=== PATIENT | female | born 1960 | race Caucasian/White ===

== ENCOUNTER 2018-10-19 19:45 | Inpatient (IN) ==
[2018-10-19] MEDS ORDERED: TORADOL IV ONE (20:15)
[2018-10-19] MEDS ORDERED: NS 1,000 ML IV ONE ×2 (20:15→23:03)
--- NOTE | 2018-10-19 20:40 | Diag Imaging Result Doc PS360 ---
EXAM: CHEST-1 VIEW HISTORY: fever TECHNIQUE: Chest single view 10/22/2017 COMPARISON: None. FINDINGS: The lungs are well expanded. The heart is not enlarged. There is a right-sided portacatheter is similar to the prior study. The vessels are not distended. Small left pleural effusion with a tiny basilar infiltrate. IMPRESSION: Tiny left basilar infiltrate and effusion Electronically signed by Juanjo Castañeda 10/19/2018 8:37 PM
[2018-10-19 21:33] LABS: BASO# 0.04 X1000 (0.0-0.2); BASO% 0.3 % (0.0-0.8); EOS# 0.05 X1000 (0.0-0.7); EOS% 0.4 % (0.0-10.0); HEMATOCRIT 33.6 % (37.0-47.0); HEMOGLOBIN 11.3 g/dL (12.0-16.0); IMM GRAN# 0.04 X1000 (0.0-0.04); IMM GRAN% 0.3 % (0.0-0.5); LYMPH% 6.8 % (20.5-51.1); MCH 35.5 PG (27-31); MCHC 33.6 g/dL (33-37); MCV 105.7 FL (81-99); MONO# 1.53 X1000 (0.11-0.59); MONO% 11.6 % (1.7-9.3); MPV 11.2 FL (7.4-10.4); NEUT# 10.63 X1000 (1.4-6.5); NEUT% 80.6 % (42.2-75.2); PLT 99 X1000 (130-400); RBC 3.18 XMIL (4.2-5.4); RDW 17.6 % (11.5-14.5); WBC 13.19 X1000 (4.8-10.8)
[2018-10-19 21:35] LABS: INR 1.4; PROTIME 17.4 Seconds (11.0-16.0)
[2018-10-19 21:36] LABS: PTT 38.7 Seconds (22.3-41.8)
[2018-10-19 21:56] LABS: AGAP 11; ALBUMIN 2.5 g/dL (3.5-5.0); ALKALINE PHOSPHATASE 375 U/L (32-104); BUN 9 mg/dL (8-22); CALCIUM 7.2 mg/dL (8.8-10.2); CHLORIDE 99 mmol/L (98-107); CK PROFILE 42 U/L (24-173); COSMO 261; CREATININE 0.6 mg/dL (0.5-0.9); ESTIMATED GFR > 60; GLUCOSE 84 mg/dL (70-104); GOT 38 U/L (10-30); GPT 16 U/L (10-36); POTASSIUM 4.6 mmol/L (3.5-5.1); SODIUM 131 mmol/L (136-145); TCO2 21 mmol/L (25-35); TOTAL BILIRUBIN 4.38 mg/dL (0.20-1.00); TOTAL PROTEIN 4.9 g/dL (6.3-8.3)
[2018-10-19 22:22] LABS: URINE SOURCE CLEAN CATCH
[2018-10-19 22:42] LABS: BILIRUBIN URINE SMALL (NEGATIVE); BLOOD URINE TRACE (NEGATIVE); COLOR YELLOW; GLUCOSE URINE NEGATIVE (NEGATIVE); KETONE URINE 10 mg/dL (NEGATIVE); LEUKOCYTES URINE NEGATIVE (NEGATIVE); NITRITE URINE NEGATIVE (NEGATIVE); PROTEIN URINE TRACE mg/dL (NEGATIVE); TURBIDITY URINE CLEAR (CLEAR); UROBILINOGEN URINE 2 mg/dL (NORMAL)
[2018-10-19 22:43] LABS: UR EPITHELIAL CELLS <10 /HPF (<10); URINE BACTERIA NEGATIVE /HPF; URINE RBC <10 /HPF (<10); URINE WBC <10 /HPF (<10)
[2018-10-19] MEDS ORDERED: VANCOMYCIN 1 GM/NS 1 GM/250 ML IVPB IV ONE (23:03)
[2018-10-19] MEDS ORDERED: ZOSYN 3.375 GM in NS 50 ML IV ONE (23:03)
--- NOTE | 2018-10-19 23:07 | PROVIDER DOCUMENTATION ---
This chart was entered by Brook Holm Scribe, acting as scribe for Chris Jean-Baptiste MD. HPI-Fever - General Chief Complaint: SEPSIS ALERT - D Stated Complaint: FEVER/SWELLING/ Time Seen by Provider: 10/19/18 20:00 Source: patient Allergies/Adverse Reactions: Patient Allergies Allergy/AdvReac Type Severity Reaction Status Date / Time No Known Allergies Allergy Verified 12/11/17 15:06 Home Medications: Home Medication List Medication Instructions Recorded Confirmed Last Taken Type Levothyroxine [Synthroid] 50 microgm PO DAILY 09/01/17 10/16/18 10/15/18 21:00 History Ranitidine [Zantac] 150 mg PO HS 09/01/17 10/16/18 10/15/18 21:00 History Dronabinol [Marinol] 2.5 mg PO BID 10/22/17 10/16/18 10/15/18 21:00 History Ondansetron HCl 4 mg PO TID 10/22/17 10/16/18 10/15/18 21:00 History Promethazine [Phenergan] 12.5 mg PO Q6H PRN PRN 10/22/17 10/16/18 10/15/18 21:00 History - History of Present Illness-Fever Nature of Presenting Problem: pt is a 58 yr old female presenting with complaint of fever and chills x 1 day, pt referred to ER by oncologist. pt reports she has colon cancer with liver mets, pt has radioactive beads implanted in liver. pt reports paracentesis performed 4 days ago with 3L pulled off. pt denies any other complaints, no shortness of breath, no pain. Fever Severity/Quality: reports: greater than 102 F Onset/Duration: reports: this afternoon Timing: reports: still present Severity: reports: moderate Context: reports: cancer-chemotherapy Recent Illness?: reports: none Fever Therapy OCCUPATIONAL THERAPIST'S ASSISTANT: Initiated none Cognitive Baseline: alert, oriented x3 Modifying Factors: improves with: nothing Associated Symptoms: reports: fever/chills. denies: back/neck pain, chest pain, EENT symptoms, genitourinary problems, sinus congestion/drainage, shortness of breath Similar Symptoms Previously?: No Recently seen or treated by another doctor?: Yes - Glascow Coma Score Best Eye Response ([place]): (4) open spontaneously Best Verbal Response ([place]): (5) oriented Best Motor Response ([place]): (6) obeys commands [place] Total: 15 Review of Systems - Adult - REVIEW OF SYSTEMS - ADULT Constitutional: reports: chills, fever Eyes: reports: no symptoms reported Ears, Nose, Mouth & Throat: denies: ear pain, sinus problem, throat pain Cardiovascular: denies: chest pain, palpitations, syncope Respiratory: denies: cough, shortness of breath Gastrointestinal: denies: abdominal pain, diarrhea, nausea, vomiting Genitourinary: denies: dysuria, frequency, flank pain Musculoskeletal: reports: no symptoms reported Integumentary: reports: no symptoms reported Neurological: denies: dizziness/vertigo, headache/migraines Psychiatric: reports: no symptoms reported Endocrine: reports: no symptoms reported Hematologic/Lymphatic: reports: no symptoms reported Allergic/Immunologic: reports: no symptoms reported All Other Systems: Reviewed and Negative Past History - Adult - PAST MEDICAL HISTORY-ADULT Review of Records: reports: Old Records Reviewed, Nursing Assessment Review, Medications Reviewed, Social history reviewed & non-contributory. Major Childhood Illnesses: reports: denies history Cardiovascular: reports: denies history Respiratory: reports: denies history Gastrointestinal: reports: denies history Obstetrical/Gynecological: reports: denies history Genitourinary: reports: denies history Musculoskeletal: reports: denies history Neurological: reports: denies history Endocrine/Immune: reports: denies history Other Conditions: reports: denies history - IMMUNIZATION STATUS Childhood Immunizations: See Nurse Assessment Flu Vaccine: See Nurse Assessment - FAMILY HISTORY Family History: reviewed, not pertinent - SOCIAL HISTORY Smoking: non-smoker Substance Use: denies Living Situation: family Physical Exam-General - PHYSICAL EXAM-ADULT Initial Vital Signs Reviewed: Yes - CONSTITUTIONAL General Appearance: alert, no apparent distress - EYES Eyes: PERRL/EOMI - HEAD, EARS, NOSE, MOUTH & THROAT HENMT: normocephalic/atraumatic, moist mucous membranes - NECK Neck: non-tender, full range of motion, supple, normal inspection - RESPIRATORY Respiratory: chest non-tender, lungs clear, normal breath sounds - CARDIOVASCULAR Cardiovascular: normal peripheral pulses, regular rate, rhythm, no edema - GASTROINTESTINAL (ABDOMEN) Abdominal Exam: normal bowel sounds, non tender, soft - LYMPHATIC Lymphatic: no adenopathy - MUSCULOSKELETAL Back Exam: normal inspection, no CVA tenderness, no vertebral tenderness Extremity: normal range of motion, non-tender, normal gait, normal inspection - SKIN Integumentary: normal color, normal turgor, warm/dry - NEUROLOGIC Neurologic: grossly normal - PSYCHIATRIC Psych/Mental Status: normal mood/affect Progress - PLAN OF CARE/RESULTS Progress/Plan/Lab Results: Vital Signs - 8 hr 10/19/18 19:53 10/19/18 20:11 10/19/18 20:20 Temperature 102.7 F H Pulse Rate 123 H 116 H 114 H Respiratory Rate 18 18 20 Blood Pressure 98/60 104/76 O2 Sat by Pulse Oximetry 95 96 96 10/19/18 20:30 10/19/18 20:31 10/19/18 20:40 Temperature Pulse Rate 115 H 114 H 115 H Respiratory Rate 23 25 H 25 H Blood Pressure 99/70 O2 Sat by Pulse Oximetry 95 95 95 10/19/18 20:50 10/19/18 21:00 10/19/18 21:01 Temperature Pulse Rate 116 H 115 H 116 H Respiratory Rate 24 17 22 Blood Pressure 97/68 O2 Sat by Pulse Oximetry 96 97 95 10/19/18 21:10 10/19/18 21:20 10/19/18 21:30 Temperature Pulse Rate 115 H 115 H 110 H Respiratory Rate 24 24 23 Blood Pressure O2 Sat by Pulse Oximetry 95 95 96 10/19/18 21:32 10/19/18 21:40 10/19/18 21:50 Temperature Pulse Rate 111 H 114 H 110 H Respiratory Rate 21 26 H 28 H Blood Pressure 99/73 O2 Sat by Pulse Oximetry 96 95 96 10/19/18 21:54 10/19/18 22:00 10/19/18 22:01 Temperature Pulse Rate 109 H 107 H 106 H Respiratory Rate 25 H 23 17 Blood Pressure 99/73 89/51 O2 Sat by Pulse Oximetry 96 96 96 10/19/18 22:10 10/19/18 22:20 Temperature Pulse Rate 105 H 102 H Respiratory Rate 17 21 Blood Pressure O2 Sat by Pulse Oximetry 96 97 Laboratory Results - last 24 hr 10/19/18 10/19/18 10/19/18 21:02 21:02 21:02 WBC 13.19 H RBC 3.18 L Hgb 11.3 L Hct 33.6 L MCV 105.7 H MCH 35.5 H MCHC 33.6 RDW Std Deviation 17.6 H Plt Count 99 L MPV 11.2 H Immature Gran % (Auto) 0.3 Neut % (Auto) 80.6 H Lymph % (Auto) 6.8 L [place] % (Auto) 11.6 H Eos % (Auto) 0.4 Baso % (Auto) 0.3 Immature Gran # (Auto) 0.04 Neut # (Auto) 10.63 H Lymph # (Auto) 0.90 L [place] # (Auto) 1.53 H Eos # (Auto) 0.05 Baso # (Auto) 0.04 PT 17.4 H INR 1.40 PTT (Actin FS) 38.7 Sodium 131 L Potassium 4.6 Chloride 99 Carbon Dioxide 21 L Anion Gap 11 BUN 9 Creatinine 0.6 Estimated GFR/1.73 m2 > 60 BUN/Creatinine Ratio 15 Glucose 84 Calculated Osmolality 261 Calcium 7.2 L Total Bilirubin 4.38 H AST 38 H ALT 16 Alkaline Phosphatase 375 H Creatine Kinase 42 Troponin T Total Protein 4.9 L Albumin 2.5 L Globulin 2.4 Albumin/Globulin Ratio 1.0 Plasma Lactate Urine Source Urine Color Urine Turbidity Urine pH Ur Specific [place] Urine Protein Ur Glucose (Stick) Ur Ketones (Stick) Urine Blood Urine Nitrite Urine Bilirubin Urobilinogen Dipstick Urine Leukocytes Urine WBC (Auto) Urine RBC (Auto) U Epithel Cells (Auto) Urine Bacteria (Auto) 10/19/18 10/19/18 10/19/18 21:02 21:02 21:52 WBC RBC Hgb Hct MCV MCH MCHC RDW Std Deviation Plt Count MPV Immature Gran % (Auto) Neut % (Auto) Lymph % (Auto) [place] % (Auto) Eos % (Auto) Baso % (Auto) Immature Gran # (Auto) Neut # (Auto) Lymph # (Auto) [place] # (Auto) Eos # (Auto) Baso # (Auto) PT INR PTT (Actin FS) Sodium Potassium Chloride Carbon Dioxide Anion Gap BUN Creatinine Estimated GFR/1.73 m2 BUN/Creatinine Ratio Glucose Calculated Osmolality Calcium Total Bilirubin AST ALT Alkaline Phosphatase Creatine Kinase Troponin T < 0.010 Total Protein Albumin Globulin Albumin/Globulin Ratio Plasma Lactate 1.1 Urine Source CLEAN CATCH Urine Color YELLOW Urine Turbidity CLEAR Urine pH 6.0 Ur Specific [place] 1.020 Urine Protein TRACE A Ur Glucose (Stick) NEGATIVE Ur Ketones (Stick) 10 A Urine Blood TRACE A Urine Nitrite NEGATIVE Urine Bilirubin SMALL A Urobilinogen Dipstick 2 A Urine Leukocytes NEGATIVE Urine WBC (Auto) <10 Urine RBC (Auto) <10 U Epithel Cells (Auto) <10 Urine Bacteria (Auto) NEGATIVE Orders Category Date Time Status Cardiac Monitoring DIRECTED Care 10/19/18 20:14 Active IV Insertion ORDERED Care 10/19/18 20:14 Completed Notify MD of + Sepsis Screen NOW Care 10/19/18 20:14 Active Notify Physician As Ordered Care 10/19/18 20:14 Active CHEST-1 VIEW [RAD] Stat Exams 10/19/18 20:14 Completed BLOOD CULTURE [BLDCUL] Stat Lab 10/19/18 21:02 Results CBC WITH DIFF [HEME] Stat Lab 10/19/18 21:02 Completed CK PROFILE [SP CHEM] Stat Lab 10/19/18 21:02 Completed COMPREHENSIVE METABOLIC PANEL [CHEM] Stat Lab 10/19/18 21:02 Completed LACTATE, PLASMA [CHEM] Lab 10/19/18 21:02 Completed LACTATE, PLASMA [CHEM] Lab 10/19/18 23:15 Uncollected LACTATE, PLASMA [CHEM] Lab 10/20/18 02:15 Uncollected PROTIME WITH INR [COAG] Stat Lab 10/19/18 21:02 Completed PTT [COAG] Stat Lab 10/19/18 21:02 Completed TROPONIN T Stat Lab 10/19/18 21:02 Completed URINALYSIS W/POSS RFLX CULT [URINALYSIS] Stat Lab 10/19/18 21:52 Completed 0.9% Sodium Chloride Inj [Ns] 1,000 ml Med 10/19/18 20:15 Discontinued IV 999 mls/hr 0.9% Sodium Chloride Inj [Ns] 1,000 ml Med 10/19/18 23:03 Active IV 999 mls/hr Ketorolac [Toradol] Med 10/19/18 20:15 Discontinued 30 mg IV NOW ONE Piperacillin/Tazobactam [Zosyn] 3.375 gm Med 10/19/18 23:03 Active 0.9% Sodium Chloride Inj [Ns] 50 ml IV NOW Vancomycin 1 gm/Ns Med 10/19/18 23:03 Active 1 gm in 250 ml IV NOW Oxygen Device Stat Oth 10/19/18 20:14 Active Result Diagrams: 10/19/18 21:02 10/19/18 21:02 - XRAY 1 XRAY Study: Chest Impression: Abnormal ( Signed EXAM: CHEST-1 VIEW HISTORY: fever TECHNIQUE: Chest single view 10/22/2017 COMPARISON: None. FINDINGS: The lungs are well expanded. The heart is not enlarged. There is a right-sided portacatheter is similar to the prior study. The vessels are not distended. Small left pleural effusion with a tiny basilar infiltrate. IMPRESSION: Tiny left basilar infiltrate and effusion Electronically signed by Juanjo Castañeda 10/19/2018 8:37 PM 10/19/182036 Interpreting Physician: Juanjo Castañeda MD Dictated Date/Time: 10/19/182035 cc: Chris Jean-Baptiste MD; Trinh Thomas NP) Departure - Departure Date of Disposition Decision: 10/19/18 Time of Disposition Decision: 23:07 DIAGNOSIS: Pneumonia Qualifiers: Pneumonia type: due to unspecified organism Laterality: left Lung location: lower lobe of lung Qualified Code(s): J18.1 - Lobar pneumonia, unspecified organism Disposition: ADMITTED INPATIENT 09 Certified Medical Emergency: Emergent Condition: Stable Referrals and Follow-Ups: Trinh Thomas NP [Primary Care Provider] - - Critical Care Note This patient required my direct & personal management of CC.: No Attestation - Physician/ YOSELIN Attestation Patient care was provided by Advanced Practice Provider:: No The physician spent face to face time with patient:: Yes Advanced Practice Provider documentation review:: Supervising physician onsite and consulted in the evaluation and care of this patient. The physician did have a face to face encounter with the patient. This chart was documented by the indicated scribe, (Brook Holm Scribe) and accurately reflects the services I performed and decisions made by me, Chris Jean-Baptiste MD, as attested by the provider's signature.
[2018-10-19] MEDS ORDERED: TYLENOL PO PRN (23:41)
[2018-10-19] MEDS ORDERED: DUONEB (A & A) INH PRN (23:41)
[2018-10-19] MEDS ORDERED: NS 1,000 ML IV SCH (23:45)
[2018-10-19] MEDS ORDERED: ZOFRAN IV PRN (23:48)
[2018-10-20 04:14] LABS: BASO# 0.04 X1000 (0.0-0.2); BASO% 0.4 % (0.0-0.8); EOS# 0.15 X1000 (0.0-0.7); EOS% 1.6 % (0.0-10.0); HEMATOCRIT 28.5 % (37.0-47.0); HEMOGLOBIN 9.3 g/dL (12.0-16.0); IMM GRAN# 0.03 X1000 (0.0-0.04); IMM GRAN% 0.3 % (0.0-0.5); LYMPH# 0.88 X1000 (1.2-3.4); LYMPH% 9.2 % (20.5-51.1); MCH 35.6 PG (27-31); MCHC 32.6 g/dL (33-37); MCV 109.2 FL (81-99); MONO# 1.37 X1000 (0.11-0.59); MONO% 14.3 % (1.7-9.3); MPV 11.1 FL (7.4-10.4); NEUT# 7.14 X1000 (1.4-6.5); NEUT% 74.2 % (42.2-75.2); PLT 77 X1000 (130-400); RBC 2.61 XMIL (4.2-5.4); RDW 17.6 % (11.5-14.5); WBC 9.61 X1000 (4.8-10.8)
[2018-10-20 05:35] LABS: AGAP 11; ALB/GLOB RATIO 1.3; ALBUMIN 2.2 g/dL (3.5-5.0); ALKALINE PHOSPHATASE 293 U/L (32-104); BUN 10 mg/dL (8-22); CALCIUM 6.7 mg/dL (8.8-10.2); CHLORIDE 104 mmol/L (98-107); COSMO 268; CREATININE 0.6 mg/dL (0.5-0.9); ESTIMATED GFR > 60; GLUCOSE 115 mg/dL (70-104); GOT 32 U/L (10-30); GPT 13 U/L (10-36); POTASSIUM 4.1 mmol/L (3.5-5.1); SODIUM 134 mmol/L (136-145); TCO2 19 mmol/L (25-35); TOTAL BILIRUBIN 3.79 mg/dL (0.20-1.00); TOTAL PROTEIN 3.9 g/dL (6.3-8.3)
[2018-10-20] MEDS: ZOSYN 2.25 GM in NS 50 ML IV SCH ×4 (05:48→22:02)
[2018-10-20] MEDS ORDERED: CALCIUM GLUCONATE 1 GM in NS 50 ML IV ONE (05:48)
[2018-10-20] MEDS: SYNTHROID PO SCH ×2 (05:48→06:31)
[2018-10-20] MEDS: PRILOSEC PO SCH ×2 (05:49→06:31)
--- NOTE | 2018-10-20 06:41 | HISTORY AND PHYSICAL ---
PRIMARY CARE PHYSICIAN: Hao Mercedes MD CHIEF COMPLAINT: Weakness. HISTORY OF PRESENT ILLNESS: Ms. Cornelius is a 58-year-old female. 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 The patient states she has been very tired and weak, and had some abdominal pain. The patient states she had a paracentesis on Friday where they removed greater than 3 L. She has since had abdominal pain. She says she has just been feeling more tired and weak. She did have a CT scan today done by [facility]. This was of the pelvis and abdomen. The patient denies any cough or congestion. She states she has not been short of breath. She denies any pain besides to the abdominal area. The patient denies any dysuria. She states that she does have blood noted in her stools, but she has had that since she has been diagnosed with cancer. The patient states that she just recently 2 weeks ago had microbead's placed to the left side of her liver, and this was done by Dr. Lopez in [place]. She was on Levaquin after they did this 750 mg daily. She completed that dose of Levaquin this past Friday. Laboratory findings in the ER show white blood cell count 13.19. Plasma lactate is negative at 1.1. Her bilirubin is 4.38. Chest x-ray was done and showed tiny left basilar infiltrate and effusion. PAST MEDICAL HISTORY: Sigmoid colon cancer with metastasis to the liver. Hypothyroidism. PAST SURGICAL HISTORY: Hysterectomy. Paracentesis this past Friday with greater than 3 L removed. Microbead's placed to the right side of the liver in May [address] Jaquez in [place]. Micro beads placed to the left side of the liver by Dr. Lopez in [place] 2 weeks ago. FAMILY HISTORY: Father from cirrhosis of the liver due to medications. Mother is still living. She has lymphoma. She has a sister that has diabetes, hypertension, and heart disease. SOCIAL HISTORY: The patient lives with her in [place]. She is disabled. She denies any alcohol, smoking, or illicit drug abuse. ALLERGIES: No known drug allergies. MEDICATIONS: 1. Synthroid 50 mg once daily. 2. Potassium 20 mEq daily. 3. Zantac 1 tablet daily. 4. Zyrtec 10 mg daily. LABS AND DIAGNOSTICS: White blood cell count 13.19, red blood cell count 3.18, hemoglobin 11.3, hematocrit 33.3, and platelet count 99,000. PT is 17.4, INR is 1.4, PTT is 38.7. Sodium is 131, potassium is 4.6, chloride is 99, carbon dioxide is 21, BUN is 9, and creatinine is 0.6. Estimated GFR is greater than 60. Glucose is 84, calcium is 7.2, bilirubin is 4.38, AST is 38, ALT is 16, alkaline phosphatase is 375. Creatine kinase is 42. Troponin is less than 0.01. Albumin is 2.5. Urinalysis is negative except for a small amount of bilirubin and trace blood and trace protein. Chest x-ray shows a small left pleural effusion with a tiny basilar infiltrate. REVIEW OF SYSTEMS: A 12 point review of system has been obtained. All are negative except for what is stated above in HPI. PHYSICAL EXAMINATION: VITAL SIGNS: Temperature is 102.7 degrees, pulse rate 115, respiratory rate 22, blood pressure is 97/68, and O2 saturation is 95% on room air. Weight is 125 pounds. Height is 5 feet 4 inches. GENERAL: This is a 58-year-old female. She is lying in the ER stretcher. She is in no acute distress. She has somewhat of a thin appearance. HEENT: Atraumatic, normocephalic. Pupils equal, round, and reactive to light. Extraocular movements intact. Sclerae is anicteric. Mucous membranes are dry. NECK: Supple. No lymphadenopathy. Trachea is midline. No JVD. CV: Regular rate and rhythm. No murmurs, gallops, or rubs appreciated. RESPIRATORY: Lung sounds are clear with equal chest excursion. Respirations are nonlabored with no accessory muscle usage. ABDOMEN: Soft. It is mildly distended and is tender to the right side of the mid abdomen. Bowel sounds are present x4. NEUROLOGIC: Cranial nerves 2-12 intact. The patient is awake, alert, and oriented. She is able to follow all commands. MUSCULOSKELETAL: Full distal strength noted. No abnormalities and states no deformity. EXTREMITIES: No clubbing or cyanosis. There is mild edema noted to the ankle region +1. DP and PT pulses are present and palpable. SKIN: Warm, dry, and intact with no rashes, bruises or diaphoresis noted. ASSESSMENT AND PLAN: 1. Pneumonia. We will admit this patient to the medical floor. We are going to place her on IV antibiotics of Zosyn. We are going to place her on monitor car operator. Repeat labs and chest x-ray in the morning. I have reordered all her home medications. She received a bolus of fluid in the ER. 2. Pleural effusion. This was noted to be a small left pleural effusion. 3. Fever. The patient is noted to have pneumonia. We have started her on IV antibiotics. We will also give Tylenol as needed for fever. 4. Hypothyroidism. We have restarted her home thyroid medication. 5. 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 I have consulted Dr. Rousseau to see her inpatient. The patient recently had a CT scan done at [facility]. 6. Anemia. Hemoglobin and hematocrit are 11.3 and 33.3. The patient does have sigmoid colon cancer with metastasis to the liver. I suspect this is anemia of chronic disease, but we have consulted Dr. Rousseau. However, patient does state that she has blood in her stools. We will follow this. 7. Hyperbilirubinemia. I suspect this is from her cancer to her liver. We will follow up with repeat labs in the morning. 8. Deep venous thrombosis prophylaxis. I have placed this patient in AMINA hose. 9. Gastrointestinal prophylaxis. I will put this patient on Prilosec daily. We are going to admit this patient to the medical floor. Start IV antibiotics for her pneumonia, and give her Tylenol as needed for fever. I have started her on a regular diet. We are going to repeat labs and chest x-ray in the morning. I have consulted Dr. Rousseau. All other further recommendations and treatment pending hospital course. Dictated by DANAE Jefferson for Denis Maria MD I have performed a face to face diagnostic evaluation. Labs/ xray- reviewed. Exam- chest -rhonchi, CV-regular A/P- Pneumonia- Admit, check blood cultures, IV ABX. Dr. Maria cc: MD Foreign Harley MD Jeremy Stidham [facility]
[2018-10-20] MEDS: NS 1,000 ML IV SCH ×2 (07:32→20:58)
--- NOTE | 2018-10-20 07:33 | Diag Imaging Result Doc PS360 ---
EXAM: CHEST-PORTABLE INDICATION: Pneumonia TECHNIQUE: One view COMPARISON: 10/19/2018 FINDINGS: The right chest port is in stable position. Inspiration is suboptimal. The trace left pleural effusion is stable and there has been development of a trace right effusion as well. No new consolidation is identified, otherwise. Cardiac silhouette is stable. IMPRESSION: Development of a trace right effusion. Stable chest, otherwise. Electronically signed by Miller Hinson 10/20/2018 7:31 AM
[2018-10-20] MEDS: MYLICON PO SCH ×2 (08:54→20:58)
[2018-10-20] MEDS: ZYRTEC PO SCH (08:55)
[2018-10-20] MEDS ORDERED: KLOR-CON PO SCH (09:00)
--- NOTE | 2018-10-20 13:43 | PROGRESS NOTE ---
DATE: 10/20/2018 Patient admitted this morning. A patient of Dr. Hao Mercedes. This is a 58-year-old who presented with weakness, presented to the emergency room. Past medical history of hypothyroidism, sigmoid colon cancer, metastasis to the liver. The patient states she has been very tired and weak, had some abdominal pain. Patient states that had a paracentesis Friday, removed greater than 3 L, and since then, has had some abdominal pain, feeling more tired and weak. Had a CT scan done by [facility] of the pelvis and abdomen. States she has not been short of breath. Denies any cough. She did note a little bit of blood in her stools but she has had that since she was diagnosed with cancer. The patient states that 2 weeks ago, micro beads were placed in the left side of her liver. This was done by Dr. Lopez in [facility]. She is on Levaquin 750 mg a day. Today, she says she feels good. I do not think she has had any fever in the last 24 hours. PHYSICAL EXAMINATION: Temperature 98.0 degrees, pulse 80, respirations 18, blood pressure 93/52. Pupils are equal and round. Lungs are clear in all lung hooper. Cardiovascular Examination: Regular rhythm and rate without murmur or S3. ASSESSMENT AND PLAN: 1. Pneumonia. Still on intravenous Zosyn. Continue to follow x-rays and clinically. Her blood cultures were negative from yesterday. 2. Small left pleural effusion. 3. Fever, consistent with pneumonia. 4. Hypothyroidism. She is on her thyroid medications. 5. Sigmoid colon cancer with metastatic cancer to the liver. Recently had some beads placed and followed by Dr. Rousseau. Recently had a CT scan done by [facility]. 6. Anemia. Follow hemoglobin and hematocrit. She has reported having some bleeding for some time from the rectum. 7. Hyperbilirubinemia secondary to the cancer in the liver. 8. Continue deep venous thrombosis prophylaxis with AMINA hoses and gastrointestinal prophylaxis. REVIEW OF HER ORDERS: I do not see any change. Discuss when to go home. cc: Stew Sofia MD
[2018-10-21] MEDS: ZOSYN 2.25 GM in NS 50 ML IV SCH ×2 (05:24→11:08)
[2018-10-21] MEDS: SYNTHROID PO SCH (06:23)
[2018-10-21] MEDS: PRILOSEC PO SCH (06:23)
[2018-10-21] MEDS: NS 1,000 ML IV SCH (08:40)
[2018-10-21] MEDS: ZYRTEC PO SCH (08:40)
[2018-10-21] MEDS: MYLICON PO SCH (08:40)
--- NOTE | 2018-10-21 09:10 | HEMO/ONC CONSULTATION ---
DATE: 10/20/2018 ADMITTING/REQUESTING PHYSICIAN: Dr. Denis Maria. We appreciate this consult. CHIEF COMPLAINT: Metastatic colorectal cancer. HISTORY OF PRESENT ILLNESS: Ms. Thi Cornelius is a 58-year-old, female well known to Dr. Rousseau with a history of metastatic colorectal adenocarcinoma. The patient has had recent increasing CEA levels, however CT scan in August did show stable disease. She is status post cycle 25 of FOLFIRI and Avastin on 09/30/2018; the patient's next dose was due 10/21/2018. The patient presented to [facility] Emergency Department stating that she has been very tired and weak with some abdominal pain. She underwent paracentesis a couple days prior where 3 L of ascitic fluid was removed. The patient reports that she had been experiencing abdominal pain since that time. Additionally, she reported cough and congestion, but denied shortness of breath. Two weeks ago the patient underwent microsphere therapy by Dr. Lopez at [facility], and was placed on Levaquin 750 mg daily. The patient reports that she finished the antibiotic approximately 6 days ago. In the emergency department, white blood cell count was found to be 13,190. Plasma lactate was negative at 1.1. Bilirubin was elevated to 4.38 secondary to liver metastasis. Chest x-ray was obtained which revealed a tiny left basilar infiltrate and effusion. The patient was admitted for pneumonia. We are consulted as she is well known to us with a history of metastatic colorectal cancer. PAST MEDICAL HISTORY: 1. 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 2. Hypothyroidism. PAST SURGICAL HISTORY: 1. Hysterectomy. 2. Microsphere placement by Dr. Lopez. 3. Paracentesis. FAMILY HISTORY: Significant for lymphoma in the patient's mother. SOCIAL HISTORY: The patient does not use alcohol, illicit drugs or tobacco. MEDICATIONS ON ADMISSION: 1. Synthroid. 2. Potassium. 3. Zantac. 4. Zyrtec. 5. Aldactone. 6. Calcium and vitamin D 3. 7. Cyclobenzaprine. 8. Decadron. 9. Levaquin. 10. EMLA cream. 11. Lomotil. 12. Magic Mouthwash. 13. Marinol. 14. Omeprazole. 15. Potassium chloride ER. 16. Promethazine. 17. Ranitidine. 18. Restoril. 19. Zofran. ALLERGIES: The patient has no known drug allergies. REVIEW OF SYSTEMS: A 14 point review of systems was obtained and is negative, except for mentioned in HPI. PHYSICAL EXAM: General: Ms. Thi Cornelius is a 58-year-old, female, lying supine in bed in no immediate distress. Vital Signs: Temperature 98.1, blood pressure 87/51, heart rate 81, respirations 18, O2 saturation is 99% on room air. HEENT: Normocephalic, atraumatic. Mucous membranes are slightly pale and moist. Sclerae is icteric. Extraocular movements intact. Neck: Supple. Lungs: Clear to auscultation bilaterally with decreased breath sounds in the left lower lobe. CV: S1, S2 is heard without murmur, rub or gallop. Abdomen: Nontender, nondistended. Bowel sounds positive all quadrants. No rebound or guarding noted. Extremities: Without clubbing, cyanosis, or edema. Dermatologic: No rashes, bruises or lesions. Neurologic: The patient is awake, alert and oriented x3. She has no focal deficit. LABORATORY DATA: Hemoglobin 9.3, hematocrit 28.5, white blood cell count is 9.61, platelets 77,000. Sodium 134, potassium 4.1, chloride 104, CO2 is 19. BUN 10, creatinine 0.6, and glucose is 115. Calcium is 6.7, bilirubin is 3.79, alkaline phosphatase 293, AST 32, ALT 13. Urinalysis is negative for UTI. IMAGING STUDIES: Chest x-ray reveals a trace right pleural effusion. ASSESSMENT AND PLAN: 1. Metastatic colorectal adenocarcinoma to the liver with increasing CEA. CT of the abdomen and pelvis in August revealed stable disease. She is status post cycle 25 of FOLFIRI and Avastin on 09/30/2018. Patient's next dose is due 10/21/2018. Additionally the patient recently underwent microsphere therapy by Dr. Lopez of [facility]. 2. Pneumonia with left pleural effusion, currently on vancomycin and Zosyn. 3. Fever on antibiotics and Tylenol. 4. Anemia with monitored complete blood count and transfused packed red blood cells if hemoglobin drops below 8.0. 5. Hyperbilirubinemia in patient with a history of liver metastasis. We will follow along with you and make further recommendations pending outcomes. The above reflects the history, exam, assessment and plan of Dr. Rousseau. Dictated by DANAE Magallanes for Foreign Rousseau MD cc: DANAE Magallanes MD [facility]
--- NOTE | 2018-10-21 11:10 | PROGRESS NOTE ---
DATE: 10/21/2018 SUBJECTIVE: Ms. Cornelius would like to go home today. She was hoping to go home today. She says she feels good. OBJECTIVE: She remains afebrile with temperature 97.7 degrees, pulse 80, respirations 16, blood pressure 98/54. Pupils are equal and round. Lungs are clear in all lung hooper. Cardiovascular: Regular rhythm and rate without murmur or S3. Abdomen is soft. Skin is warm and dry. URINE OUTPUT: 3500 mL. ASSESSMENT AND PLAN: 1. Metastatic colorectal adenocarcinoma of the liver with increasing CEA. CT of the abdomen and pelvis in August revealed stable disease. She is status post cycle 25 of FOLFIRI and Avastin on 09/30/2018. Next dose is supposed to be today. The patient recently underwent microsphere therapy per Dr. Lopez at [facility] so I want to see what Dr. Rousseau wants to do. She is due for therapy today, and of course, she wants to go home. 2. Pneumonia, left pleural effusion. On vancomycin and Zosyn. 3. Fever with antibiotics and Tylenol. 4. Anemia. Complete blood count and transfuse packed red blood cells if hemoglobin drops below 8. We will monitor the white blood cell count. 5. Hyperbilirubinemia from liver metastases. Right now, reviewing, orders we got Zosyn 2.25 g IV q.6 h., Synthroid 50 mcg daily, and normal saline at 75 mL an hour. I do not see any change. DIAGNOSTIC STUDIES: Hematocrit 20, hemoglobin 9. Electrolytes unremarkable. Calcium was 6.7 with an albumin of 2.2. cc: Stew Sofia MD
[2018-10-21 11:27] VITALS: BP 96/57
--- NOTE | 2018-10-21 15:37 | DISCHARGE SUMMARY ---
ADMISSION DATE: 10/20/2018 DISCHARGE DATE: 10/21/2018 PRIMARY CARE PHYSICIAN: Dr. Hao Mercedes. HISTORY AND HOSPITAL COURSE: This is a 58-year-old female who presented to the emergency room. She has a history of hypothyroidism, sigmoid colon cancer with metastasis to the liver. Patient says she has been tired and weak and had some abdominal pain. States she had paracentesis on Friday, removed greater than 3 L. She has since then had some abdominal discomfort and pain. States she was feeling more tired and weak. She did have a CT scan done by [facility]; it was of the pelvis and abdomen. Patient denies any cough or congestion. States she has not been short of breath. Denied any pain besides the abdominal discomfort. Denied any dysuria. States she does have a little bit of blood in her stools but that is nothing new. States that recently 2 weeks ago had micro beads placed in the left side of her liver. This was done by Dr. Lpoez in [place]. She is on Levaquin after they did this. She has been on Levaquin 750 mg a day. She completed Levaquin this last Friday. Laboratory findings in the ER showed white blood cell count 13,190. Plasma lactate was 1.1. Bilirubin was 4.38. Chest x-ray was done and showed a tiny bit of left basilar atelectasis versus infiltrate, so admission diagnosis questionable pneumonia. They put her on some Zosyn. Her blood cultures were negative. She just finished a course of Levaquin. She remained afebrile. She was feeling much better and wanted to go home on 10/21/2018. She has a little bit of pleural effusion on the left. She had some subjective fever. Her thyroid appeared euthyroid. Continue thyroid supplement. Understanding she has underlying sigmoid colon cancer with metastasis to the liver, recent micro beats put in the liver. So, she wanted to go home. We will discharge her home. DISCHARGE MEDICATIONS: She is on Synthroid 50 mcg daily, Prilosec 20 mg a day. She takes Zyrtec 10 mg a day, Prolia 60 mg as ordered, Marinol 2.5 mg b.i.d., Synthroid 50 mcg a day, Zantac 75 mg daily. Takes Gas-X as needed. I think I will probably give her some Augmentin, just have her take 875 mg p.o. twice a day for 5 days, and let her go home. ALLERGIES: She has no known drug allergies. cc: Stew Sofia MD
== END 2018-10-21 16:05 | disposition home or self-care (01) | DRG 194 ==
LOC: ED 19:45 → 3N 10-20 00:48 → SUATTDRO 10-20 00:48
PROVIDERS: ATTEND Emergency Medicine
CPT/HCPCS: 71010; 71045; 80053; 81001; 82550; 83605; 83880; 84484; 85025; 85610; 85730; 87040; 94640; 94761; 94799; 96361; 96365; 96375; 99285; A9270; J0610; J1885; J2543; J3370; J7030

== ENCOUNTER 2018-12-18 13:25 | Inpatient (IN) ==
[2018-12-18] MEDS ORDERED: ZOFRAN IV ONE (14:49)
[2018-12-18] MEDS ORDERED: MORPHINE IV ONE (14:49)
--- NOTE | 2018-12-18 14:53 | PROVIDER DOCUMENTATION ---
HPI-Female /OB/Breast - General Chief Complaint: Flank Pain Stated Complaint: RT FLANK PAIN Time Seen by Provider: 12/18/18 14:04 Source: reports: patient Allergies/Adverse Reactions: Patient Allergies Allergy/AdvReac Type Severity Reaction Status Date / Time No Known Allergies Allergy Verified 12/18/18 16:08 Home Medications: Home Medication List Medication Instructions Recorded Confirmed Last Taken Type Levothyroxine [Synthroid] 50 microgm PO DAILY 09/01/17 12/18/18 12/17/18 History Ranitidine [Zantac] 75 mg PO DAILY 09/01/17 12/18/18 12/17/18 History Ondansetron HCl 4 mg PO TID 10/22/17 12/18/18 12/17/18 History Promethazine [Phenergan] 12.5 mg PO Q6H PRN PRN 10/22/17 12/18/18 12/17/18 History Cetirizine HCl [Zyrtec] 10 mg PO DAILY 10/20/18 12/18/18 12/17/18 History Denosumab [Prolia] 60 mg SQ ORDERED 10/20/18 12/18/18 12/17/18 History Potassium Chloride E.r. [Klor-Con] 20 meq PO DAILY 10/20/18 12/18/18 12/17/18 History Simethicone [Gas-X] 125 mg PO BID 10/20/18 12/18/18 12/17/18 History Acetaminophen [Tylenol] 650 mg PO Q4H PRN PRN tab 10/21/18 12/18/18 12/17/18 Rx Cetuximab [Erbitux] 200 mg IV ORDERED 11/06/18 12/18/18 12/17/18 History Oxaliplatin [Eloxatin] 50 mg IV ORDERED 11/06/18 12/18/18 12/17/18 History - History of Present Illness-Female /OB Nature of Presenting Problem: Patient is a 58 yowf who complains of right flank pain associated with nausea and dysuria x 3 hours. Denies fever or any other complaints. Hx of colon cancer with metastasis to liver, on chemotherapy. Review of Systems - Adult - REVIEW OF SYSTEMS - ADULT Constitutional: reports: no symptoms reported Eyes: reports: no symptoms reported Ears, Nose, Mouth & Throat: reports: no symptoms reported Cardiovascular: reports: no symptoms reported Respiratory: reports: no symptoms reported Gastrointestinal: reports: see HPI, nausea Genitourinary: reports: see HPI Musculoskeletal: reports: no symptoms reported Integumentary: reports: no symptoms reported Neurological: reports: no symptoms reported Psychiatric: reports: no symptoms reported Endocrine: reports: no symptoms reported Hematologic/Lymphatic: reports: no symptoms reported Allergic/Immunologic: reports: no symptoms reported All Other Systems: Reviewed and Negative Past History - Adult - PAST MEDICAL HISTORY-ADULT Review of Records: reports: Nursing Assessment Review, Medications Reviewed, Social history reviewed & non-contributory. Major Childhood Illnesses: reports: denies history Cardiovascular: reports: denies history Respiratory: reports: denies history Gastrointestinal: reports: cancer, GERD Genitourinary: reports: denies history Musculoskeletal: reports: denies history Neurological: reports: denies history Endocrine/Immune: reports: immunosuppression, thyroid disorder Other Conditions: reports: denies history - PRIOR SURGERIES/PROCEDURES Surgical/Procedure History: reports: reviewed, not pertinent, cholecystectomy, hysterectomy - FAMILY HISTORY Family History: reviewed, not pertinent - SOCIAL HISTORY Smoking: non-smoker Physical Exam-General - PHYSICAL EXAM-ADULT Initial Vital Signs Reviewed: Yes - CONSTITUTIONAL General Appearance: alert, moderate distress. negative: lethargic, slow to respond - EYES Eyes: PERRL/EOMI, pink conjunctivae - HEAD, EARS, NOSE, MOUTH & THROAT HENMT: normocephalic/atraumatic, moist mucous membranes - NECK Neck: full range of motion, supple, normal inspection - RESPIRATORY Respiratory: chest non-tender, lungs clear, normal breath sounds, no pleuratic chest pain, no respiratory distress, no accessory muscle use - CARDIOVASCULAR Cardiovascular: regular rate, rhythm, no gallop, no murmur - GASTROINTESTINAL (ABDOMEN) Abdominal Exam: normal bowel sounds, distended, tenderness (RLQ). negative: guarding, rigid, rebound, hernia, mass - MUSCULOSKELETAL Back Exam: normal inspection, CVA tenderness (right) Extremity: normal range of motion, non-tender, normal inspection - SKIN Integumentary: normal color, warm/dry. negative: cyanosis, diaphoresis, jaundice, mottled, pallor - NEUROLOGIC Neurologic: grossly normal, no motor/sensory deficits - PSYCHIATRIC Psych/Mental Status: normal mood/affect, normal thought content, normal thought process, oriented x 3 Progress - PLAN OF CARE/RESULTS Progress/Plan/Lab Results: Vital Signs - 8 hr 12/18/18 13:47 12/18/18 16:28 12/18/18 16:32 Temperature 97.3 F L Pulse Rate 84 81 Respiratory Rate 20 17 Blood Pressure 98/68 93/71 108/67 O2 Sat by Pulse Oximetry 98 97 98 Laboratory Results - last 24 hr 12/18/18 12/18/18 12/18/18 15:11 15:11 15:11 WBC 36.23 H RBC 3.38 L Hgb 12.7 Hct 35.7 L MCV 105.6 H MCH 37.6 H MCHC 35.6 RDW Std Deviation 20.4 H Plt Count 94 L MPV 11.4 H Immature Gran % (Auto) 0.5 Neut % (Auto) 95.2 H Lymph % (Auto) 3.5 L [place] % (Auto) 0.6 L Eos % (Auto) 0.1 Baso % (Auto) 0.1 Immature Gran # (Auto) 0.18 H Neut # (Auto) 34.49 H Lymph # (Auto) 1.28 [place] # (Auto) 0.22 Eos # (Auto) 0.02 Baso # (Auto) 0.04 Segmented Neutrophils 95 H Lymphocytes 4 L Monocytes 1 Pathologist Review Macrocytosis 1+ PT INR PTT (Actin FS) Sodium 134 L Potassium 5.4 H Chloride 104 Carbon Dioxide 15 L Anion Gap 15 BUN 23 H Creatinine 0.6 Estimated GFR/1.73 m2 > 60 BUN/Creatinine Ratio 38 Glucose 100 Calculated Osmolality 272 Calcium 8.5 L Magnesium 1.8 Total Bilirubin 4.18 H AST 104 H ALT 71 H Alkaline Phosphatase 410 H Creatine Kinase 98 Troponin T Total Protein 5.3 L Albumin 3.1 L Globulin 2.2 Albumin/Globulin Ratio 1.4 Amylase 66 Lipase 36 Urine Source Urine Color Urine Turbidity Urine pH Ur Specific [employer] Urine Protein Ur Glucose (Stick) Ur Ketones (Stick) Urine Blood Urine Nitrite Urine Bilirubin Urobilinogen Dipstick Urine Leukocytes Urine WBC (Auto) Urine RBC (Auto) U Epithel Cells (Auto) Urine Bacteria (Auto) Urine Crystals Small Round Cells Urine Casts Urine Yeast-like Cells 12/18/18 12/18/18 12/18/18 15:11 15:11 17:03 WBC RBC Hgb Hct MCV MCH MCHC RDW Std Deviation Plt Count MPV Immature Gran % (Auto) Neut % (Auto) Lymph % (Auto) [place] % (Auto) Eos % (Auto) Baso % (Auto) Immature Gran # (Auto) Neut # (Auto) Lymph # (Auto) [place] # (Auto) Eos # (Auto) Baso # (Auto) Segmented Neutrophils Lymphocytes Monocytes Pathologist Review Macrocytosis PT 18.9 H INR 1.55 PTT (Actin FS) 26.4 Sodium Potassium Chloride Carbon Dioxide Anion Gap BUN Creatinine Estimated GFR/1.73 m2 BUN/Creatinine Ratio Glucose Calculated Osmolality Calcium Magnesium Total Bilirubin AST ALT Alkaline Phosphatase Creatine Kinase Troponin T < 0.010 Total Protein Albumin Globulin Albumin/Globulin Ratio Amylase Lipase Urine Source CLEAN CATCH Urine Color STRAW Urine Turbidity TURBID Urine pH 6.0 Ur Specific [employer] 1.030 Urine Protein 30 A Ur Glucose (Stick) NEGATIVE Ur Ketones (Stick) TRACE A Urine Blood LARGE A Urine Nitrite POSITIVE A Urine Bilirubin SMALL A Urobilinogen Dipstick NORMAL Urine Leukocytes NEGATIVE Urine WBC (Auto) TNTC A Urine RBC (Auto) TNTC A U Epithel Cells (Auto) <10 Urine Bacteria (Auto) NEGATIVE Urine Crystals CA OXALATE PRESENT Small Round Cells Not Reportable Urine Casts NONE SEEN Urine Yeast-like Cells NONE SEEN Orders Category Date Time Status Cardiac Monitoring DIRECTED Care 12/18/18 16:17 Active IV Insertion ORDERED Care 12/18/18 16:17 Active Notify MD of + Sepsis Screen NOW Care 12/18/18 16:17 Active Notify Physician As Ordered Care 12/18/18 16:17 Active Nursing- MD Consult Request ROUTINE Care 12/18/18 16:21 Active Saline Loc NOW Care 12/18/18 14:49 Active Vital Signs Order Q30M Care 12/18/18 16:30 Active Physician/Provider Consults Routine Cons 12/18/18 16:19 Ordered CHEST-1 VIEW [RAD] Stat Exams 12/18/18 16:[address] RENAL STONE SEARCH [CT] Stat Exams 12/18/18 14:49 Completed AMYLASE [CHEM] Stat Lab 12/18/18 15:11 Completed BLOOD CULTURE [BLDCUL] Stat Lab 12/18/18 16:17 Uncollected CBC WITH DIFF [HEME] Stat Lab 12/18/18 15:11 Completed CK PROFILE [SP CHEM] Stat Lab 12/18/18 15:11 Completed COMPREHENSIVE METABOLIC PANEL [CHEM] Stat Lab 12/18/18 15:11 Completed LACTATE, PLASMA [CHEM] Lab 12/18/18 16:30 Uncollected LACTATE, PLASMA [CHEM] Lab 12/18/18 19:30 Uncollected LACTATE, PLASMA [CHEM] Lab 12/18/18 22:30 Uncollected LIPASE [CHEM] Stat Lab 12/18/18 15:11 Completed MAGNESIUM [CHEM] Stat Lab 12/18/18 15:11 Completed PROTIME WITH INR [COAG] Stat Lab 12/18/18 15:11 Completed PTT [COAG] Stat Lab 12/18/18 15:11 Completed TROPONIN T Stat Lab 12/18/18 15:11 Completed UA NIMS W/REFLEX CULT [URINALYSIS] Stat Lab 12/18/18 17:03 Completed URINE CULTURE [RM] Routine Lab 12/18/18 17:36 Received URINE MANUAL MICROSCOPIC [URINALYSIS] Stat Lab 12/18/18 17:03 Completed Levofloxacin 750 mg/D5w [Levaquin 750 mg/D5w] Med 12/18/18 16:58 Active 750 mg in 150 ml IV NOW Morphine Med 12/18/18 14:49 Discontinued 2 mg IV NOW ONE Ondansetron [Zofran] Med 12/18/18 14:49 Discontinued 4 mg IV NOW ONE Piperacillin/Tazobactam [Zosyn] 3.375 gm Med 12/18/18 16:18 Discontinued 0.9% Sodium Chloride Inj [Ns] 50 ml IV NOW Oxygen Device Stat Oth 12/18/18 16:17 Active EKG [EKG] Stat Ther 12/18/18 16:30 Ordered Transfer/Admit Order [TRANSFER] Routine Transfer 12/18/18 17:26 Ordered Result Diagrams: 12/18/18 15:11 12/18/18 15:11 - REASSESSMENT Reassessment #1 Time Reassessed: 16:10 Status: other (Spoke with office who will send Dr. Colmenares a message and have him call me back.) Reassessment #2 Time Reassessed: 16:58 Status: other (Admitting [facility] paged.) - CT/MRI 1 CT Study: Renal Stone ([facility] - [address], [address], [place] [address] [facility] - [address] [place] [address] Department of Imaging Patient: CHAD CORNELIUS Date: 12/18/18#: [id number] : 1960DM [facility] [id number] Age/Sex: 58/FRoom/Bed: Loc: ED Ordering Physician: Shani Villegas Family Physician: Hao Mercedes MD Reason for Procedure: right flank pain ___ Signed EXAM: CT RENAL STONE SEARCH INDICATION: right flank pain TECHNIQUE: This exam was performed using automated exposure control, adjustment of mA or kV according to patient size, and/or use of iterative reconstruction technique. COMPARISON: None. FINDINGS: There are several subcentimeter lung nodules at both the left and right lower lung zones that measure between 6 mm and 7 mm. They are suspicious for metastatic foci given the history of metastatic colon carcinoma. There is large volume ascites throughout the abdomen and pelvis. There has been a prior cholecystectomy. There are innumerable metastatic lesions seen throughout the liver, most of which exhibit irregular calcification. The spleen, pancreas, and adrenal glands are essentially unremarkable. There are a couple of nonobstructing intrarenal stones on the left. There is moderate right hydroureteronephrosis on the right. However, no obstructing stones are appreciated. This could be due to a recently passed stone or an occult obstructing lesion involving the distal ureter that is not seen on this unenhanced study. The urinary bladder is completely nondistended. The colonic wall appears mildly thickened, especially the ascending colon and part of the transverse colon. It is nonspecific and could simply be related to the surrounding ascites. Colitis cannot be excluded, however. There is no evidence of bowel obstruction. The remainder of the GI tract is grossly unremarkable as imaged with unenhanced CT. There is diffuse mesenteric edema. There is nothing to suggest bony metastatic disease to the abdomen or pelvis. There is body wall anasarca. IMPRESSION: 1.Large volume ascites. 2.Diffuse metastatic disease seen throughout the liver parenchyma. 3.Moderate right hydroureteronephrosis but no obstructing ureteral stone is identified. This could be due to a recently passed stone or another occult obstructing lesion. 4.Several subcentimeter lung nodules that are suspicious for metastatic foci. 5.Mild colonic wall thickening that is often simply due to ascites. However, colitis is possible in the right clinical scenario. Electronically signed by Miller Hinson 12/18/2018 3:51 PM 12/18/18 1551 Inte rpreting Physician: Miller Hinson MD Dictated Date/Time: 12/18/18 1540 cc: Shani Villegas; Hao Mercedes MD) - CONSULTS/PCP/HOSPITALIST Notification #1 *Consult/PCP/Hospitalist*: Dr. Rousseau Time Discussed: 16:19 Reason/Comments: leukocytosis, colitis, hydronephrosis, ascites, pt known to him Consult Disposition: Admit (States to admit to [facility] and consult him.) #2 Consult: Elana, [facility] LYFT DRIVER Time Discussed: 17:04 Reason/Comments: right hydronephrosis Consult Disposition: Admit (to Dr. Cornelius. Urology also paged at this time for consult per request of Elana.) #3 Consult: Dr. Nichols- urology Time Discussed: 17:09 Reason/Comments: hydronephrosis, flank pain Consult Disposition: other (Discussed CT report with knowledge management consultant. states he does not need to be consulted while pt is in the hospital since there is no obstructing stone.) Departure - Departure Date of Disposition Decision: 12/18/18 Time of Disposition Decision: 16:10 DIAGNOSIS: Flank pain, Colitis, Colonic mass, Lung nodule Leukocytosis Qualifiers: Leukocytosis type: unspecified Qualified Code(s): D72.829 - Elevated white blood cell count, unspecified UTI (urinary tract infection) Qualifiers: Urinary tract infection type: site unspecified Hematuria presence: with he maturia Qualified Code(s): N39.0 - Urinary tract infection, site not specified; R31.9 - Hematuria, unspecified Liver malignancy Qualifiers: Liver malignancy type: unspecified liver malignancy Qualified Code(s): C22.9 - Malignant neoplasm of liver, not specified as primary or secondary Disposition: ADMITTED INPATIENT 09 Certified Medical Emergency: Emergent Condition: Fair Referrals and Follow-Ups: Hao Mercedes MD [Primary Care Provider] - - Critical Care Note This patient required my direct & personal management of CC.: No Attestation - Physician/ YOSELIN Attestation Patient care was provided by Advanced Practice Provider:: Yes Advanced Practice Provider:: Shani Villegas Advanced Practice Provider documentation review:: The Mid-level provider documentation, treatment plan and medical decision making was reviewed by the physician who agrees with all treatment and medical decision making by the MLP. The physician spent face to face time with patient:: No Advanced Practice Provider documentation review:: Supervising physician onsite and consulted in the evaluation and care of this patient. The physician did not have a face to face encounter with the patient.
[2018-12-18 15:29] LABS: BASO# 0.04 X1000 (0.0-0.2); BASO% 0.1 % (0.0-0.8); EOS# 0.02 X1000 (0.0-0.7); EOS% 0.1 % (0.0-10.0); HEMATOCRIT 35.7 % (37.0-47.0); HEMOGLOBIN 12.7 g/dL (12.0-16.0); IMM GRAN# 0.18 X1000 (0.0-0.04); IMM GRAN% 0.5 % (0.0-0.5); LYMPH# 1.28 X1000 (1.2-3.4); LYMPH% 3.5 % (20.5-51.1); MCH 37.6 PG (27-31); MCHC 35.6 g/dL (33-37); MCV 105.6 FL (81-99); MONO# 0.22 X1000 (0.11-0.59); MONO% 0.6 % (1.7-9.3); MPV 11.4 FL (7.4-10.4); NEUT# 34.49 X1000 (1.4-6.5); NEUT% 95.2 % (42.2-75.2); PLT 94 X1000 (130-400); RBC 3.38 XMIL (4.2-5.4); RDW 20.4 % (11.5-14.5); WBC 36.23 X1000 (4.8-10.8)
[2018-12-18 15:41] LABS: LYMPHS 4 % (21-51); MONO 1 % (1-9); SEGS 95 % (42-75)
--- NOTE | 2018-12-18 15:54 | Diag Imaging Result Doc PS360 ---
EXAM: CT RENAL STONE SEARCH INDICATION: right flank pain TECHNIQUE: This exam was performed using automated exposure control, adjustment of mA or kV according to patient size, and/or use of iterative reconstruction technique. COMPARISON: None. FINDINGS: There are several subcentimeter lung nodules at both the left and right lower lung zones that measure between 6 mm and 7 mm. They are suspicious for metastatic foci given the history of metastatic colon carcinoma. There is large volume ascites throughout the abdomen and pelvis. There has been a prior cholecystectomy. There are innumerable metastatic lesions seen throughout the liver, most of which exhibit irregular calcification. The spleen, pancreas, and adrenal glands are essentially unremarkable. There are a couple of nonobstructing intrarenal stones on the left. There is moderate right hydroureteronephrosis on the right. However, no obstructing stones are appreciated. This could be due to a recently passed stone or an occult obstructing lesion involving the distal ureter that is not seen on this unenhanced study. The urinary bladder is completely nondistended. The colonic wall appears mildly thickened, especially the ascending colon and part of the transverse colon. It is nonspecific and could simply be related to the surrounding ascites. Colitis cannot be excluded, however. There is no evidence of bowel obstruction. The remainder of the GI tract is grossly unremarkable as imaged with unenhanced CT. There is diffuse mesenteric edema. There is nothing to suggest bony metastatic disease to the abdomen or pelvis. There is body wall anasarca. IMPRESSION: 1.Large volume ascites. 2.Diffuse metastatic disease seen throughout the liver parenchyma. 3.Moderate right hydroureteronephrosis but no obstructing ureteral stone is identified. This could be due to a recently passed stone or another occult obstructing lesion. 4.Several subcentimeter lung nodules that are suspicious for metastatic foci. 5.Mild colonic wall thickening that is often simply due to ascites. However, colitis is possible in the right clinical scenario. Electronically signed by Miller Hinosn 12/18/2018 3:51 PM
[2018-12-18] MEDS ORDERED: ZOSYN 3.375 GM in NS 50 ML IV ONE (16:18)
[2018-12-18 16:38] LABS: INR 1.55; PROTIME 18.9 Seconds (11.0-16.0)
[2018-12-18 16:39] LABS: PTT 26.4 Seconds (22.3-41.8)
[2018-12-18 16:41] LABS: ESTIMATED GFR > 60
[2018-12-18 16:50] LABS: AGAP 15; ALB/GLOB RATIO 1.4; ALBUMIN 3.1 g/dL (3.5-5.0); ALKALINE PHOSPHATASE 410 U/L (32-104); AMYLASE 66 U/L (20-200); BUN 23 mg/dL (8-22); CALCIUM 8.5 mg/dL (8.8-10.2); CHLORIDE 104 mmol/L (98-107); COSMO 272; CREATININE 0.6 mg/dL (0.5-0.9); GLUCOSE 100 mg/dL (70-104); GOT 104 U/L (10-30); GPT 71 U/L (10-36); LIPASE 36 U/L (13-60); POTASSIUM 5.4 mmol/L (3.5-5.1); SODIUM 134 mmol/L (136-145); TCO2 15 mmol/L (25-35); TOTAL BILIRUBIN 4.18 mg/dL (0.20-1.00); TOTAL PROTEIN 5.3 g/dL (6.3-8.3)
[2018-12-18 16:54] LABS: MAGNESIUM 1.8 mg/dL (1.5-2.7)
[2018-12-18] MEDS ORDERED: LEVAQUIN 750 MG/D5W 750 MG/150 ML IVPB IV ONE (16:58)
[2018-12-18 17:21] LABS: URINE SOURCE CLEAN CATCH
[2018-12-18 17:30] LABS: UR EPITHELIAL CELLS <10 /HPF (<10); URINE BACTERIA NEGATIVE /HPF; URINE RBC TNTC /HPF (<10); URINE WBC TNTC /HPF (<10)
[2018-12-18 17:33] LABS: BILIRUBIN URINE SMALL (NEGATIVE); BLOOD URINE LARGE (NEGATIVE); COLOR STRAW; GLUCOSE URINE NEGATIVE (NEGATIVE); KETONE URINE TRACE mg/dL (NEGATIVE); TURBIDITY URINE TURBID (CLEAR)
[2018-12-18 17:34] LABS: LEUKOCYTES URINE NEGATIVE (NEGATIVE); NITRITE URINE POSITIVE (NEGATIVE); PROTEIN URINE 30 mg/dL (NEGATIVE); UROBILINOGEN URINE NORMAL (NORMAL)
[2018-12-18 17:39] LABS: URINE YEAST NONE SEEN
[2018-12-18 17:40] LABS: URINE CASTS NONE SEEN; URINE CRYSTALS CA OXALATE PRESENT
--- NOTE | 2018-12-18 17:58 | Diag Imaging Result Doc PS360 ---
EXAM: CHEST-1 VIEW INDICATION: ca pt, possible sepsis TECHNIQUE: One view COMPARISON: 10/20/2018 FINDINGS: Right chest port is stable. Inspiration is suboptimal. The lungs are grossly clear. There is no discrete pleural fluid collection or pneumothorax. The cardiomediastinal silhouette and central vasculature are grossly unremarkable. IMPRESSION: No evidence of acute pathology by plain radiograph. Electronically signed by Miller Hinson 12/18/2018 5:56 PM
--- NOTE | 2018-12-18 18:19 | EKG Report ---
Test Performed on : 12/18/2018 6:12:20 PM Test Reason : flank pain Blood Pressure : / mmHG Vent. Rate : 084 BPM Atrial Rate : 084 BPM P-R Int : 128 ms QRS Dur : 074 ms QT Int : 392 ms P-R-T Axes : 004 009 022 degrees QTc Int : 463 ms Normal sinus rhythm. Cannot rule out Anterior infarct , age undetermined Abnormal ECG No previous ECGs available Confirmed by Carla OCHOA, Adis Stern ([id number]) on 12/22/2018 1:03:02 PM
--- NOTE | 2018-12-18 18:33 | HISTORY AND PHYSICAL ---
PRIMARY CARE PHYSICIAN: Dr. Hao Mercedes. ONCOLOGIST: Dr. Rousseau. CHIEF COMPLAINT: Right flank pain with some mild nausea for the past 3 hours that has progressively worsened. HISTORY OF PRESENTING ILLNESS: This is a 58-year-old female who presents to [facility], with complaints of right flank pain with some associated nausea and some mild dysuria that began approximately 3 hours prior to arriving. She is noted to have a history of colon cancer with metastases to the liver and had a paracentesis approximately 2 weeks ago where they drained 5 L. She continues on chemotherapy. Received her Neulasta injection today. Her workup showed a white blood cell count of 36.23. Her AST is 104, ALT 71, total bilirubin of 4.18. Amylase and lipase are normal. We did a renal CT that showed a large-volume ascites, diffuse metastatic disease seen throughout the liver parenchyma, moderate right hydroureteronephrosis, but no obstructing ureteral stone identified. Could be due to a recently passed stone or other occult obstructing lesion. There is a mild colonic wall thickening that is often simply due to the ascites; however, colitis is possible in the right clinical scenario, but the patient clinically does not present with any type of abdominal pain at this time, so she will be admitted for further evaluation and treatment. PAST MEDICAL HISTORY: Colon cancer with metastases to the liver, GERD and hypothyroidism. PAST SURGICAL HISTORY: Cholecystectomy, hysterectomy, appendectomy, eye surgery and a tonsillectomy. FAMILY HISTORY: Her dad had cirrhosis of the liver. Her mom has lymphoma, heart disease and hypertension. SOCIAL HISTORY: She currently lives with family. Denies any tobacco, alcohol or illicit drug use. ALLERGIES: She has no known drug allergies. HOME MEDICATIONS: Will obtain a current list, reconcile and review home medications, and restart as appropriate. LABORATORY DATA: Showed a white blood cell count of 36.23, hemoglobin 12.7, hematocrit 35.7, platelets 94, PT and INR of 18.9 and 1.55. Sodium 134, potassium 5.4, chloride 104, CO2 of 15, BUN of 23, creatinine 0.6, glucose 100, magnesium of 1.8. Total bilirubin of 4.18, AST of 104, ALT 71, alkaline phosphatase 410. Cardiac enzyme was negative. Amylase and lipase were normal. Renal CT showed an impression of large-volume ascites, diffuse metastatic disease seen throughout the liver parenchyma, moderate right hydroureteronephrosis but no obstructing ureteral stone identified (and this could be due to a recently passed stone or another occult obstructing lesion), several subcentimeter lung nodules that are suspicious for metastatic foci, and mild colonic wall thickening that is often simply due to ascites; however, colitis is possible in the right clinical scenario. REVIEW OF SYSTEMS: She denied any fever, chills, blurred vision, dizziness, chest pain, coughing, shortness of breath. She denied any abdominal pain. She did have right flank pain, some nausea and dysuria. No constipation or diarrhea. PHYSICAL EXAMINATION: On arrival she had a temperature of 97.3, pulse 84, respirations 20. Blood pressure was 98/68, saturating 98% on room air. Currently, blood pressure is up to 108/67. GENERAL: This is a 58-year-old female who is lying in the bed. Answers questions appropriately. HEENT: Normocephalic, atraumatic. Normal ENT inspection. Oropharynx and nares are clear. EYES: Pupils are equal, round, and reactive to light and accommodation. Extraocular movements are intact. NECK: Normal inspection, normal range of motion. LUNGS: Clear to auscultation bilaterally with equal lung expansion and chest wall movement. HEART: With regular rate and rhythm. No murmurs, rubs, or gallops. ABDOMEN: Soft. Distention was noted to palpation. Bowel sounds were present x4 quadrants. MUSCULOSKELETAL: She had 5/5 strength x4 extremities. SKIN: Was noted to be flaky and dry, with dry oropharynx noted as well. Mucous membranes were dry. NEUROLOGICAL: Cranial nerves 2-12 are grossly intact. ASSESSMENT: 1. Likely pyelonephritis with a possible spontaneous bacterial peritonitis. 2. Ascites. 3. Leukocytosis. 4. A right moderate hydroureteronephrosis. 5. Colon cancer with liver metastases. PLAN: She will be admitted to the medical unit, placed on telemetry, regular diet., We will consult Oncology. We will do an ultrasound-guided abdominal paracentesis in the a.m. ultrasound of her renal in the a.m., place on cefepime 2 grams IV every 12 hours. We will start that in the morning because she received a dose of Zosyn and Levaquin in the ER to cover for today. Normal saline at 75 mL/hour. Continue home medications as previously noted. Morphine 4 mg IV every 3 hours p.r.n. If her symptoms do not improve with the antibiotics over the next 1-2 days, we will consult Urology at that time for further intervention. Further orders after seen by attending and by php consultant. Dictated by DANAE Baca for Ronald Cornelius MD cc: DANAE Baca Hao Rosasdham Patient admitted with R abdominal/flank pain of sudden onset. no aggravating or alleviating features but does have R CVA tenderness on exam with benign abdomen. some mild nausea but no vomiting or diarrhea. suspect pyelonephritis and some concern on CT for ureteral obstruction. urology contacted by the ED and recommended conservative therapy for now. placed on cefepime for likely pyelo, and less likely SBP. will reassess ureter with US in the morning and get paracentesis for cell count to eval for potential SBP. leukocytosis may be infection related or due to GCSF that she got this morning post-chemo. MTDD
[2018-12-18] MEDS ORDERED: PHENERGAN PO PRN (19:34)
[2018-12-18] MEDS ORDERED: TYLENOL PO PRN ×2 (19:34)
[2018-12-18] MEDS ORDERED: MORPHINE IV PRN (19:34)
[2018-12-18] MEDS ORDERED: ZOFRAN IV PRN (19:34)
[2018-12-18] MEDS ORDERED: MAXIPIME 2 GM in NS 100 ML IV SCH (20:00)
[2018-12-18] MEDS: MYLICON PO SCH (22:18)
[2018-12-18] MEDS: NS 1,000 ML IV SCH (22:55)
[2018-12-18] MEDS: MAXIPIME 2 GM in NS 100 ML IV SCH (22:56)
[2018-12-19 06:46] LABS: BASO# 0.02 X1000 (0.0-0.2); EOS# 0.08 X1000 (0.0-0.7); EOS% 0.2 % (0.0-10.0); HEMATOCRIT 29.2 % (37.0-47.0); HEMOGLOBIN 9.8 g/dL (12.0-16.0); IMM GRAN% 7.1 % (0.0-0.5); LYMPH# 1.18 X1000 (1.2-3.4); LYMPH% 2.9 % (20.5-51.1); MCH 36.4 PG (27-31); MCHC 33.6 g/dL (33-37); MCV 108.6 FL (81-99); MONO# 0.15 X1000 (0.11-0.59); MONO% 0.4 % (1.7-9.3); MPV 11.7 FL (7.4-10.4); NEUT# 36.68 X1000 (1.4-6.5); NEUT% 89.4 % (42.2-75.2); PLT 51 X1000 (130-400); RBC 2.69 XMIL (4.2-5.4); WBC 41.01 X1000 (4.8-10.8)
[2018-12-19 07:08] LABS: AGAP 9; BUN 25 mg/dL (8-22); CALCIUM 7.3 mg/dL (8.8-10.2); CHLORIDE 107 mmol/L (98-107); COSMO 272; CREATININE 0.6 mg/dL (0.5-0.9); ESTIMATED GFR > 60; GLUCOSE 92 mg/dL (70-104); POTASSIUM 5.6 mmol/L (3.5-5.1); SODIUM 134 mmol/L (136-145); TCO2 18 mmol/L (25-35)
[2018-12-19 07:27] LABS: BANDS 2 % (0-1); LYMPHS 4 % (21-51); MONO 2 % (1-9); SEGS 92 % (42-75)
[2018-12-19] MEDS ORDERED: MAXIPIME 2 GM in NS 100 ML IV SCH (09:00)
[2018-12-19] MEDS ORDERED: KLOR-CON PO SCH (09:00)
--- NOTE | 2018-12-19 09:30 | Diag Imaging Result Doc PS360 ---
EXAM: US RENAL 2 (RETROPER) COMPLETE 12/19/2018 HISTORY: Pyelonephritis TECHNIQUE: Renal ultrasound COMMENT: There is marked ascites. The kidneys are hyperechoic in appearance. There is no evidence of hydronephrosis or mass. The right kidney is 10.3 x 4.4 x 4.3 cm the left is 10.2 x 4.2 x 4.1 cm. There is a 7 mm cyst in the anterior right kidney. IMPRESSION: No evidence of obstructive uropathy. Hyperechoic kidneys consistent with medical renal disease. Electronically signed by Jacob Day 12/19/2018 9:28 AM
--- NOTE | 2018-12-19 09:55 | Diag Imaging Result Doc PS360 ---
EXAM: US ABD PARACENTESIS W S/I 12/19/2018 HISTORY: Ascites,Colon Ca w/ascites TECHNIQUE: Ultrasound-guided paracentesis COMMENT: The risks and benefits of the procedure including the possibility of bleeding, infection, or reaction to lidocaine were discussed with the patient and she agreed to the procedure. Following sterile preparation the skin laterally in the upper right abdomen and administration 1% lidocaine to the skin and deeper soft tissues, the paracentesis catheter was placed and subsequently 1 L of straw-colored fluid was drained. There is no apparent immediate complication. The fluid was sent in its entirety to the laboratory. IMPRESSION: Successful ultrasound-guided paracentesis. Electronically signed by Jacob Day 12/19/2018 9:52 AM
[2018-12-19] MEDS: MAXIPIME 2 GM in NS 100 ML IV SCH ×2 (10:14→20:35)
[2018-12-19] MEDS: MYLICON PO SCH ×2 (10:19→20:35)
[2018-12-19] MEDS: ZYRTEC PO SCH (10:19)
[2018-12-19] MEDS: SYNTHROID PO SCH (10:20)
[2018-12-19] MEDS: ZANTAC PO SCH (10:20)
[2018-12-19 13:22] LABS: TOTAL PROT BODY FLUID 0.8 g/dL
[2018-12-19 13:29] LABS: ALBUMIN BODY FLUID 0.4 g/dL
[2018-12-19 13:54] LABS: BODY FLUID SOURCE PERITONEAL FLUID; MONOS 48 %; POLYS 52 %; WBC BF 37 /cumm
--- NOTE | 2018-12-19 13:54 | PROGRESS NOTE ---
DATE: 12/19/2018 INTERVAL HISTORY: The patient reports a marked improvement in her symptoms. Right flank pain essentially resolved entirely. Afebrile. Fatigue and malaise also much improved. Dysuria, essentially resolved. No new complaints. No acute events overnight. Patient status post paracentesis this morning with IR with 1 L removed. REVIEW OF SYSTEMS: Twelve point review of systems negative except as per interval history. LABS: WBC 41, hemoglobin 9.8, hematocrit 29.2, platelets 51,000. Sodium 134, potassium 5.6, bicarb 18, BUN 25, creatinine 0.6, lactate 1.1. Pleural fluid labs pending. IMAGING: Ultrasound guided paracentesis successful with 1 L removed. Renal ultrasound with no further evidence of obstruction. VITALS: T-max 98.4 degrees, pulse 80, respirations 16, blood pressure 91/53, O2 saturation 98% on room air. PHYSICAL EXAMINATION: General: No acute distress. Chronically ill appearing. Vitals: As above. HEENT: Normocephalic, atraumatic. Still slightly dry mucous membranes. No cervical adenopathy. Cardiovascular: Regular rate and rhythm. No murmurs noted. Pulmonary: Clear to auscultation bilaterally. Abdomen: Soft, nontender, nondistended. Bowel sounds positive. No further CVA tenderness. Extremities: Peripheral pulses intact. No clubbing, cyanosis. Neurologic: Cranial nerves grossly intact. No focal deficits. Psychiatric: Normal mood and affect. Awake, alert, oriented x3. Skin: No new rashes or lesions identified. Some dry skin as noted above. ASSESSMENT AND PLAN: 1. Likely pyelonephritis. Patient admitted with right flank pain, leukocytosis, dysuria. Urinalysis consistent with infection. She was placed on empiric antibiotics with cefepime and has had marked improvement overnight. Urine culture still pending. Initial blood cultures no growth so far. Patient with known malignant ascites, so SBP was considered less likely but a possibility. Status post paracentesis this morning. Awaiting cell count and diff there to hopefully rule out SBP as a contributing factor. Continue empiric antibiotics and fluids for now but if blood cultures remain negative and no further issues develop then may be able to discharge home on oral antibiotics tomorrow. There is also concern for possible obstruction on initial CT, but repeat imaging with ultrasound today does not show any obstruction. May have been a stone that she has passed versus incidental finding which has resolved itself. 2. Leukocytosis. The patient with colon cancer on chemotherapy and received GCSF just prior to admission, which is the likely cause. We will monitor. 3. Thrombocytopenia likely chemo related. She just had chemo 2 to 3 days prior to admission. No signs or symptoms of active bleeding but will monitor. 4. Colon cancer with metastases to liver and lung,, known issue. Patient following with Dr. Rousseau on chemotherapy. 5. Hypothyroidism. Continue home Synthroid. 6. Seasonal allergies. Continue home Zyrtec. 7. hyperkalemia: mild, will hold home potassium pills and monitor. [facility]
[2018-12-19] MEDS: NS 1,000 ML IV SCH (14:26)
[2018-12-19] MEDS: IMODIUM PO PRN (17:33)
[2018-12-20] MEDS: IMODIUM PO PRN (01:54)
[2018-12-20 07:58] VITALS: BP 94/54
[2018-12-20] MEDS: MAXIPIME 2 GM in NS 100 ML IV SCH (09:30)
[2018-12-20] MEDS: MYLICON PO SCH (09:30)
[2018-12-20] MEDS: ZANTAC PO SCH (09:32)
[2018-12-20] MEDS: ZYRTEC PO SCH (09:32)
[2018-12-20] MEDS: SYNTHROID PO SCH (09:33)
[2018-12-20 10:09] LABS: AGAP 8; BUN 23 mg/dL (8-22); CALCIUM 7.5 mg/dL (8.8-10.2); CHLORIDE 111 mmol/L (98-107); COSMO 273; CREATININE 0.5 mg/dL (0.5-0.9); ESTIMATED GFR > 60; GLUCOSE 116 mg/dL (70-104); POTASSIUM 4.3 mmol/L (3.5-5.1); SODIUM 134 mmol/L (136-145); TCO2 15 mmol/L (25-35)
[2018-12-20 10:12] LABS: BASO# 0.06 X1000 (0.0-0.2); BASO% 0.2 % (0.0-0.8); EOS# 0.05 X1000 (0.0-0.7); EOS% 0.2 % (0.0-10.0); HEMATOCRIT 30.6 % (37.0-47.0); HEMOGLOBIN 10.2 g/dL (12.0-16.0); IMM GRAN# 1.24 X1000 (0.0-0.04); IMM GRAN% 4.1 % (0.0-0.5); LYMPH% 3.3 % (20.5-51.1); MCH 36.4 PG (27-31); MCHC 33.3 g/dL (33-37); MCV 109.3 FL (81-99); MONO# 0.22 X1000 (0.11-0.59); MONO% 0.7 % (1.7-9.3); MPV 12.1 FL (7.4-10.4); NEUT# 27.94 X1000 (1.4-6.5); NEUT% 91.5 % (42.2-75.2); PLT 46 X1000 (130-400); RDW 20.1 % (11.5-14.5); WBC 30.51 X1000 (4.8-10.8)
[2018-12-20 10:40] LABS: BANDS 4 % (0-1); LYMPHS 4 % (21-51); MONO 2 % (1-9); SEGS 90 % (42-75)
--- NOTE | 2018-12-20 15:57 | DISCHARGE SUMMARY ---
ADMISSION DATE: 12/18/2018 DISCHARGE DATE: 12/20/2018 PRIMARY CARE PHYSICIAN: Dr. Hao Mercedes. ONCOLOGIST: Dr. Rousseau. ADMISSION DIAGNOSES: 1. Likely pyelonephritis with a possible spontaneous bacterial peritonitis. 2. Ascites. 3. Leukocytosis. 4. Right moderate hydroureteronephrosis. 5. Colon cancer with liver metastases. DISCHARGE DIAGNOSES: 1. Likely pyelonephritis with urine culture showing mixed navneet. 2. Leukocytosis. 3. Colon cancer with metastasis to liver and lung. 4. Hypothyroidism. 5. Seasonal allergies. SUMMARY OF FINDINGS: This is a 58-year-old female who presented to the emergency room with complaints of right flank pain with some associated nausea and mild dysuria that began approximately 3 hours prior to arriving. She has a history of colon cancer with metastasis to the liver and had a paracentesis approximately 2 weeks ago where they drained 5 L. She continues chemotherapy. She received her Neulasta injection on the day of admission at home. Her white blood cell count was 36.23. Her amylase and lipase were normal. We did a renal CT that showed a large volume ascites. Diffuse metastatic disease seen throughout the liver parenchyma and moderate right hydroureteronephrosis but no obstructing ureteral stone identified. We placed her on IV antibiotics, IV fluids for hydration. We did an ultrasound-guided paracentesis where she had about 1 L of straw-colored fluid drained with no complications and was a successful ultrasound- guided paracentesis. We did a renal ultrasound on 12/19/2018 that showed no evidence of obstructive uropathy, hyperechoic kidneys consistent with medical renal disease. She is sitting up today. States she is feeling much better, and it is now felt that she can safely be discharged home today. DISCHARGE MEDICATIONS: Will include: 1. Zyrtec 10 mg p.o. daily. 2. Synthroid 50 mcg p.o. daily. 3. Promethazine 12.5 mg p.o. q.6 hours p.r.n. 4. Zantac 75 mg p.o. daily. 5. Gas-X 125 mg p.o. b.i.d. 6. Tylenol 650 mg p.o. q.4 hours p.r.n. 7. Erbitux 200 mg IV as ordered. 8. Prolia 60 mg subcutaneous as directed. 9. Levaquin 750 mg p.o. daily #6 with no refills. 10. Ondansetron 4 mg p.o. t.i.d. 11. Aloxatin 50 mg IV as directed. FOLLOW-UP: She will need to follow up with her oncologist as scheduled and with her primary care physician in the next 1 to 2 weeks. All discharge instructions have been reviewed with the patient, and she verbalized understanding. TIME SPENT: 35 minutes. Dictated by DANAE Baca for Ronald Cornelius MD cc: DANAE Baca MD
== END 2018-12-20 11:48 | disposition home or self-care (01) | DRG 690 ==
LOC: ED 13:25 → 4N 17:58
PROVIDERS: ATTEND Internal Medicine

== ENCOUNTER 2019-01-04 10:03 | Inpatient (IN) ==
--- NOTE | 2019-01-04 10:10 | PROVIDER DOCUMENTATION ---
HPI-General Adult - General Chief Complaint: Weakness Stated Complaint: Hypotension, ascites Time Seen by Provider: 01/04/19 10:43 Source: patient, family Allergies/Adverse Reactions: Patient Allergies Allergy/AdvReac Type Severity Reaction Status Date / Time No Known Allergies Allergy Verified 12/18/18 16:08 Home Medications: Home Medication List Medication Instructions Recorded Confirmed Last Taken Type Levothyroxine [Synthroid] 50 microgm PO DAILY 09/01/17 01/04/19 12/17/18 History Ranitidine [Zantac] 150 mg PO DAILY 09/01/17 01/04/19 12/17/18 History Ondansetron HCl 4 mg PO TID 10/22/17 01/04/19 12/17/18 History Promethazine [Phenergan] 12.5 mg PO Q6H PRN PRN 10/22/17 12/18/18 12/17/18 History Cetirizine HCl [Zyrtec] 10 mg PO DAILY 10/20/18 01/04/19 12/17/18 History Denosumab [Prolia] 60 mg SQ ORDERED 10/20/18 12/18/18 12/17/18 History Simethicone [Gas-X] 125 mg PO BID 10/20/18 12/18/18 12/17/18 History Acetaminophen [Tylenol] 650 mg PO Q4H PRN PRN tab 10/21/18 12/18/18 12/17/18 Rx Cetuximab [Erbitux] 200 mg IV ORDERED 11/06/18 12/18/18 12/17/18 History Oxaliplatin [Eloxatin] 50 mg IV ORDERED 11/06/18 12/18/18 12/17/18 History Levofloxacin [Levaquin] 750 mg PO DAILY #6 tab 12/20/18 Unknown Rx Omeprazole [Prilosec] 20 mg PO DAILY 01/04/19 01/04/19 Unknown History - History of Present Illness -Gen Adult Nature of Presenting Problems: This is a 58yo female with PMH of metastatic colon cancer who presents with CC of low blood pressure and weakness for 1 week duration. She denies fevers. She does reports currently being on chemo therapy. Location of Pain/Injury: reports: none, other (weakness) Pain Radiation: reports: no radiation Quality of Pain: reports: none Onset/Duration: reports: 1 week ago Timing: reports: still present Context/Activities at Onset: reports: light activity Associated Symptoms: reports: cough, shortness of breath (with light activity), weakness, other (dysuria and hematuria) Review of Systems - Adult - REVIEW OF SYSTEMS - ADULT Constitutional: reports: other (decreased appetite). denies: fever Eyes: reports: discharge Ears, Nose, Mouth & Throat: reports: no symptoms reported Cardiovascular: reports: no symptoms reported. denies: chest pain Respiratory: reports: cough, shortness of breath Gastrointestinal: reports: no symptoms reported. denies: abdominal pain Genitourinary: reports: hematuria Musculoskeletal: reports: no symptoms reported Integumentary: reports: no symptoms reported Neurological: reports: other (weakness) Psychiatric: reports: no symptoms reported Endocrine: reports: no symptoms reported Hematologic/Lymphatic: reports: no symptoms reported Allergic/Immunologic: reports: no symptoms reported Past History - Adult - PAST MEDICAL HISTORY-ADULT Review of Records: reports: Old Records Reviewed Major Childhood Illnesses: reports: denies history Cardiovascular: reports: denies history Respiratory: reports: denies history Gastrointestinal: reports: cancer, GERD Genitourinary: reports: denies history Musculoskeletal: reports: denies history Neurological: reports: denies history Endocrine/Immune: reports: immunosuppression, thyroid disorder Other Conditions: reports: denies history - PRIOR SURGERIES/PROCEDURES Surgical/Procedure History: reports: reviewed, not pertinent, cholecystectomy, hysterectomy - FAMILY HISTORY Family History: reviewed, not pertinent Physical Exam-General - PHYSICAL EXAM-ADULT Initial Vital Signs Reviewed: Yes - CONSTITUTIONAL General Appearance: alert, cachetic, lethargic - EYES Eyes: conjuctival exudate, scleral icterus - HEAD, EARS, NOSE, MOUTH & THROAT HENMT: normocephalic/atraumatic. negative: moist mucous membranes (dry) - RESPIRATORY Respiratory: no respiratory distress, decreased breath sounds (R>L) - CARDIOVASCULAR Cardiovascular: regular rate, rhythm, other (2+ bilateral LE edema pitting) - GASTROINTESTINAL (ABDOMEN) Abdominal Exam: soft, distended, tenderness (mild in the RLQ). negative: guarding, rebound - SKIN Integumentary: normal color, warm/dry - NEUROLOGIC Neurologic: grossly normal - PSYCHIATRIC Psych/Mental Status: normal mood/affect, normal thought content, normal thought process Progress - PLAN OF CARE/RESULTS Progress/Plan/Lab Results: Orders Category Date Time Status CHEST-2 VIEWS [RAD] Stat Exams 01/04/19 10:07 Ordered CBC WITH DIFF [HEME] Stat Lab 01/04/19 10:07 Uncollected COMPREHENSIVE METABOLIC PANEL [CHEM] Stat Lab 01/04/19 10:07 Uncollected TROPONIN T Stat Lab 01/04/19 10:07 Uncollected URINALYSIS W/POSS RFLX CULT [URINALYSIS] Stat Lab 01/04/19 10:07 Uncollected Result Diagrams: 01/04/19 10:58 01/04/19 10:58 - REASSESSMENT Reassessment #1 Status: other (Discussed case with Dr. Chadwick of Heme/Onc covering for Dr. Wood. They will see the patient inpatient and review her case. They would like her admited to the hospitalist team.) Reassessment #2 Status: other (Discussed case with hospitalist team who have accepted the patient.) - XRAY 1 XRAY Study: Chest ( Signed EXAM: CHEST-1 VIEW HISTORY: Hypotension and weakness TECHNIQUE: Single view COMPARISON: 12/18/2018 FINDINGS: Poor inspiratory effort. The heart is not enlarged. The vessels are not distended. There are no infiltrates. No effusion identified. No change in the right sided portacatheter. No pneumothorax. IMPRESSION: Stable exam. Electronically signed by Juanjo Castañeda 01/04/2019 11:27 AM 01/04/191126 Interpreting Physician: Juanjo Castañeda MD Dictated Date/Time: 01/04/19 1127 cc: Wei Wren MD; Hao Mercedes MD) Departure - Departure Date of Disposition Decision: 01/04/19 Time of Disposition Decision: 13:31 DIAGNOSIS: Weakness, Metastatic colon cancer in female Hypothyroid Qualifiers: Hypothyroidism type: unspecified Qualified Code(s): E03.9 - Hypothyroidism, unspecified Hypotension Qualifiers: Hypotension type: other hypotension type Qualified Code(s): I95.89 - Other hypotension Disposition: ADMITTED INPATIENT 09 Certified Medical Emergency: Emergent Condition: Serious Referrals and Follow-Ups: Hao Mercedes MD [Primary Care Provider] - - Critical Care Note This patient required my direct & personal management of CC.: No Attestation - Physician/ YOSELIN Attestation Patient care was provided by Advanced Practice Provider:: No The physician spent face to face time with patient:: Yes Advanced Practice Provider documentation review:: Supervising physician onsite and consulted in the evaluation and care of this patient. The physician did have a face to face encounter with the patient.
[2019-01-04] MEDS ORDERED: NS 500 ML IV ONE (10:40)
[2019-01-04 11:13] LABS: BASO# 0.07 X1000 (0.0-0.2); BASO% 0.5 % (0.0-0.8); EOS# 0.12 X1000 (0.0-0.7); EOS% 0.9 % (0.0-10.0); HEMATOCRIT 30.8 % (37.0-47.0); HEMOGLOBIN 10.8 g/dL (12.0-16.0); IMM GRAN# 0.11 X1000 (0.0-0.04); IMM GRAN% 0.8 % (0.0-0.5); LYMPH# 1.02 X1000 (1.2-3.4); LYMPH% 7.7 % (20.5-51.1); MCH 37.6 PG (27-31); MCHC 35.1 g/dL (33-37); MCV 107.3 FL (81-99); MONO# 0.93 X1000 (0.11-0.59); MONO% 7.1 % (1.7-9.3); MPV 12.4 FL (7.4-10.4); NEUT# 10.94 X1000 (1.4-6.5); PLT 47 X1000 (130-400); RBC 2.87 XMIL (4.2-5.4); WBC 13.19 X1000 (4.8-10.8)
[2019-01-04 11:29] LABS: ALB/GLOB RATIO 0.9; ALBUMIN 2.2 g/dL (3.5-5.0); CREATININE 1.2 mg/dL (0.5-0.9); TOTAL BILIRUBIN 4.33 mg/dL (0.20-1.00); TOTAL PROTEIN 4.6 g/dL (6.3-8.3)
--- NOTE | 2019-01-04 11:30 | Diag Imaging Result Doc PS360 ---
EXAM: CHEST-1 VIEW HISTORY: Hypotension and weakness TECHNIQUE: Single view COMPARISON: 12/18/2018 FINDINGS: Poor inspiratory effort. The heart is not enlarged. The vessels are not distended. There are no infiltrates. No effusion identified. No change in the right sided portacatheter. No pneumothorax. IMPRESSION: Stable exam. Electronically signed by Juanjo Castañeda 01/04/2019 11:27 AM
[2019-01-04 11:38] LABS: INR 1.66
[2019-01-04 11:39] LABS: PTT 43.1 Seconds (22.3-41.8)
[2019-01-04 11:46] LABS: BANDS 8 % (0-1); LYMPHS 14 % (21-51); MONO 2 % (1-9); SEGS 76 % (42-75)
[2019-01-04 11:47] LABS: ANISOCYTOSIS 1+
[2019-01-04 12:05] LABS: BILIRUBIN URINE NEGATIVE (NEGATIVE); BLOOD URINE TRACE (NEGATIVE); COLOR YELLOW; GLUCOSE URINE NEGATIVE (NEGATIVE); KETONE URINE NEGATIVE (NEGATIVE); LEUKOCYTES URINE NEGATIVE (NEGATIVE); NITRITE URINE NEGATIVE (NEGATIVE); PROTEIN URINE TRACE mg/dL (NEGATIVE); SP GRAVITY URINE 1.015; TURBIDITY URINE CLEAR (CLEAR); URINE SOURCE CLEAN CATCH; UROBILINOGEN URINE NORMAL (NORMAL)
[2019-01-04 12:07] LABS: UR EPITHELIAL CELLS <10 /HPF (<10); URINE BACTERIA NEGATIVE /HPF; URINE WBC <10 /HPF (<10)
[2019-01-04] MEDS ORDERED: BLISTEX MEDICATED BERRY LIP BALM TOP ONE (12:47)
--- NOTE | 2019-01-04 13:42 | EKG Report ---
Test Performed on : 01/04/2019 10:21:07 AM Test Reason : HYPOTENSION Blood Pressure : / mmHG Vent. Rate : 080 BPM Atrial Rate : 080 BPM P-R Int : 150 ms QRS Dur : 084 ms QT Int : 420 ms P-R-T Axes : 071 024 -16 degrees QTc Int : 484 ms Normal sinus rhythm. ST & T wave abnormality, consider anterolateral ischemia Abnormal ECG When compared with ECG of 18-DEC-2018 18:12, ST now depressed in Anterior leads Nonspecific T wave abnormality, worse in Inferior leads T wave inversion now evident in Anterior leads Unconfirmed Result
[2019-01-04] MEDS ORDERED: NS 1,000 ML IV ONE ×2 (14:06→15:41)
[2019-01-04] MEDS: POTASSIUM CHLORIDE 20 MEQ/SWI 20 MEQ/100 ML IVPB IV SCH ×2 (14:20→16:56)
[2019-01-04 14:47] LABS: URINE SOURCE CLEAN CATCH
[2019-01-04 14:52] LABS: BILIRUBIN URINE NEGATIVE (NEGATIVE); BLOOD URINE SMALL (NEGATIVE); COLOR YELLOW; GLUCOSE URINE NEGATIVE (NEGATIVE); KETONE URINE NEGATIVE (NEGATIVE); LEUKOCYTES URINE NEGATIVE (NEGATIVE); NITRITE URINE NEGATIVE (NEGATIVE); PROTEIN URINE 30 mg/dL (NEGATIVE); SP GRAVITY URINE 1.016; TURBIDITY URINE CLEAR (CLEAR); UROBILINOGEN URINE NORMAL (NORMAL)
[2019-01-04 15:06] LABS: UR EPITHELIAL CELLS <10 /HPF (<10); URINE BACTERIA NEGATIVE /HPF; URINE WBC <10 /HPF (<10)
[2019-01-04 15:08] LABS: URINE CASTS NONE SEEN; URINE CRYSTALS NONE SEEN; URINE SMALL ROUND CELLS NONE SEEN; URINE YEAST NONE SEEN
[2019-01-04] MEDS: ZOSYN 3.375 GM in NS 50 ML IV SCH ×2 (15:45→21:24)
[2019-01-04] MEDS: LEVOPHED 8 MG in D5 1/2 NS 250 ML IV SCH (16:50)
[2019-01-04] MEDS: SYNTHROID PO SCH ×2 (16:56→17:00)
[2019-01-04] MEDS: NS 1,000 ML IV SCH ×2 (16:56→23:59)
--- NOTE | 2019-01-04 16:57 | HISTORY AND PHYSICAL ---
ADDENDUM REPORT Addendum to history and physical dictated by nurse practitioner and I agree with most of the history, physical, assessment, and plan. 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 Her last chemotherapy was likely 1 week ago. She went to see Dr. Rousseau in his office and was found to be extremely hypotensive so was sent to over to the emergency room. In the emergency room on arrival, her blood pressure was 70/40. She was started resuscitation with intravenous fluids and hospitalist team was consulted for further management. At the time of my evaluation, multiple family members are present and they report that she has not been able to eat almost anything by mouth since last couple of weeks. She has had occasional intermittent diarrhea with watery stools. She is denying any fever, chills, nausea, or vomiting. She denying any cough. She denies any abdominal cramps. VITAL SIGNS: Temperature 97.5 degrees, pulse 73, respiratory 22, currently blood pressure 70/40. She is saturating 98% on room air. PHYSICAL EXAMINATION: GENERAL: Not in any acute distress. Oral cavity is moist. LUNGS: Air entry bilaterally equal. No wheeze, rhonchi, crackles. CARDIOVASCULAR: S1, S2 normal. No murmur, rub, or gallop. ABDOMEN: Distended, soft, nontender, except occasional right upper quadrant tenderness with dullness to percussion bilateral flanks. The tenderness was not consistent. She has hyperactive bowel sounds. She has bilateral lower extremity edema. LABORATORY DATA: Suggestive of mild leukocytosis, anemia, thrombocytopenia, hyponatremia, hypokalemia, low carbon dioxide, acute kidney injury. Chronically elevated liver function tests. Negative troponins. Hypoalbuminemia. ASSESSMENT AND PLAN: 1. Shock, most likely hypovolemic. Other differential includes septic. She does have diarrhea and on chest x-ray she does have a dilated loop of bowel in right upper quadrant, though her lactate is normal. The chances of toxic megacolon or severe gastroenteritis is low considering no leucocytosis, no fever and lack of significant abdominal tenderness. I will start her on intravenous Zosyn. Follow up with blood culture, aggressively resuscitate her with at least 3 L of intravenous fluids boluses and start her on continuous IV fluids and norepinephrine. I will also get echocardiogram. Her cortisol level was normal. 2. Hyponatremia, hypokalemia, acute kidney injury due to profound volume depletion, currently repleted. I will follow up with daily BMP. 3. Hypothyroidism with elevated TSH. I will start her on higher dose of levothyroxine and follow up with TSH a few days later to make sure it is improving. Her compliance with Synthroid is currently questionable. 4. History of metastatic colon adenocarcinoma with lung and liver metastases. The palliative care team would be consulted. She does have chronically elevated transaminitis because of that. Oncology would also be consulted. She does have thrombocytopenia. She has been on oxaliplatin and cetuximab treatment. 5. Disposition: The patient's condition is critical. Plan of care discussed with the patient and multiple family members including . Her current code status is full. She states that if need arises to give her chest compression and intubation, it is okay to do that as long as there is a possibility she could survive through that episode. I will have continued goals of care discussion. More than 30 minutes of critical care time was spent taking care of this patient. cc: Flash Roy MD [facility]
--- NOTE | 2019-01-04 18:08 | Diag Imaging Result Doc PS360 ---
CT ABDOMEN/PELVIS W/O CONTRAST - 01/04/2019 INDICATION: Evaluate for Colitis. COMPARISON: 12/25/2018 FINDINGS: There is a large amount of ascites. The liver is extremely atrophic. There are multiple calcified liver masses. No bowel obstruction or inflammation. There is rather severe constipation. Lester catheter in the urinary bladder. Rectum is normal. There is severe body wall edema. IMPRESSION: Severe constipation. Ascites. Body wall edema. Advanced hepatic atrophy. This exam was performed using automated exposure control, adjustment of mA or kV according to patient size, and/or use of iterative reconstruction technique Electronically signed by Rupert Barron 01/04/2019 6:05 PM
--- NOTE | 2019-01-04 18:41 | HISTORY AND PHYSICAL ---
PRIMARY CARE PHYSICIAN: Dr. Foreign Rousseau CHIEF COMPLAINT: Weakness and hypotension. HISTORY OF PRESENT ILLNESS: Ms. Cornelius is a 58-year-old female who presents to the hospital today with complaints of weakness and hypotension. Ms. Cornelius us a very unfortunate female with past medical history of metastatic colon cancer with metastasis to the lung and liver. She has been receiving chemotherapy treatments by Dr. Rousseau. She was recently in the hospital in November where she was believed to have pyelonephritis at that time. She also had some ascites. She did have a paracentesis at that time or sometime prior to that. Since then patient has been very weak. She has been not eating and not drinking. is at bedside. He states that he can barely get her to eat or drink anything. The patient's blood pressure on the monitor is in 60s and 70s systolic. The patient is able to open her eyes and answer all my questions appropriately. She is oriented x4. She is able to follow all commands and move all extremities. However, she is severely weak. She does have 3+ pitting edema noted to the bilateral lower extremities. She is noted to have dry skin all over her face and her body. I even noticed some flaking layers of skin all over her face. Abdomen is mildly swollen and ascitic. The patient is not complaining of any pain at this time. She is not in any distress at this time. She was given a L of bolus in the ER and this did not seem to help her blood pressure. Spouse states that her blood pressure usually does run low at home and sometimes it even runs into the 50s and cystic 60 systolic at home. Spouse states that she has been receiving a new chemotherapy treatment by Dr. Rousseau and she has had 4 treatments of that treatment. He does not know the name of that treatment. The patient does have chronic diarrhea. She is not complaining of any pain when she urinates. PAST MEDICAL HISTORY: Colon cancer, metastasis to the liver and lung, GERD, hypothyroidism. PAST SURGICAL HISTORY: Cholecystectomy, hysterectomy, appendectomy, eye surgery and tonsillectomy. FAMILY HISTORY: Showed a father that had cirrhosis of the liver. Her mom has lymphoma, heart disease and hypertension. SOCIAL HISTORY: She currently lives with family. Denies any tobacco, alcohol, or illicit drug abuse. ALLERGIES: No known drug allergies. HOME MEDICATIONS: 1. Zantac 150 mg p.o. daily. 2. Synthroid 50 mcg p.o. daily. 3. Prilosec 20 mg p.o. daily. 4. Zyrtec 10 mg p.o. daily. 5. Florinef 2.1 mg 2 tablets p.o. b.i.d. 6. Fludrocortisone acetate 0.1 mg 1 tablet p.o. daily. 7. Zofran 4 mg p.o. q.6 hours p.r.n. 8. Spironolactone 25 mg p.o. daily. 9. Dronabinol 5 mg p.o. b.i.d. 10. Diphenoxylate-atropine 1 p.o. t.i.d. p.r.n. LABS AND DIAGNOSTICS: White blood cell count 13.9, red blood cell count 2.87, hemoglobin 10.8, hematocrit 30.8, MCV 107, MCH 37.6, MCHC 35.1, RDW 23.0, platelet count 47,000. PT 20, INR 1.6, PTT 43.1. Sodium 134, potassium 3.0, chloride 105, carbon dioxide 16, anion gap 13, BUN 28, creatinine 1.2, estimated GFR is 46, glucose 104, calcium 8, magnesium 1.8. Total bilirubin is 4.33, AST is 94, ALT is 48, alkaline phosphatase is 511, creatine kinase is 38. Troponin is less than 0.01. ProBNP is 256. Albumin 2.2. Plasma lactate 0.9. TSH is 34.71, cortisols 14.1. Urinalysis pH 6.0, urine specific gravity is 1.016, protein is 30, small amount of blood, white blood cell count is less than 10, red blood cell count is 10 to 20, negative for bacteria, leukocytes and nitrites. Chest x-ray is negative. REVIEW OF SYSTEMS: A 12 point review of systems has been obtained and all are negative except what is stated above in the HPI. The patient does have a small wound noted to her coccyx area. It is a small crack. Patient does complain of a little pain noted to the coccyx area. This is the only pertinent thing to her review of systems and what is stated above. PHYSICAL EXAMINATION: VITAL SIGNS: Temperature 97.6 degrees, pulse rate 70, respiratory rate 13, blood pressure 77/47, O2 saturation 99% on room air. Weight 128 pounds, height 5 feet 4 inches. GENERAL: This is a 58-year-old female. She is in no acute distress at the present time. She is a very frail, malnourished female. HEENT: Atraumatic, normocephalic. Pupils are equal, round, reactive to light. Mucous membranes are dry. NECK: Supple. No lymphadenopathy. Trachea is midline. No JVD. No thyromegaly. No bruits. CARDIOVASCULAR: Regular rate and rhythm. No murmurs, gallops, or rubs appreciated. RESPIRATORY: Lung sounds are clear with equal chest excursion. There is no accessory muscle usage. GASTROINTESTINAL: Abdomen is distended, it is firm and tender. Active to palpation. There is ascites noted. Bowel sounds are hypoactive due to the ascites. NEUROLOGIC: Cranial nerves 2-12 are intact. The patient is awake, alert, and oriented. She is able to answer all my questions appropriately and she is able to follow all my commands. She is able to move all extremities well. MUSCULOSKELETAL: Full distal strength noted. There are no abnormalities. There are no deformities. EXTREMITIES: There is no cyanosis, no clubbing. There is dependent edema noted. It is 3+ pitting to bilateral lower extremities. DP and PT pulses are present and palpable. SKIN: Warm and dry. There is a very small pressure wound noted to the coccyx. It is a stage II. It does not appear to be infected and is not draining anything. There are no other wounds noted. The patient is not diaphoretic. There are no bruises. The patient has poor turgor. ASSESSMENT AND PLAN: 1. Dehydration. We have admitted this patient to the ICU unit. She was given a 500 mL bolus of IV fluid in the ER. I have followed the up with 2 more L boluses of normal saline. She is going to get normal saline 150 mL an hour. We have ordered a Levophed drip for her. We are going to try to get her systolic pressure greater than 90. The patient is not tolerating p.o. She states that she just does not feel like eating. She is very malnourished. She does have stage IV colon cancer with metastasis to the lung and the liver. She has been seen by Dr. Rousseau. She is receiving chemotherapy. I have ordered her some Magic Mouthwash to see if this will help her keep some p.o. fluids down. If she is able to tolerate that, then we will order her more food. I have ordered her clear liquids. I have consulted Dr. Rousseau. I have also consulted Palliative Care to see if they can assist us with keeping her comfortable while she is in the hospital and help us with goals of care. 2. Acute kidney injury. The patient has a creatinine of 1.2. Last time she was in the hospital it was 0.5. Suspect this is from her dehydration. We are going to rehydrate her with IV fluids and see if we can correct this. 3. Hypokalemia. Her potassium level is 3.0. She was given some potassium in the ER. We are going to recheck this in the morning. 4. Leukocytosis. The patient does have elevated white blood cell count of 13. Her lactates are normal. She does not have any obvious source of infection at this time. We are going to go ahead and start her on some Zosyn to cover her for her elevated white blood cell count. We are going to get some stool cultures and a stool for Clostridium difficile because she has had some diarrhea at home. We are also going to get a CT of the abdomen and pelvis to rule out anything obvious with her abdomen. 5. Hypothyroidism. The patient had elevated TSH level. We are going to start her back on her Synthroid. 6. Colon cancer with metastasis to the liver and possible lung. We are seeing some elevations in the liver enzymes when I look back at the prior numbers from the past admissions. There is not much elevation since past admission. Actually some of the numbers actually look a little bit better so we will just keep a close eye on these numbers and will also do daily chest x- rays and daily labs and we have also consulted Dr. Rousseau to keep an eye on this patient. 7. Gastrointestinal prophylaxis. Start this patient on Prilosec daily. 8. Deep venous thrombosis prophylaxis. I placed sequential compression devices on this patient. PLAN: Our plan is we have admitted this patient to the ICU unit. We are giving her IV fluid boluses. We are also going to give her IV fluids at 150 mL an hour. We will start her on a Levophed drip if her blood pressure does not stabilize with IV fluid hydration. We have consulted Dr. Rousseau for her cancer. We are going to repeat labs in the morning. Chest x-ray and we are going to restart some of her home medications. We are going to start her on a clear liquid diet until she is able to tolerate more p.o. We will consult Palliative Care to help with goals of care and keep her comfortable while she is in the hospital. We are going to start her on some antibiotics while she is in the hospital. Get a CT scan of the abdomen, check a stool for Clostridium and stool culture. All other further treatment pending hospital course and lab data. Dictated by DANAE Jefferson for Flash Roy MD cc: MD Foreign Ratliff MD Jeremy Stidham I agree with most components of history, physical, assessment and plan. A separate addendum has been dictated. JANNETTED
--- NOTE | 2019-01-04 19:35 | ECHO REPORT ---
ORDER DATE: 01/04/2019 INTERPRETING PHYSICIAN: Dr. Mark Fischer. REQUESTING PHYSICIAN: Flash Roy MD. CLINICAL INDICATIONS: A 58-year-old female with hypotension. M-MODE MEASUREMENTS: Left ventricle end diastole: 4.3 cm. Left ventricle end systole: 2.7 cm. Posterior wall: 0.7 cm. Interventricular septum: 0.6 cm. Left atrium: 3.3 cm. Aortic root: 2.6 cm. SUMMARY OF 2-DIMENSIONAL IMAGIN. The left ventricular function is normal. Ejection fraction visually estimated at 55%-60%. No definite wall motion abnormality is noted. This study was very difficult. 2. Right-sided chambers appear to be normal. 3. The left atrium is grossly normal. 4. There is no pericardial effusion. 5. Aortic valve appears to be grossly normal. Color flow mapping unremarkable. 6. The pulmonary valve looks grossly normal. Color flow mapping unremarkable. 7. The tricuspid valve is grossly unremarkable. Pulmonary pressure is estimated at 27-32 mmHg. 8. The mitral valve looks grossly normal. Color flow mapping unremarkable. 9. Pulse wave Doppler of mitral inflow shows reversal of E/A ratio. 10.Tissue Doppler of septal and lateral mitral annulus averages 7 cm per second. 11.There is no evidence of left ventricular diastolic dysfunction. 12.There is no evidence of masses or thrombus. Clinical correlation is recommended. cc: MD Flash Zendejas MD
[2019-01-05] MEDS: NS 1,000 ML IV SCH ×3 (01:58→07:55)
[2019-01-05] MEDS: ZOSYN 3.375 GM in NS 50 ML IV SCH ×3 (04:19→13:59)
[2019-01-05] MEDS: LEVOPHED 8 MG in D5 1/2 NS 250 ML IV SCH ×2 (05:55→21:42)
[2019-01-05 06:33] LABS: BASO# 0.08 X1000 (0.0-0.2); BASO% 0.4 % (0.0-0.8); EOS# 0.24 X1000 (0.0-0.7); EOS% 1.3 % (0.0-10.0); HEMATOCRIT 30.4 % (37.0-47.0); HEMOGLOBIN 10.5 g/dL (12.0-16.0); IMM GRAN# 0.13 X1000 (0.0-0.04); IMM GRAN% 0.7 % (0.0-0.5); LYMPH# 1.87 X1000 (1.2-3.4); LYMPH% 10.2 % (20.5-51.1); MCH 37.1 PG (27-31); MCHC 34.5 g/dL (33-37); MCV 107.4 FL (81-99); MONO% 9.8 % (1.7-9.3); MPV 11.6 FL (7.4-10.4); NEUT# 14.25 X1000 (1.4-6.5); NEUT% 77.6 % (42.2-75.2); PLT 86 X1000 (130-400); RBC 2.83 XMIL (4.2-5.4); RDW 22.8 % (11.5-14.5); WBC 18.37 X1000 (4.8-10.8)
[2019-01-05 06:43] LABS: ESTIMATED GFR > 60
[2019-01-05 06:46] LABS: AGAP 13; BUN 25 mg/dL (8-22); CALCIUM 7.1 mg/dL (8.8-10.2); CHLORIDE 110 mmol/L (98-107); COSMO 279; CREATININE 0.9 mg/dL (0.5-0.9); GLUCOSE 138 mg/dL (70-104); MAGNESIUM 1.6 mg/dL (1.5-2.7); PHOSPHORUS 2.9 mg/dL (2.7-4.5); POTASSIUM 2.8 mmol/L (3.5-5.1); SODIUM 136 mmol/L (136-145); TCO2 13 mmol/L (25-35)
--- NOTE | 2019-01-05 07:10 | Diag Imaging Result Doc PS360 ---
EXAM: CHEST-PORTABLE 01/05/2019 HISTORY: dyspnea TECHNIQUE: AP portable at 0526 COMMENT: The inspiration is suboptimal. Compared to the previous study of 01/04/2019 there has been no appreciable change. There is still some minimal platelike atelectasis at the left base. IMPRESSION: Poor inspiration. Electronically signed by Jacob Day 01/05/2019 7:08 AM
[2019-01-05] MEDS ORDERED: MAGNESIUM SULFATE 2 GM/S.W.I. 2 GM/50 ML IVPB IV ONE (07:45)
[2019-01-05] MEDS: SENOKOT PO SCH ×2 (08:26→20:09)
[2019-01-05] MEDS: PRILOSEC PO SCH (08:26)
[2019-01-05] MEDS: SYNTHROID PO SCH (08:26)
[2019-01-05] MEDS ORDERED: POTASSIUM CHLORIDE 60 MEQ in NS 500 ML IV ONE (08:30)
[2019-01-05] MEDS ORDERED: MIRALAX PO SCH (09:00)
[2019-01-05] MEDS ORDERED: SYNTHROID PO SCH (09:00)
[2019-01-05] MEDS ORDERED: LASIX IV ONE (13:35)
[2019-01-05] MEDS: ZYVOX 600 MG/D5W 600 MG/300 ML IVPB IV SCH (18:41)
[2019-01-05] MEDS: MAXIPIME 1 GM in NS 50 ML IV SCH (20:08)
[2019-01-05] MEDS: DULCOLAX PR SCH (20:09)
[2019-01-05] MEDS: MIRALAX PO SCH (20:09)
[2019-01-05] MEDS: ALBUMIN 25% IV SCH (20:10)
[2019-01-05] MEDS ORDERED: FLORINEF PO SCH (21:00)
--- NOTE | 2019-01-06 04:01 | PROGRESS NOTE ---
DATE: 01/05/2019 SUBJECTIVE: The patient is sitting up in bed. She complains of sores in her mouth from her recent chemotherapy. She also complains of swelling in her legs. OBJECTIVE: Vital Signs: Temperature 97 degrees, blood pressure 97/55, heart rate 102, respirations 17, O2 saturations 100% on room air, intake 4.2 L, output 445. General: This is a chronically ill-appearing, elderly female lying in bed in no acute distress. Heart: S1, S2. Normal. Tachycardic. Lungs: Equal air entry bilaterally. No wheezing. No rales. No rhonchi. Abdomen: Positive bowel sounds. Soft, nontender, nondistended. Extremities: 3+ edema bilaterally. Neurologic: The patient is alert and oriented x4. LABS: White blood cell count 18, hemoglobin 10, hematocrit 30, platelets 86,000. Sodium 136, potassium 2.8, chloride 110, CO2 13, BUN 25, creatinine 0.9, glucose 138, calcium 7.1, magnesium 1.6, phosphorus 2.9. Cortisol level 12. Chest x-ray shows poor inspiration. ASSESSMENT AND PLAN: 1. Septic shock. The source of the patient's possible infection was unknown at this time. Will await the results of the blood cultures. Will try to wean the patient off the Levophed drip. Continue with broad-spectrum antibiotic therapy. 2. Metastatic colon cancer. Aware. 3. Hypokalemia. Will replace the patient's potassium. 4. Hypomagnesemia. We will replace the patient's magnesium. 5. Severe constipation. We will start the patient on laxative therapy. 6. Thrombocytopenia. Improved. 7. Leukocytosis. Will adjust the patient's antibiotic regimen. 8. Metabolic acidosis. Will continue to monitor closely for improvement. 9. Gastrointestinal prophylaxis. Continue on omeprazole. cc: Gisel Bolaños MD
[2019-01-06 04:17] LABS: ALLEN TEST YES; BE -10.6 mmoll (-3.0-3.0); BLOOD TYPE ARTERIAL; HCO3-(ACT) 16.7 mmoll (20.0-26.0); METHB 0.7 % (0.0-1.5); O2(CT) 12.4 mL/dL (15.0-23.0); O2HB 97.8 % (95.0-99.0); PO2(98.6) 193 mmHg (60-100); SAMPLE BLOOD; SAO2 100.1 % (95.0-100.0); THB 8.7 g/dL (11.5-17.4); pH(98.6) 7.42 (7.35-7.45)
[2019-01-06 04:20] LABS: MODALITY ROOM AIR; PCO2(98.6) 19 mmHg (35-45)
[2019-01-06 04:34] LABS: HEMATOCRIT 23.2 % (37.0-47.0); HEMOGLOBIN 8.3 g/dL (12.0-16.0); MCH 39.2 PG (27-31); MCHC 35.8 g/dL (33-37); MCV 109.4 FL (81-99); MPV 10.5 FL (7.4-10.4); RBC 2.12 XMIL (4.2-5.4); RDW 22.9 % (11.5-14.5); WBC 10.29 X1000 (4.8-10.8)
[2019-01-06] MEDS: MAXIPIME 1 GM in NS 50 ML IV SCH ×2 (04:56→16:08)
[2019-01-06 05:00] LABS: ALBUMIN 3.1 g/dL (3.5-5.0); CALCIUM 7.8 mg/dL (8.8-10.2); CREATININE 1.2 mg/dL (0.5-0.9); PHOSPHORUS 2.9 mg/dL (2.7-4.5)
[2019-01-06 05:27] LABS: ALB/GLOB RATIO 1.5; DIRECT BILIRUBIN 2.1 mg/dL (0.00-0.20); TOTAL BILIRUBIN 5.02 mg/dL (0.20-1.00)
[2019-01-06] MEDS: ZYVOX 600 MG/D5W 600 MG/300 ML IVPB IV SCH ×2 (05:32→17:30)
[2019-01-06] MEDS ORDERED: POTASSIUM CHLORIDE 60 MEQ in NS 500 ML IV ONE (05:56)
[2019-01-06] MEDS: MIRALAX PO SCH ×2 (08:07→19:59)
[2019-01-06] MEDS: SODIUM BICARBONATE PO SCH ×2 (08:09→19:59)
[2019-01-06] MEDS: SENOKOT PO SCH ×2 (08:09→19:59)
[2019-01-06] MEDS: PRILOSEC PO SCH (08:09)
[2019-01-06] MEDS: SYNTHROID PO SCH (08:09)
[2019-01-06] MEDS: FLORINEF PO SCH (08:09)
[2019-01-06 08:11] LABS: INR 2.18; PROTIME 24.8 Seconds (11.0-16.0)
[2019-01-06] MEDS: ALBUMIN 25% IV SCH (08:12)
[2019-01-06] MEDS ORDERED: VITAMIN K 10 MG in NS 50 ML IV ONE (08:19)
[2019-01-06] MEDS: NORCO-5 PO PRN ×2 (08:30→12:01)
[2019-01-06] MEDS ORDERED: LASIX IV ONE (09:32)
[2019-01-06] MEDS: MBX SOLUTION MT PRN (10:57)
[2019-01-06] MEDS: ZOFRAN IV PRN (10:59)
[2019-01-06] MEDS: LEVOPHED 8 MG in D5 1/2 NS 250 ML IV SCH (10:59)
--- NOTE | 2019-01-06 14:35 | HEMO/ONC CONSULTATION ---
DATE: 01/05/2019 ADMITTING PHYSICIAN: Dr. Roy. REQUESTING PHYSICIAN: Dr. Roy. We appreciate this consult. CHIEF COMPLAINT: Metastatic colon adenocarcinoma. HISTORY OF PRESENT ILLNESS: Ms. Thi Cornelius is a pleasant, 58-year-old, female, well known to Dr. Rousseau with a history of stage IV metastatic colorectal adenocarcinoma involving the liver and lungs. The patient presented to [facility] secondary to profound weakness and an inability to keep anything down by mouth for several days. Upon examination, the patient was found to be profoundly lethargic and dehydrated. Hemoglobin was 10.7, white blood cell count 13,000, platelet count 46,000. Creatinine was 1.0, sodium 131, and potassium 2.6. Bilirubin had increased to 4.2, with an alkaline phosphatase of 433. Additionally, the patient was extremely hypotensive with a systolic blood pressure 67. 911 was called, and the patient was sent to [facility] Emergency Department for evaluation and admission. Upon evaluation in the emergency department, she was found to be in shock, questionably hypovolemic versus septic. Chest x-ray revealed dilated loop of bowel in the right upper quadrant. The patient was placed on IV Zosyn, blood cultures were obtained, and aggressive fluid resuscitation was begun. The patient was admitted to ICU for hypovolemic shock, questionably with sepsis. PAST MEDICAL HISTORY: 1. Colon cancer with metastasis to the liver and lung. 2. Gastroesophageal reflux disease. 3. Hypothyroidism. PAST SURGICAL HISTORY: 1. Cholecystectomy. 2. Hysterectomy. 3. Appendectomy. 4. Eye surgery. 5. Tonsillectomy. FAMILY HISTORY: Significant for lymphoma in the patient's mother. SOCIAL HISTORY: The patient does not use tobacco, alcohol, or illicit drugs at this time. MEDICATIONS ON ADMISSION: 1. Zantac. 2. Synthroid. 3. Prilosec. 4. Zyrtec. 5. Florinef. 6. Fludrocortisone. 7. Zofran. 8. Spironolactone. 9. Dronabinol. 10. Diphenoxylate atropine. ALLERGIES: The patient has no known drug allergies. REVIEW OF SYSTEMS: A 14-point review of systems was obtained and is negative, except for as mentioned in the HPI. PHYSICAL EXAMINATION: General: Ms. Cornelius is a 58-year-old female who appears volume contracted and is lying supine in bed, lethargic, and minimally responsive at this time. Vital Signs: Temperature 98.1, blood pressure 112/59, heart rate 90, respirations 14, O2 saturation 100% on room air. HEENT: Normocephalic, atraumatic. Mucous membranes are pale and dry. Sclerae is icteric. Extraocular movements intact. Neck: Supple. Lungs: Clear to auscultation bilaterally. Chest expansion equal bilaterally. CV: S1, S2 is heard without murmur, rub, or gallop. Abdomen: Soft with no rebound or guarding noted. Extremities: Without clubbing or cyanosis. The patient does have 1+ bilateral lower extremity edema. Dermatologic: No rashes, bruises, or lesions. The patient is jaundiced. Neurologic: The patient is somnolent. She is oriented x3, and has no overt focal deficits. LABORATORY DATA: Hemoglobin is 10.5, hematocrit 30.4, white blood cell count 18.37, platelets are 86,000. Sodium 136, potassium 2.8, chloride 110, CO2 is 13, BUN 25, creatinine 0.9, glucose 138, calcium 7.1. Phosphorus 2.9, magnesium 1.6. Cortisol 12.6. Bilirubin 4.33, AST 94, ALT 48, alkaline phosphatase is 511. ASSESSMENT AND PLAN: 1. Metastatic colorectal adenocarcinoma. The patient is currently on FOLFOX and Erbitux, which is being held secondary to mucositis and thrombocytopenia. Next treatment will include a dose reduction. Recent CT scan showed stable to improved disease, except for persistent ascites. CEA has continued to decline with treatment. 2. Dehydration. The patient has been unable to take in anything by mouth for the last several days. She is quite malnourished at this time. Volume resuscitation has begun with normal saline. 3. Hypotension secondary to #1 versus sepsis. The patient is currently on Levophed. Volume is being replaced with normal saline intravenously. Additionally, the patient is on antibiotics at this time. Blood cultures are pending. 4. Acute kidney injury, likely secondary to #1. Will continue to monitor. Again, the patient is on intravenous normal saline. 5. Hypokalemia. The patient received potassium in the emergency department. We will continue to monitor. 6. Leukocytosis with an elevated white blood cell count of 13,000 and normal lactate. The patient is on a broad-spectrum antibiotic at this time. We will continue to monitor white blood cell count. 7. Hypothyroidism. The patient is currently on Synthroid. TSH is pending. 8. We will follow along with you and make further recommendations pending outcomes. The above reflects the history, exam, assessment, and plan of Dr. Chadwick. Dictated by DANAE Magallanes for Jena Chadwick MD cc: DANAE Magallanes MD I have seen and examined the patient and the above note reflects my H&P, assessment and plan. Jena Chadwick MD [facility]enneth
--- NOTE | 2019-01-06 17:02 | Diag Imaging Result Doc PS360 ---
EXAM: US ABDOMEN-COMPLETE 01/06/2019 HISTORY: elevated liver function TECHNIQUE: Abdominal ultrasound COMMENT: There is a large amount of ascites. The kidneys are hyperechoic. The spleen is enlarged measuring over 13.6 cm. There is no evidence of hydronephrosis. The liver is hyperechoic and somewhat shrunken in appearance. The gallbladder has apparently been previously resected. There are multiple calcified masses within the liver which were also demonstrated the time of the previous CT of 01/04/2019. The vena cava, pancreas, and aorta are not well demonstrated. IMPRESSION: Calcified masses in the liver most likely representing treated metastases. Massive ascites. The possibility of medical renal disease is suggested. Electronically signed by Jacob Day 01/06/2019 5:00 PM
[2019-01-06 19:26] LABS: INR 2.11; PROTIME 24.1 Seconds (11.0-16.0)
[2019-01-06] MEDS: DULCOLAX PR SCH (19:59)
--- NOTE | 2019-01-06 20:05 | PROGRESS NOTE ---
DATE: 01/06/2019 SUBJECTIVE: The patient is resting comfortably. She complains of sores in her mouth. Also, she states that her appetite is very poor. OBJECTIVE: Vital Signs: Temperature 98.2 degrees blood pressure 108/71, heart rate 79, respirations 12, O2 saturations 100% on room air. Intake 3.2 L, output 1.2 L. General: This is a hidqwnwmzox-vhp-dmosscufx elderly female lying in bed in no acute distress. Head: Normocephalic atraumatic. Heart: S1, S2 normal. Regular rate and rhythm. Lungs: Equal air entry bilaterally. No wheezing. No rales. Abdomen: Positive bowel sounds. Soft. Positive for ascites. Extremities: 3+ edema bilaterally. Neurologic: The patient is alert and oriented x4. LABS: White blood cell count 10, hemoglobin 8.3, hematocrit 23, platelets 37, INR 2.1. Sodium 129, potassium 3.8, chloride 106, CO2 of 13, BUN 22, creatinine 1.2, glucose 125. Total bilirubin 5, direct bilirubin 2, albumin 3.1. Abdominal ultrasound shows massive ascites with multiple calcified masses within the liver. ASSESSMENT AND PLAN: 1. Septic shock. We will continue to try and wean the patient off of the Levophed. Continue with antibiotic therapy. 2. Metastatic colon cancer. Aware. The patient is followed by Dr. Rousseau. 3. Thrombocytopenia. This appears to be worse today. We will discontinue the Zyvox since it can cause thrombocytopenia. Oncology is following. 4. Severe constipation. The patient has not responded to any of the oral laxatives or the suppository. We will order an enema. 5. Severe protein calorie malnutrition. Continue with meal supplements. The dietitian is following. 6. Metabolic acidosis. Continue on sodium bicarbonate tablets. 7. Acute kidney injury. We will monitor closely while the patient is receiving diuretic therapy. 8. Hypokalemia. We will replace the patient's potassium. 9. Coagulopathy. This is likely secondary to the liver metastasis. We will give the patient a dose of vitamin K today. 10. Transaminitis. Likely secondary to liver metastasis. Will continue to monitor closely. 11. Disposition. The patient and her family met with palliative care today. The patient is now a DNR level 2. cc: Gisel Bolaños MD [facility]
[2019-01-06] MEDS ORDERED: FLEET MINERAL OIL ENEMA PR ONE (21:00)
[2019-01-07] MEDS: NORCO-5 PO PRN ×3 (03:32→20:05)
[2019-01-07 05:47] LABS: HEMOGLOBIN 8.2 g/dL (12.0-16.0); MCH 37.3 PG (27-31); MCHC 34.2 g/dL (33-37); MCV 109.1 FL (81-99); MPV 11.4 FL (7.4-10.4); RBC 2.2 XMIL (4.2-5.4); RDW 23.4 % (11.5-14.5); WBC 14.17 X1000 (4.8-10.8)
[2019-01-07] MEDS: LEVOPHED 8 MG in D5 1/2 NS 250 ML IV SCH (05:50)
[2019-01-07 05:53] LABS: INR 1.92; PROTIME 22.4 Seconds (11.0-16.0)
[2019-01-07] MEDS: MAXIPIME 1 GM in NS 50 ML IV SCH ×2 (06:04→16:57)
[2019-01-07 06:15] LABS: ALB/GLOB RATIO 2.4; ALBUMIN 3.3 g/dL (3.5-5.0); DIRECT BILIRUBIN 2.5 mg/dL (0.00-0.20); TOTAL BILIRUBIN 6.34 mg/dL (0.20-1.00); TOTAL PROTEIN 4.7 g/dL (6.3-8.3)
[2019-01-07 06:22] LABS: ALBUMIN 3.1 g/dL (3.5-5.0); CALCIUM 7.9 mg/dL (8.8-10.2); CREATININE 1.3 mg/dL (0.5-0.9); MAGNESIUM 1.6 mg/dL (1.5-2.7); PHOSPHORUS 2.9 mg/dL (2.7-4.5); POTASSIUM 2.9 mmol/L (3.5-5.1)
[2019-01-07] MEDS: ZOFRAN IV PRN ×2 (07:40→20:06)
[2019-01-07] MEDS: MBX SOLUTION MT PRN ×2 (07:40→20:06)
[2019-01-07] MEDS: SYNTHROID PO SCH (08:03)
[2019-01-07] MEDS: PRILOSEC PO SCH (08:03)
[2019-01-07] MEDS: FLORINEF PO SCH ×2 (08:03→20:05)
[2019-01-07] MEDS: SODIUM BICARBONATE PO SCH ×2 (08:03→20:05)
[2019-01-07] MEDS: SENOKOT PO SCH ×2 (08:03→20:19)
[2019-01-07] MEDS: ALBUMIN 25% IV SCH (08:04)
[2019-01-07] MEDS: MIRALAX PO SCH ×2 (08:04→20:05)
[2019-01-07] MEDS ORDERED: VITAMIN K 10 MG in NS 50 ML IV ONE (09:00)
--- NOTE | 2019-01-07 10:41 | Diag Imaging Result Doc PS360 ---
FLAT/UPRIGHT ABD/1 VIEW CHEST - 01/07/2019 INDICATION: dyspnea/constipation TECHNIQUE: COMPARISON: 01/05/2019 FINDINGS: Stable right chest port in good position. Stable critically low lung volumes. No obvious infiltrates. There is a stable appearing gas distended bowel loop which appears to be transverse colon.This measures up to 8.4 cm. No free air. IMPRESSION: Critically low lung volumes. Nonspecific bowel gas pattern. Electronically signed by Rupert Barron 01/07/2019 10:39 AM
[2019-01-07] MEDS ORDERED: KLOR-CON PO ONE (14:23)
[2019-01-07] MEDS ORDERED: MAGNESIUM SULFATE 2 GM/S.W.I. 2 GM/50 ML IVPB IV ONE (14:24)
--- NOTE | 2019-01-07 14:30 | Extremity Venous Study ---
PROCEDURE NAME: Venous U/S Bilateral Legs - 01/06/2019 PROCEDURE PERFORMED: Bilateral lower extremity venous duplex and color flow imaging study using the conXt Vivid E9 ultrasound system with a 9 L-D transducer. REFERRING PHYSICIAN: Dr. Bolaños. A 58-year-old female. D[employer]RO[employer] TECHNICIAN: Kristin. INDICATIONS: Bilateral lower extremity pain and swelling suggestive of deep venous thrombosis. FINDINGS: The right common femoral vein and its branches, deep and superficial femoral veins were satisfactorily imaged. They had flow through them and were compressible. Right popliteal vein and the deep veins below the right knee were all compressible and had flow through them. The superficial veins the right lower extremity were compressible throughout their length. The left common femoral vein and its branches, deep and superficial femoral veins were also satisfactorily imaged. They had flow through them and were compressible. Left popliteal vein and the deep veins below the left knee were all compressible and had flow through them. The superficial veins of the left lower extremity were compressible throughout their length. INTERPRETATION: No evidence of acute deep or superficial venous thrombosis of the bilateral lower extremities. cc: MD Gisel Trinidad MD
--- NOTE | 2019-01-07 16:42 | PROGRESS NOTE ---
DATE: 01/07/2019 SUBJECTIVE: The patient is sleepy this morning. She is has a very poor appetite and has not been eating. She did have 1 liquid bowel movement. She also has a massive amount of ascites in her abdomen. OBJECTIVE: Vital Signs: Temperature 98.6 degrees blood pressure 96/59, heart rate 82, respirations 12, O2 saturations 100% on room air. Intake 2 L output 3 L. General: This is a chronically ill-appearing elderly female lying in bed in no acute distress. HEENT: Head normocephalic atraumatic. Heart: S1, S2 normal. Regular rate and rhythm. Lungs: Clear to auscultation bilaterally. Abdomen: Positive bowel sounds. Distended. Positive fluid wave. Extremities: 3+ edema bilaterally. Neurologic: The patient is lethargic but will awaken when her name is called. She is able to move all 4 extremities. LABS: White blood cell count 14, hemoglobin 8.2, hematocrit 24, platelets 42,000. INR 1.9. Sodium 133, potassium 2.9, chloride 106, CO2 of 13, BUN 19, creatinine 1.3, glucose 115, phosphorus 2.9, magnesium 1.6, total bilirubin 6, direct bilirubin 2.5, AST 45, ALT 26, alkaline phosphatase 302, albumin 3.1. ASSESSMENT AND PLAN: 1. Septic shock. No obvious source of infection was identified in the patient. She does have ascites. We will be doing a paracentesis tomorrow. We will also check the peritoneal fluid for possible source of infection. Will continue to try to wean the patient off the levophed drip. 2. Metastatic colon cancer. Aware. is following. 3. Thrombocytopenia. Slightly improved today. 4. Constipation. The patient had a bowel movement today. Continue with laxative therapy. 5. Metabolic acidosis. Will include will increase the bicarbonate tablets dosage. 6. Severe protein calorie malnutrition. The patient has no appetite in and has not been eating. We will add Megace. Will start clinimix. 7. Hypothyroidism. Continue on Synthroid. 8. Ascites. The patient is scheduled to undergo an ultrasound guided paracentesis tomorrow. 9. Coagulopathy. Continue with vitamin K. 10. Transaminitis with hyperbilirubinemia. The transaminases are decreasing but the bilirubin is increasing. 11. Hypokalemia. Will replace the patient's potassium. 12. Acute kidney injury. We will check urine studies. 13. Splenomegaly. Aware. 14. Suspected liver cirrhosis. Will consult GI. DISPOSITION: The patient remains critically ill. She is currently a DNR level 2. cc: Gisel Bolaños MD MTDD
[2019-01-07 16:48] LABS: URINE SOURCE CATH
[2019-01-07 16:56] LABS: BILIRUBIN URINE NEGATIVE (NEGATIVE); BLOOD URINE MODERATE (NEGATIVE); COLOR YELLOW; GLUCOSE URINE NEGATIVE (NEGATIVE); KETONE URINE NEGATIVE (NEGATIVE); LEUKOCYTES URINE LARGE (NEGATIVE); NITRITE URINE NEGATIVE (NEGATIVE); PROTEIN URINE 50 mg/dL (NEGATIVE); SP GRAVITY URINE 1.012; TURBIDITY URINE HAZY (CLEAR); UROBILINOGEN URINE NORMAL (NORMAL)
[2019-01-07 17:07] LABS: UR CREAT RANDOM 26.1 mg/dL (11-20); UR PROT RANDOM 31.4 mg/dL
[2019-01-07 17:26] LABS: UR EPITHELIAL CELLS <10 /HPF (<10); URINE BACTERIA NEGATIVE /HPF; URINE RBC TNTC /HPF (<10); URINE WBC TNTC /HPF (<10)
[2019-01-07 17:36] LABS: URINE CASTS NONE SEEN; URINE CRYSTALS NONE SEEN; URINE YEAST PRESENT
[2019-01-07] MEDS: CLINIMIX E 4.25%-5% SOLUTION 1,000 ML IV SCH (17:47)
[2019-01-07] MEDS: MEGACE LIQUID PO SCH (20:07)
[2019-01-07] MEDS: DULCOLAX PR SCH (20:19)
--- NOTE | 2019-01-07 20:35 | GASTROENTEROLOGY CONSULTATION ---
DATE: 01/07/2019 REASON FOR CONSULTATION: Ascites, questionable cirrhosis. HISTORY OF PRESENT ILLNESS: This is an unfortunate 58-year-old, female who was initially diagnosed with metastatic colon cancer with metastases to the lung and liver in August of 2017. She has been following with Dr. Rousseau for chemotherapy. She was recently in the hospital for pyelonephritis in November. She has had progressive ascites and has had multiple paracenteses since November, approximately every 2 weeks. Her most recent paracentesis before this admission was 12/19/18, where 1 L of fluid was removed. Prior to that, she was having paracentesis about every 2 weeks with anywhere from 4 to 6 L of fluid removed. Patient had recently followed with Dr. Rousseau. She has been unable to eat or drink much. She was losing weight. She was found to have hypotension and was sent to the hospital for admission. Patient has also been found to have constipation, and she has recently been given multiple laxatives. At the time of our evaluation, she had just had a large loose stool. Patient currently denies shortness of breath. She states the fluid accumulation is not as bad as it is some times. She usually knows when she needs a paracentesis because she will have some shortness of breath and increased abdominal swelling. She has been seen by Oncology. PAST MEDICAL HISTORY: Metastatic colon cancer with metastasis to the liver and lung, GERD, hypothyroidism. PAST SURGICAL HISTORY: Cholecystectomy, hysterectomy, appendectomy, tonsillectomy. ALLERGIES: No known drug allergies. HOME MEDICATIONS: Zyrtec 10 mg daily, Lomotil as needed, dronabinol 1 twice a day, fludrocortisone acetate 1 tablet daily, Synthroid 50 mcg daily, Prilosec 20 mg daily, Zofran 4 mg every 6 hours as needed, Zantac 150 mg daily, spironolactone 25 mg daily as needed. SOCIAL HISTORY: She lives with family. No tobacco, alcohol or drug use reported. FAMILY HISTORY: She has a family history of cirrhosis in her father. Mother had lymphoma, heart disease and hypertension. REVIEW OF SYSTEMS: Per history of present illness. PHYSICAL EXAMINATION: Vital Signs: Temperature 97.1 degrees, pulse 88, respirations 13, blood pressure 81/56. General: Patient is awake and alert in no acute distress. She does have some jaundice noted. Respiratory: Lung sounds essentially clear. Cardiovascular: Regular rate and rhythm. Abdomen: With distention and ascites noted. Otherwise, soft, positive bowel sounds. Neurological: Cranial nerves 2 through 12 intact. Patient is awake and alert at the time of our evaluation. DIAGNOSTIC RESULTS: Laboratory: Hematology: WBC 14.17, hemoglobin 8.2, hematocrit 24.0, MCV 109.1, platelets 42,000. Chemistry: Sodium 133, potassium 2.9, chloride 106, CO2 13, BUN 19, creatinine 1.3, glucose 115, total bilirubin 6.34, AST 45, ALT 26, alkaline phosphatase 302. Ammonia 18. Imaging: Abdominal x-ray on 01/07/2019 showed low lung volumes. Nonspecific bowel gas pattern. Stable appearing gas-distended bowel loop in the transverse colon. The patient has been given a laxative. ASSESSMENT AND PLAN: 1. Sepsis. There has been no specific evidence of infection. Plans for paracentesis tomorrow to rule out bacterial peritonitis. 2. Metastatic colon cancer. Patient is following with Dr. Rousseau. Continue their recommendations. 3. Constipation. Patient has had laxative management and has had a bowel movement. 4. Protein-calorie malnutrition. Continue current management. 5. Ascites. Patient has had multiple paracentesis approximately every 2 weeks since November. 6. Elevated liver function tests and bilirubin. We will continue to monitor. 7. Splenomegaly. We will continue to monitor. She has a paracentesis ordered and will get fluid analysis. Previous paracentesis cytology did not show evidence of malignancy. We will follow on her paracentesis diagnostic results, and further plans to be made as needed. The patient was also seen by Dr. Skinner. Thank you for this consultation. Dictated by DANAE Hoffmann for Westley Skinner MD cc: DANAE Colin MD [facility]
[2019-01-08] MEDS: MAXIPIME 1 GM in NS 50 ML IV SCH ×2 (04:17→17:41)
[2019-01-08] MEDS: LEVOPHED 8 MG in D5 1/2 NS 250 ML IV SCH ×2 (04:20→18:27)
[2019-01-08 04:30] LABS: ALLEN TEST YES; BE -8.2 mmoll (-3.0-3.0); BLOOD TYPE ARTERIAL; HCO3-(ACT) 18.6 mmoll (20.0-26.0); METHB 0.6 % (0.0-1.5); O2(CT) 10.7 mL/dL (15.0-23.0); O2HB 96.9 % (95.0-99.0); PCO2(98.6) 29 mmHg (35-45); PO2(98.6) 98 mmHg (60-100); SAMPLE BLOOD; SAO2 99.3 % (95.0-100.0); THB 7.7 g/dL (11.5-17.4); pH(98.6) 7.36 (7.35-7.45)
[2019-01-08 04:31] LABS: MODALITY ROOM AIR
[2019-01-08] MEDS: CLINIMIX E 4.25%-5% SOLUTION 1,000 ML IV SCH (05:34)
[2019-01-08 06:55] LABS: HEMATOCRIT 20.9 % (37.0-47.0); HEMOGLOBIN 7.2 g/dL (12.0-16.0); MCH 38.7 PG (27-31); MCHC 34.4 g/dL (33-37); MCV 112.4 FL (81-99); MPV 11.4 FL (7.4-10.4); RBC 1.86 XMIL (4.2-5.4); RDW 24.1 % (11.5-14.5); WBC 8.54 X1000 (4.8-10.8)
[2019-01-08 06:56] LABS: PLT 24 X1000 (130-400)
[2019-01-08] MEDS ORDERED: NS 500 ML IV ONE (06:57)
[2019-01-08 06:59] LABS: INR 1.79; PROTIME 21.2 Seconds (11.0-16.0)
[2019-01-08] MEDS ORDERED: VITAMIN K 10 MG in NS 50 ML IV ONE (07:01)
--- NOTE | 2019-01-08 07:06 | Diag Imaging Result Doc PS360 ---
EXAM: CHEST-PORTABLE 01/08/2019 HISTORY: dyspnea TECHNIQUE: AP portable at 0519 COMMENT: The inspiration is suboptimal. Compared to 01/07/2019 there has been no significant change in the appearance of the chest. IMPRESSION: Poor inspiration. Electronically signed by Jacob Day 01/08/2019 7:04 AM
[2019-01-08 07:12] LABS: ALB/GLOB RATIO 3.4; ALBUMIN 3.4 g/dL (3.5-5.0); DIRECT BILIRUBIN 2.1 mg/dL (0.00-0.20); TOTAL BILIRUBIN 5.38 mg/dL (0.20-1.00); TOTAL PROTEIN 4.4 g/dL (6.3-8.3)
[2019-01-08 07:15] LABS: ALBUMIN 2.9 g/dL (3.5-5.0); CALCIUM 8.1 mg/dL (8.8-10.2); CREATININE 1.1 mg/dL (0.5-0.9); PHOSPHORUS 3.4 mg/dL (2.7-4.5); POTASSIUM 3.9 mmol/L (3.5-5.1)
[2019-01-08 07:43] LABS: LYMPHS 4 % (21-51); MONO 6 % (1-9); SEGS 90 % (42-75)
[2019-01-08] MEDS: SYNTHROID PO SCH (08:27)
[2019-01-08] MEDS: SODIUM BICARBONATE PO SCH ×2 (08:27→20:08)
[2019-01-08] MEDS: MEGACE LIQUID PO SCH ×2 (08:27→20:08)
[2019-01-08] MEDS: FLORINEF PO SCH ×2 (08:27→20:08)
[2019-01-08] MEDS: PRILOSEC PO SCH (08:27)
[2019-01-08] MEDS: MIRALAX PO SCH ×2 (08:31→20:11)
[2019-01-08] MEDS: SENOKOT PO SCH ×2 (08:31→20:11)
[2019-01-08] MEDS: NORCO-5 PO PRN (12:57)
[2019-01-08 14:14] LABS: HEPATITIS PROFILE ACUTE SEE COMMENTS
--- NOTE | 2019-01-08 14:21 | GASTROENTEROLOGY PROGRESS NOTE ---
DATE: 01/08/2019 SUBJECTIVE: At the time of my evaluation, patient was being cleaned up and given a bath. Per nurse report, she has had multiple loose stools today so her laxative was held today. Patient required packed red blood cell transfusion and fresh frozen plasma transfusion so she was not able to have her paracentesis today. OBJECTIVE: Vital Signs: Temperature 99.5 degrees, pulse 93, respiration rate 18, blood pressure 111/62. LABORATORY: Hematology: WBC 8.54, hemoglobin 7.2, hematocrit 20.9. Patient has received packed red blood cells. MCV 112.4, platelets 24,000. The patient will be receiving fresh frozen plasma. Chemistry: Sodium 134, potassium 3.9, chloride 106, CO2 13, BUN 21, creatinine 1.1, glucose 130, calcium 8.1, total bilirubin 5.38, AST 32, ALT 19, alkaline phosphatase 253. ASSESSMENT AND PLAN: 1. Sepsis of questionable origin. 2. Metastatic colon cancer. Following with Dr. Rousseau. 3. Constipation. Patient has received laxative regimens and has had multiple loose stools now. 4. Ascites. Patient has had multiple paracenteses. Will plan for paracentesis with further evaluation for the possibility of cirrhosis once she is able to have that done. We will continue to follow along and further plans will be made as needed. The patient was also seen by Dr. Skinner yesterday. I have discussed this case with him today. Dictated by DANAE Hoffmann for Westley Skinner MD cc: DANAE Colin MD
--- NOTE | 2019-01-08 17:57 | PROGRESS NOTE ---
DATE: 01/08/2019 SUBJECTIVE: The patient is resting. She is currently on a Levophed drip. She has no appetite and has not been eating. OBJECTIVE: Vital Signs: Temperature 98 degrees, blood pressure 97/56, heart rate 104, respirations 20, O2 saturation 96% on room air. Intake 2.1 L, output 1.3 L. General: This is a chronically ill, emaciated female lying in bed in no acute distress. Heart: S1, S2 normal. Tachycardic. Lungs: Equal air entry bilaterally. No wheezing. No rales. No rhonchi. Abdomen: Positive bowel sounds. Soft. Distended. Extremities: 3+ edema bilaterally. Neurologic: The patient is alert and oriented x4. LABORATORY DATA: White blood cell count 8.5, hemoglobin 7.2, hematocrit 20, platelets 24,000. Sodium 134, potassium 3.9, chloride 109, CO2 13, BUN 21, creatinine 1.1, glucose 130, total bilirubin 5.3, direct bilirubin 2. IMAGING: Chest x-ray shows poor inspiration. ASSESSMENT AND PLAN: 1. Septic shock. The patient remains on a Levophed drip. The patient was scheduled to have a paracentesis done today; however, the radiologist is not available to do it at this time. This will need to be done on Friday. Continue with antibiotic therapy. We will continue to try and wean the patient off of the Levophed drip. 2. Metastatic colon cancer. Aware. The patient is followed by Dr. Rousseau as outpatient. 3. Thrombocytopenia. Worse today. The patient will receive 1 unit of platelets today. 4. Severe anemia. The patient will receive 1 unit of packed red blood cells today. 5. Metabolic acidosis. Continue on sodium bicarbonate tablets. 6. Acute kidney injury. Improved. 7. Severe protein calorie malnutrition. The patient is currently on Clinimix and Megace. 8. Hypothyroidism. Continue on Synthroid. 9. Ascites. The patient is scheduled to undergo a paracentesis on Friday. GI is following. 10. Coagulopathy. The patient will receive vitamin K today. 11. Transaminitis with hyperbilirubinemia. Slightly improved today. We will continue to monitor closely. The patient has liver metastasis. 12. Splenomegaly with liver cirrhosis. Aware. 13. Disposition. The patient is currently a DNR level 2. cc: Gisel Bolaños MD [facility]
[2019-01-08] MEDS: DULCOLAX PR SCH (20:10)
--- NOTE | 2019-01-08 22:27 | Diag Imaging Result Doc PS360 ---
EXAM: CT THORAX W/O CONTRAST HISTORY: pneumonia TECHNIQUE: CT chest without contrast COMPARISON: 12/25/2018 FINDINGS: Trace pleural fluid. No cardiomegaly. No thoracic aortic aneurysm. No enlarged mediastinal nodes. There are several tiny nodules scattered throughout the lungs. None measure over 7 mm. Atelectasis or infiltrates in the lung bases. Calcified hepatic metastases are again demonstrated with a large amount of ascites in the upper abdomen similar to multiple prior studies. IMPRESSION: No significant interval change. This exam was performed using automated exposure control, adjustment of mA or kV according to patient size, and/or use of iterative reconstruction technique. Electronically signed by Juanjo Castañeda 01/08/2019 10:24 PM
[2019-01-09] MEDS: CLINIMIX E 4.25%-5% SOLUTION 1,000 ML IV SCH ×2 (00:40→13:07)
[2019-01-09] MEDS: MAXIPIME 1 GM in NS 50 ML IV SCH ×2 (04:26→16:36)
[2019-01-09 06:10] LABS: ALB/GLOB RATIO 1.6; ALBUMIN 2.9 g/dL (3.5-5.0); CALCIUM 8.5 mg/dL (8.8-10.2); CREATININE 1.2 mg/dL (0.5-0.9); PHOSPHORUS 3.2 mg/dL (2.7-4.5); POTASSIUM 3.9 mmol/L (3.5-5.1); TOTAL BILIRUBIN 10.33 mg/dL (0.20-1.00); TOTAL PROTEIN 4.7 g/dL (6.3-8.3)
[2019-01-09] MEDS ORDERED: NS 1,000 ML IV SCH (08:00)
[2019-01-09 08:19] LABS: BASO# 0.03 X1000 (0.0-0.2); BASO% 0.3 % (0.0-0.8); EOS# 0.12 X1000 (0.0-0.7); EOS% 1.4 % (0.0-10.0); HEMATOCRIT 25.7 % (37.0-47.0); HEMOGLOBIN 8.6 g/dL (12.0-16.0); IMM GRAN# 0.07 X1000 (0.0-0.04); IMM GRAN% 0.8 % (0.0-0.5); LYMPH# 1.23 X1000 (1.2-3.4); LYMPH% 14.1 % (20.5-51.1); MCH 35.5 PG (27-31); MCHC 33.5 g/dL (33-37); MCV 106.2 FL (81-99); MONO# 1.13 X1000 (0.11-0.59); MPV 11.8 FL (7.4-10.4); NEUT# 6.13 X1000 (1.4-6.5); NEUT% 70.4 % (42.2-75.2); PLT 24 X1000 (130-400); RBC 2.42 XMIL (4.2-5.4); RDW 27.7 % (11.5-14.5); WBC 8.71 X1000 (4.8-10.8)
--- NOTE | 2019-01-09 08:32 | PROGRESS NOTE ---
DATE: 01/09/2019 INTERVAL HISTORY: She could not get her paracentesis done yesterday because of logistic issues. She received so far a unit of blood transfusion and platelets. Her repeat CBC is pending. No other acute overnight events. SUBJECTIVE: She is feeling weak. She has not been eating. She has had bowel movement. She denies any new complaints. I encouraged her to eat and drink better. I discussed with her about adjusting her medication to see if she could be taken off the pressure medication that she is getting for improving her blood pressure. VITALS: Temperature 98.2 degrees, pulse 90, respiratory 15, blood pressure 95/52, MAP more than 65 mmHg, requiring norepinephrine, saturating 100% on room air. PHYSICAL EXAMINATION: Not in any acute distress. She appears weak and tired. No pallor. No cyanosis. No clubbing. HEENT: She has marked conjunctival icterus. Oral cavity has mucositis and some mucositis and superficial oral ulcers. Lungs: Air entry bilaterally equal. No wheeze or rhonchi. Inspiratory crackles bilateral infrascapular and infra-axillary region. She has a right-sided chest port. Cardiovascular: S1, S2 normal. No murmur, rub, or gallop. Abdomen: Distended. Tympanic to percussion in the center of the abdomen and dullness on the flank. Mild tenderness generalized without any rebound or rigidity. Extremities: Bilateral lower extremity edema extending up to thigh level. She has urine catheter. She is able to raise both upper extremities above ground level as well as lower extremities above ground level. Neurologic: She is alert and oriented x3. Input and output suggests she was positive 100 mL in the last 24 hours. She has had multiple bowel movements. LABS: No CBC today. BMP suggestive of increasing BUN and creatinine, elevated total bilirubin as well as alkaline phosphatase. She also has decreasing TSH as compared to prior. No positive culture data. IMAGING: No new imaging. ASSESSMENT AND PLAN: 1. Shock likely a hypovolemic shock due to poor oral intake and intravascular volume depletion. There was also concern of septic shock on presentation with possibility of spontaneous bacterial peritonitis. However, the blood culture data is pending. Continue intravenous cefepime until patient gets paracentesis on 01/11/2019 and accordingly discontinue antibiotics. Continue norepinephrine and home Florinef with goal MAP > 65 mmHg. Give her an additional 1 L of intravenous fluids. I will get ACTH stimulation test tomorrow to rule out adrenal insufficiency. 2. Metastatic colon cancer with liver metastasis and possibly lung metastasis. The patient is following Dr. Rousseau. Her coagulopathy and thrombocytopenia is because of liver involvement. She is status post vitamin dose of vitamin K. I will continue her on megestrol for appetite stimulation. Burns as needed for pain and senna and bisacodyl for constipation which is now resolving. She is status post 1 unit of platelets and 1 unit of packed red blood cells for her anemai and thrombocytopenia related to her liver involvement. Post transfusion CBC is pending. Patient likely undergo paracentesis on 01/11 to evaluate for SBP as well as suspected cirrhosis. 3. JAMIE and Metabolic acidosis on presentation, though her pH was normal. Her bicarbonate continues to improve. My plan is to stop bicarbonate after tomorrow's BMP. 4. Hypothyroidism with extremely elevated TSH on presentation, now improving on current dose of levothyroxine, which I will continue. 5. Severe protein calorie malnutrition due to poor oral intake. She has been receiving treatment of FOLFOXand Erbitux. I will continue to encourage oral intake and intravenous Clinimix. 6. Others: She has splenomegaly with liver cirrhosis and GI on board. Her code status is DNR level 2. DISPOSITION: I will continue to monitor patient inside ICU. She has been on fludrocortisone for her rather chronic hypotension, which I will continue and I will give her an additional L of bolus to see if we can take her off of norepinephrine. Plan of care discussed with her. Her questions have been answered. Considering her coagulopathy, she is not on any DVT prophylaxis. cc: Flash Roy MD MTDD
[2019-01-09] MEDS: PRILOSEC PO SCH (08:47)
[2019-01-09] MEDS: MEGACE LIQUID PO SCH ×2 (08:47→22:24)
[2019-01-09] MEDS: FLORINEF PO SCH ×2 (08:47→22:24)
[2019-01-09] MEDS: SODIUM BICARBONATE PO SCH ×2 (08:47→22:24)
[2019-01-09] MEDS: SYNTHROID PO SCH (08:48)
[2019-01-09] MEDS: SENOKOT PO SCH ×2 (09:18→22:24)
[2019-01-09] MEDS: MIRALAX PO SCH ×2 (09:18→22:23)
--- NOTE | 2019-01-09 16:13 | GASTROENTEROLOGY PROGRESS NOTE ---
DATE: 01/09/2019 SUBJECTIVE: Ms. Cornelius was resting comfortably, somnolent. Appears to be lethargic. She was not answering questions. Most of the questions were answered by her , who was present at the bedside. According to him, she is doing better and she is waiting for her paracentesis to be done on Friday. Rest of the medical treatment is ongoing for presumed sepsis, and she is still on pressors. From GI perspective, there is not much to add for her metastatic colon cancer and possible cirrhosis of the liver. I am waiting for the paracentesis to be done, and the recommendation will be dependent on the nature of the fluids after the studies, whether her sag is elevated or not. I have discussed my findings with the patient's . He understood and all of his pertinent questions answered. cc: Westley Skinner MD
[2019-01-09] MEDS: LEVOPHED 8 MG in D5 1/2 NS 250 ML IV SCH (19:57)
[2019-01-09] MEDS: DULCOLAX PR SCH (22:23)
[2019-01-10] MEDS: CLINIMIX E 4.25%-5% SOLUTION 1,000 ML IV SCH ×2 (02:46→16:53)
[2019-01-10] MEDS: MAXIPIME 1 GM in NS 50 ML IV SCH ×2 (05:13→16:57)
[2019-01-10] MEDS: NORCO-5 PO PRN (05:21)
[2019-01-10 06:53] LABS: INR 1.44; PROTIME 17.8 Seconds (11.0-16.0)
[2019-01-10 07:08] LABS: AGAP 12; ALB/GLOB RATIO 1.3; ALBUMIN 2.5 g/dL (3.5-5.0); ALKALINE PHOSPHATASE 234 U/L (32-104); BUN 36 mg/dL (8-22); CALCIUM 8.5 mg/dL (8.8-10.2); CHLORIDE 105 mmol/L (98-107); COSMO 278; CREATININE 0.7 mg/dL (0.5-0.9); ESTIMATED GFR > 60; GLUCOSE 126 mg/dL (70-104); GOT 43 U/L (10-30); GPT 17 U/L (10-36); MAGNESIUM 1.8 mg/dL (1.5-2.7); POTASSIUM 4.1 mmol/L (3.5-5.1); SODIUM 134 mmol/L (136-145); TCO2 17 mmol/L (25-35); TOTAL BILIRUBIN 7.25 mg/dL (0.20-1.00); TOTAL PROTEIN 4.5 g/dL (6.3-8.3)
[2019-01-10] MEDS ORDERED: CORTROSYN IV ONE (08:39)
[2019-01-10] MEDS: MEGACE LIQUID PO SCH ×2 (09:05→20:26)
[2019-01-10] MEDS: SODIUM BICARBONATE PO SCH ×2 (09:05→20:26)
[2019-01-10] MEDS: SYNTHROID PO SCH (09:06)
[2019-01-10] MEDS: PRILOSEC PO SCH (09:06)
[2019-01-10] MEDS: FLORINEF PO SCH ×2 (09:06→20:27)
[2019-01-10] MEDS: MIRALAX PO SCH ×2 (09:11→20:35)
[2019-01-10] MEDS: SENOKOT PO SCH ×2 (09:11→20:35)
[2019-01-10 09:22] LABS: BASO# 0.03 X1000 (0.0-0.2); BASO% 0.4 % (0.0-0.8); EOS# 0.13 X1000 (0.0-0.7); EOS% 1.5 % (0.0-10.0); HEMATOCRIT 25.8 % (37.0-47.0); HEMOGLOBIN 8.6 g/dL (12.0-16.0); IMM GRAN# 0.02 X1000 (0.0-0.04); IMM GRAN% 0.2 % (0.0-0.5); LYMPH# 1.48 X1000 (1.2-3.4); LYMPH% 17.4 % (20.5-51.1); MCH 35.8 PG (27-31); MCHC 33.3 g/dL (33-37); MCV 107.5 FL (81-99); MONO# 1.02 X1000 (0.11-0.59); MPV 12.6 FL (7.4-10.4); NEUT# 5.83 X1000 (1.4-6.5); NEUT% 68.5 % (42.2-75.2); PLT 30 X1000 (130-400); RDW 27.6 % (11.5-14.5); WBC 8.51 X1000 (4.8-10.8)
--- NOTE | 2019-01-10 09:52 | PROGRESS NOTE ---
DATE: 01/10/2019 SUBJECTIVE: Apparently, she is a little bit more awake today. Answered questions appropriately. , who is at bedside, reports no issues, as well as nursing staff. OBJECTIVE: Vital Signs: Temperature 98.4 degrees, heart rate 92, respiratory rate 13, blood pressure 188/49, O2 saturation 99% on room air. General Examination: This is a chronically ill- appearing, 58-year-old, female lying in bed, in no acute distress. HEENT: Head is normocephalic and atraumatic. Marked conjunctival icterus. Oral cavity has some mucositis and superficial oral ulcers. Neck: No JVD noted. No carotid bruits. No lymphadenopathy. No thyromegaly. Cardiovascular Examination: S1 and S2 heard. No murmurs, gallops, or rubs. Regular rate and rhythm. Respiratory Examination: Clear bilaterally to auscultation. No work of breathing or using accessory muscles. Minimal inspiratory crackles in both bases. Abdomen: Soft. A little bit distended. Tympanic to percussion in the center of the abdomen. Abdomen has ascites noted. No signs of peritoneal irritation. Extremities: Bilateral lower extremity edema extending up to the thigh level. The patient has a Lester catheter. Neurological Examination: The patient moves 4 extremities. A little more awake today. Laboratory Data: CBC is still pending. Creatinine is completely normal, sodium 134, normal phosphorus 2.8. ASSESSMENT AND PLAN: 1. Shock, likely due to hypovolemic shock, poor oral intake, and intravascular volume depletion. Unfortunately, this patient continues to have low blood pressure and required 3 mcg of Levophed. The patient is on Clinimix at 75 mL per hour. I think we are going to continue with the same. The patient is receiving cefepime for possible spontaneous bacterial peritonitis. We are going to do paracentesis tomorrow and according to results, we will discontinue antibiotics. There has been an ACTH stimulation test today. We will see what it shows. 2. Metastatic colon cancer with liver metastasis and possible lung metastasis. The patient is being followed with Dr. Rousseau. Coagulopathy and thrombocytopenia is related to liver involvement. At this point, we will continue keeping this patient comfortable with [place] for pain and medication for constipation as well. 3. Acute kidney injury, resolved. 4. Hypothyroidism, getting better. TSH at presentation was 34. In the last few days, it was checked and it was 10. We will continue with the same management. 5. Severe protein calorie malnutrition. Patient encouraged to eat. The patient is receiving Clinimix at this point. 6. Disposition. At this point, the patient continues to be on fludrocortisone and intravenous fluids; in this case, Clinimix for blood pressure control. We will continue to monitor this patient here in the intensive care unit. cc: Severo Hanks MD MTDD
--- NOTE | 2019-01-10 14:08 | GASTROENTEROLOGY PROGRESS NOTE ---
DATE: 01/10/2019 SUBJECTIVE: Patient is awake and alert. She is sitting up in her bed, eating lunch. Her is at the bedside. OBJECTIVE: Vital Signs: Temperature 99.5 degrees, pulse 95, respirations 16, blood pressure 98/64. General: The patient is awake and alert. Abdomen: With some distention and ascites noted. Laboratory: Hematology: WBC 8.51, hemoglobin 8.6, hematocrit 25.8, MCV 107.5, platelets 30,000. Coagulation: Prothrombin time 17.8, INR 1.44. ASSESSMENT AND PLAN: 1. Sepsis. Continue current management. 2. Metastatic colon cancer with liver and lung metastases, following with Dr. Rousseau. 3. Ascites. We are planning on paracentesis for further evaluation tomorrow. 4. We will continue to follow during her hospital course. Further plans will be made according to paracentesis results. I have discussed this case with Dr. Skinner. Dictated by DANAE Hoffmann for Westley Skinner MD cc: DANAE Colin MD
[2019-01-10] MEDS: DULCOLAX PR SCH (20:35)
[2019-01-11] MEDS: MAXIPIME 1 GM in NS 50 ML IV SCH ×2 (05:13→17:16)
[2019-01-11] MEDS: CLINIMIX E 4.25%-5% SOLUTION 1,000 ML IV SCH ×3 (05:14→21:00)
[2019-01-11 06:56] LABS: AGAP 10; ALB/GLOB RATIO 1.4; ALBUMIN 2.7 g/dL (3.5-5.0); ALKALINE PHOSPHATASE 302 U/L (32-104); BUN 45 mg/dL (8-22); CALCIUM 8.2 mg/dL (8.8-10.2); CHLORIDE 102 mmol/L (98-107); COSMO 274; CREATININE 0.8 mg/dL (0.5-0.9); ESTIMATED GFR > 60; GLUCOSE 126 mg/dL (70-104); GOT 49 U/L (10-30); GPT 22 U/L (10-36); POTASSIUM 4.6 mmol/L (3.5-5.1); SODIUM 130 mmol/L (136-145); TCO2 18 mmol/L (25-35); TOTAL BILIRUBIN 6.93 mg/dL (0.20-1.00); TOTAL PROTEIN 4.7 g/dL (6.3-8.3)
[2019-01-11 07:05] LABS: BASO# 0.02 X1000 (0.0-0.2); BASO% 0.3 % (0.0-0.8); EOS# 0.05 X1000 (0.0-0.7); EOS% 0.8 % (0.0-10.0); HEMOGLOBIN 7.9 g/dL (12.0-16.0); IMM GRAN# 0.02 X1000 (0.0-0.04); IMM GRAN% 0.3 % (0.0-0.5); LYMPH# 1.06 X1000 (1.2-3.4); LYMPH% 16.4 % (20.5-51.1); MCH 35.4 PG (27-31); MCHC 32.9 g/dL (33-37); MCV 107.6 FL (81-99); MONO% 12.4 % (1.7-9.3); MPV 12.9 FL (7.4-10.4); NEUT% 69.8 % (42.2-75.2); RBC 2.23 XMIL (4.2-5.4); RDW 26.9 % (11.5-14.5); WBC 6.45 X1000 (4.8-10.8)
[2019-01-11 07:06] LABS: PLT 20 X1000 (130-400)
[2019-01-11 07:42] LABS: LYMPHS 16 % (21-51); MONO 11 % (1-9); SEGS 73 % (42-75)
[2019-01-11] MEDS ORDERED: NS 500 ML IV ONE (08:32)
[2019-01-11] MEDS: FLORINEF PO SCH ×2 (08:51→20:51)
[2019-01-11] MEDS: SENOKOT PO SCH ×2 (08:52→20:52)
[2019-01-11] MEDS: SYNTHROID PO SCH (08:52)
[2019-01-11] MEDS: PRILOSEC PO SCH (08:52)
[2019-01-11] MEDS: MIRALAX PO SCH ×2 (08:52→20:52)
[2019-01-11] MEDS: MEGACE LIQUID PO SCH ×2 (08:52→20:51)
[2019-01-11] MEDS: SODIUM BICARBONATE PO SCH ×2 (08:52→20:51)
--- NOTE | 2019-01-11 09:09 | PROGRESS NOTE ---
DATE: 01/11/2019 SUBJECTIVE: The patient, according to nursing, is a little bit more awake. Denies any fever, chills, or any kind of pain. is also at bedside. He does not report any issues overnight. OBJECTIVE: Vital Signs: Temperature 98.5, heart rate 82, respiratory rate 15, blood pressure 91/57, O2 saturation 100% on room air. General: This is a chronically ill- appearing and malnourished, 58-year-old female, lying in bed in no acute distress. HEENT: Head is normocephalic, atraumatic. Still marked conjunctival icterus. Oral cavity has some mucositis and superficial oral ulcers, unchanged from yesterday. Neck: No JVD noted. No carotid bruits. No lymphadenopathy. No thyromegaly. Cardiovascular: S1, S2 heard. No murmurs, gallops, or rubs. Regular rate and rhythm. Respiratory: Minimal crackles noted in both pulmonary bases. The patient is not using any accessory muscles or having work of breathing. Abdomen: Soft. Definitely distended, compatible with ascites. No signs of peritoneal irritation. Extremities: Bilateral lower extremity edema extending up to the thigh level. Genitourinary: The patient has a Lester catheter. Neurological: The patient is awake, answers questions appropriately, moves all 4 extremities. LABORATORY DATA: White cell count 6.45, hemoglobin 7.9, hematocrit 24.0, platelets 20. BMP shows sodium 130, with total bilirubin 6.93. AST 22, ALT 22, and alkaline phosphatase 302. ASSESSMENT AND PLAN: 1. Shock, likely due to hypovolemia, poor oral intake, and intravascular volume depletion. The patient continues to require vasopressors. Yesterday, he was requiring 3 mcg of Levophed. Today, he is only on 1, so at this point, we are going to hold that medication and see how this patient is doing. Clinimix is being given at 75 mL per hour. Will continue with the same management. For possible spontaneous bacterial peritonitis, the patient is receiving Cefepime. For possible examination of the low blood pressure, we have ordered an ACTH stimulation test today. Will check the results. 2. Metastatic colon cancer with liver metastasis and possible lung metastasis. The patient is being followed by Dr. Rousseau. Coagulopathy and thrombocytopenia are related to liver disease. Platelet count continues to be low. Gastroenterology is following this patient as well, and we need to do a paracentesis to rule out any spontaneous bacterial peritonitis. In order to do that, considering her thrombocytopenia, we are going to provide 2 units of platelets just before the procedure. 3. Acute kidney injury, resolved. 4. Hypothyroidism. The patient continues to receive levothyroxine. TSH checked a few days ago was 10, but at admission was 34. Will continue to monitor. 5. Severe protein calorie malnutrition. The patient is not eating okay. She is receiving Clinimix at this point. The patient has been encouraged to eat. Will continue with Megace. 6. Disposition. At this point, the patient continues to be on fludrocortisone and Clinimix intravenously. Will see if we are able to wean off Levophed today. Will see if we are able to do paracentesis. Following lead from Gastroenterology and Oncology. cc: Severo Hanks MD MTDD
[2019-01-11] MEDS: NORCO-5 PO PRN (13:52)
--- NOTE | 2019-01-11 14:07 | Diag Imaging Result Doc PS360 ---
EXAM: US ABD PARACENTESIS W S/I HISTORY: suspected SBP TECHNIQUE: Ultrasound-guided paracentesis COMPARISON: None. FINDINGS: Prior to the procedure I discussed the risk and benefits with the patient. Primary risks include bleeding, infection, bowel injury, and liver injury. Questions were answered. Consent was given. The permit was signed. Ultrasound was used to localize the largest fluid collection in the right abdomen. This area was cleaned and draped in the normal fashion. Lidocaine was used as a local anesthetic. Needle and catheter were advanced into the fluid collection on the first attempt without difficulty. The needle was withdrawn. The catheter was hooked to suction. Approximately 6.2 L were withdrawn without difficulty. The catheter was then withdrawn. No immediate postprocedural complications. IMPRESSION: Successful ultrasound-guided paracentesis. Electronically signed by Juanjo Castañeda 01/11/2019 2:04 PM
[2019-01-11] MEDS: LEVOPHED 8 MG in D5 1/2 NS 250 ML IV SCH (15:25)
--- NOTE | 2019-01-11 18:12 | GASTROENTEROLOGY PROGRESS NOTE ---
DATE: 01/11/2019 SUBJECTIVE: Patient was awake and alert. At the time of my visit, her is at the bedside. She is waiting on a paracentesis today. She has had to receive platelets due to her low platelet count prior to the procedure. OBJECTIVE: Vital Signs: Temperature 99.4 degrees, pulse 89, respirations 18, blood pressure 98/56. General: Patient is awake, in no acute distress. Abdomen: With some distension, otherwise soft. LABORATORY: Hematology: WBC 6.45, hemoglobin 7.9, hematocrit 24.0, MCV 107.6 platelet 20,000. Chemistry: Sodium 130, potassium 4.6, chloride 102, CO2 of 18, BUN 45, creatinine 0.8, glucose 126. ASSESSMENT AND PLAN: 1. Sepsis. Patient has received management. I believe they are her titrating her Levophed down. 2. Metastatic colon cancer with metastases to the liver and possible lung. 3. Ascites. Patient has had to receive frequent paracenteses about every 2 weeks. Planning on a paracentesis when able. She is having to receive platelets today. Gastroenterology will continue to follow along. Further plans will be made according to her progress and paracentesis results when able to be done. I have discussed this case with Dr. Skinner. Dictated by DANAE Hoffmann for Westley Skinner MD cc: DAANE Colin MD
[2019-01-11 18:51] LABS: BODY FLUID SOURCE PERITONEAL FLUID; WBC BF 28 /cumm
[2019-01-11 18:58] LABS: MONOS 76 %; POLYS 24 %
[2019-01-11 19:12] LABS: ALBUMIN BODY FLUID 0.8 g/dL; LDH BODY FLUID 59 U/L
[2019-01-11] MEDS: DULCOLAX PR SCH (20:52)
[2019-01-12] MEDS: MAXIPIME 1 GM in NS 50 ML IV SCH ×2 (04:41→16:29)
[2019-01-12 06:45] LABS: BASO# 0.02 X1000 (0.0-0.2); BASO% 0.3 % (0.0-0.8); EOS# 0.15 X1000 (0.0-0.7); EOS% 1.9 % (0.0-10.0); HEMATOCRIT 25.1 % (37.0-47.0); HEMOGLOBIN 8.5 g/dL (12.0-16.0); IMM GRAN# 0.04 X1000 (0.0-0.04); IMM GRAN% 0.5 % (0.0-0.5); LYMPH# 1.28 X1000 (1.2-3.4); LYMPH% 16.6 % (20.5-51.1); MCH 36.3 PG (27-31); MCHC 33.9 g/dL (33-37); MCV 107.3 FL (81-99); MONO# 1.48 X1000 (0.11-0.59); MONO% 19.2 % (1.7-9.3); MPV 11.3 FL (7.4-10.4); NEUT# 4.74 X1000 (1.4-6.5); NEUT% 61.5 % (42.2-75.2); RBC 2.34 XMIL (4.2-5.4); RDW 26.2 % (11.5-14.5); WBC 7.71 X1000 (4.8-10.8)
[2019-01-12 06:46] LABS: PLT 26 X1000 (130-400)
[2019-01-12] MEDS ORDERED: STERILE WATER INJ. INJ PRN (06:55)
[2019-01-12 06:57] LABS: AGAP 10; ALBUMIN 2.5 g/dL (3.5-5.0); ALKALINE PHOSPHATASE 351 U/L (32-104); BUN 42 mg/dL (8-22); CALCIUM 8.8 mg/dL (8.8-10.2); CHLORIDE 102 mmol/L (98-107); COSMO 273; CREATININE 0.6 mg/dL (0.5-0.9); ESTIMATED GFR > 60; GLUCOSE 133 mg/dL (70-104); GOT 42 U/L (10-30); GPT 21 U/L (10-36); POTASSIUM 5.1 mmol/L (3.5-5.1); SODIUM 130 mmol/L (136-145); TCO2 18 mmol/L (25-35); TOTAL BILIRUBIN 6.25 mg/dL (0.20-1.00); TOTAL PROTEIN 5.1 g/dL (6.3-8.3)
[2019-01-12] MEDS ORDERED: CALMOSEPTINE OINTMENT TOP PRN (07:10)
[2019-01-12] MEDS ORDERED: PROCTOFOAM-HC FOAM TOP PRN (07:11)
--- NOTE | 2019-01-12 08:20 | PROGRESS NOTE ---
DATE: 01/12/2019 INTERVAL HISTORY: No acute events overnight. The patient underwent a paracentesis yesterday, and 6.2 L of fluid was removed. The patient tolerated the procedure well without any complications. In the morning time, the patient denies any new complaints. Denies any chest pain or shortness of breath. Denies cough. Denies nausea, vomiting, or abdominal pain. VITAL SIGNS: Temperature of 98.8 degrees, pulse 74, respiratory rate 18, blood pressure 120/55 requiring norepinephrine of 5 on 100% saturation. PHYSICAL EXAMINATION: She has mucositis.Lungs: Air entry bilaterally equal. No wheeze or rhonchi. Inspiratory crackles bilateral inframammary region. Cardiovascular: S1, S2 normal. No murmur, rub, or gallop. Abdomen: Obese and soft. Mild generalized tenderness. Extremities: Bilateral lower extremity edema. She has icterus. She is alert and oriented x3. LABORATORY: Labs are suggestive of persistent thrombocytopenia, hyponatremia, and low bicarbonate. She does have elevated BUN with normal creatinine, persistently elevated transaminitis. Her ACTH level was undetectable. She had had appropriate response to cosyntropin stimulation test. MICROBIOLOGY: No positive data yet. ASSESSMENT AND PLAN: 1. Shock, likely hypovolemic due to poor oral intake and intravascular volume depletion. She did have less than 250 of WBCs in ascitic fluid though it was collected after several days of antibiotics. Continue norepinephrine to maintain a goal MAP of more than 65 mmHg. Day 1 of intravenous antibiotics have been 01/04/2019. I will stop the antibiotics if the ascitic fluid culture is negative. 2. Suspected adrenal insufficiency, likely secondary to pituitary insufficiency. She denies known history of Mike syndrome, brain radiation, stroke or brain surgery. Noticeably, her TSH was high. I will follow up other pituitary hormones to rule out panhypopituitarism. I will also start her on intravenous hydrocortisone for suspected secondary adrenal insufficiency. 3. Metastatic colon cancer with liver and lung metastasis with resultant coagulopathy and thrombocytopenia. She was on FOLFOX and Erbitux with stable to improved disease. Heme-Onc on board. She does not have any overt signs of bleeding related to her thrombocytopenia. Her serum albumin acidic gradient is more than 1.1 suggestive of portal hypertension. I will give her intravenous albumin. She is status post 6 L of paracentesis. 4. Others. Continue levothyroxine for hypothyroidism; intravenous Clinimix for nutrition until her oral intake improves. She does have severe protein energy malnutrition. Stop Megestrol considering the risk of DVT associated with it. I will resume her home medications. 5. Disposition. Her code status is DNR. Level 2. I will continue to monitor patient in ICU. Plan of care discussed with her. Questions were answered. cc: Flash Roy MD MTDD
[2019-01-12] MEDS: CLINIMIX E 4.25%-5% SOLUTION 1,000 ML IV SCH ×2 (08:52→20:49)
[2019-01-12] MEDS: FLORINEF PO SCH ×2 (08:52→20:48)
[2019-01-12] MEDS: SYNTHROID PO SCH (08:52)
[2019-01-12] MEDS: PRILOSEC PO SCH (08:53)
[2019-01-12] MEDS: SODIUM BICARBONATE PO SCH ×2 (08:53→20:48)
[2019-01-12] MEDS: ALBUMIN 25% IV SCH ×2 (08:56→13:28)
[2019-01-12] MEDS: MIRALAX PO SCH ×2 (09:03→22:14)
[2019-01-12] MEDS: SENOKOT PO SCH ×2 (09:04→22:14)
[2019-01-12] MEDS: MARINOL PO SCH ×2 (09:11→20:47)
[2019-01-12] MEDS: SOLU-CORTEF IV SCH ×3 (09:12→20:40)
--- NOTE | 2019-01-12 13:03 | GASTROENTEROLOGY PROGRESS NOTE ---
DATE: 01/12/2019 SUBJECTIVE: The patient is awake and alert. She is in no acute distress. She states she does feel better after having fluid removed from her abdomen. She had approximately 6.2 L of ascitic fluid removed. OBJECTIVE: Vital Signs: Temperature 97.7 degrees, pulse 75, respirations 17, blood pressure 120/61. General: The patient is awake and alert. No acute distress. She continues to have jaundice. Abdomen: Softer and less distended after recent paracentesis. Laboratory: Hematology: WBCs 7.71, hemoglobin 8.5, hematocrit 25.1, MCV 107.3, platelets 26,000. Chemistry: Sodium 130, potassium 5.1, chloride 102, CO2 of 18, BUN 42, creatinine 0.6, glucose 133. Total bilirubin 6.25, AST 42, alkaline phosphatase 351. ASSESSMENT AND PLAN: 1. Hypovolemia. The patient is on vasopressors. 2. Metastatic colon cancer with metastases to the liver and lung. Patient has had a recent paracentesis with over 6 L of fluid removed. SAAG calculation greater than 1.1, consistent with portal hypertension secondary to metastatic colon cancer. We will continue to follow recommendations with Dr. Rousseau or Dr. Jena Chadwick. Gastroenterology will continue to follow and be available as needed. I have discussed this case with Dr. Skinner. Dictated by DANAE Hoffmann for Westley Skinner MD cc: DANAE Colin MD
[2019-01-12] MEDS: LEVOPHED 8 MG in D5 1/2 NS 250 ML IV SCH (14:33)
[2019-01-12] MEDS: NORCO-5 PO PRN (20:48)
[2019-01-12] MEDS: DULCOLAX PR SCH (22:13)
[2019-01-13] MEDS: NORCO-5 PO PRN ×2 (00:57→20:14)
[2019-01-13] MEDS: SOLU-CORTEF IV SCH ×4 (02:05→20:13)
[2019-01-13] MEDS: MAXIPIME 1 GM in NS 50 ML IV SCH (04:20)
[2019-01-13 06:17] LABS: AGAP 9; ALB/GLOB RATIO 1.2; ALBUMIN 2.7 g/dL (3.5-5.0); ALKALINE PHOSPHATASE 275 U/L (32-104); BUN 41 mg/dL (8-22); CALCIUM 8.3 mg/dL (8.8-10.2); CHLORIDE 104 mmol/L (98-107); COSMO 275; CREATININE 0.6 mg/dL (0.5-0.9); ESTIMATED GFR > 60; GLUCOSE 135 mg/dL (70-104); GOT 36 U/L (10-30); GPT 19 U/L (10-36); POTASSIUM 5.6 mmol/L (3.5-5.1); SODIUM 131 mmol/L (136-145); TCO2 18 mmol/L (25-35); TOTAL BILIRUBIN 5.22 mg/dL (0.20-1.00); TOTAL PROTEIN 4.9 g/dL (6.3-8.3)
[2019-01-13 06:23] LABS: HEMATOCRIT 20.8 % (37.0-47.0); HEMOGLOBIN 6.6 g/dL (12.0-16.0); LYMPH% 13.9 % (20.5-51.1); MCH 35.1 PG (27-31); MCHC 31.7 g/dL (33-37); MCV 110.6 FL (81-99); MONO% 11.5 % (1.7-9.3); NEUT# 3.23 X1000 (1.4-6.5); NEUT% 74.6 % (42.2-75.2); RBC 1.88 XMIL (4.2-5.4); RDW 26.1 % (11.5-14.5); WBC 4.33 X1000 (4.8-10.8)
[2019-01-13 06:27] LABS: PLT 17 X1000 (130-400)
[2019-01-13] MEDS ORDERED: NS 500 ML IV ONE ×2 (06:49→18:34)
[2019-01-13] MEDS: SODIUM BICARBONATE PO SCH ×2 (07:59→20:14)
[2019-01-13] MEDS: SYNTHROID PO SCH (07:59)
[2019-01-13] MEDS: PRILOSEC PO SCH (07:59)
[2019-01-13] MEDS: MARINOL PO SCH ×2 (07:59→20:15)
[2019-01-13] MEDS: MIRALAX PO SCH ×2 (08:00→20:35)
[2019-01-13] MEDS: FLORINEF PO SCH ×2 (08:00→20:14)
[2019-01-13] MEDS: SENOKOT PO SCH ×2 (08:00→20:35)
[2019-01-13] MEDS: CLINIMIX E 4.25%-5% SOLUTION 1,000 ML IV SCH (08:04)
--- NOTE | 2019-01-13 09:38 | PROGRESS NOTE ---
DATE: 01/13/2019 INTERVAL HISTORY: No acute events overnight. She has been on 1 mcg of norepinephrine. She denies any other complaints. VITALS: Temperature of 98.8 degrees, pulse 91 respiratory rate 19, blood pressure 81/54. She is saturating 100% on room air. PHYSICAL EXAMINATION: Not in acute distress.HEENT: Oral cavity is moist. Lungs: Air entry bilaterally equal. No wheeze, rhonchi, or crackles. Cardiovascular: S1, S2 normal. No murmur, rub, or gallop. She has a right-sided chest port. Abdomen: Flat, bilateral flank tenderness, mild ascites. She has bilateral lower extremity edema. She has marked scleral icterus. She is alert oriented x3. She has urine catheter. LABS: Suggestive of low WBC, low hemoglobin and low platelet count. She also has hyperkalemia. MICROBIOLOGY: No positive data. IMAGING: No new imaging. ASSESSMENT AND PLAN: 1. Shock of unclear etiology. On presentation, she was hypovolemic due to poor oral intake and intravascular volume depletion. There was a suspicion of septic shock as well from spontaneous bacterial peritonitis. However, the blood culture was unremarkable. Ascitic fluid did not have any spontaneous bacterial peritonitis related findings, though it was done several days after IV antibiotics. There is also a concern for adrenal insufficiency, which could have contributed to her shock. I will stop antibiotics today. She received cefepime between January 04, and January 13. Ascitic fluid culture was negative. 2. Suspected hypopituitarism based on undetectable ACTH, FSH, LH. She also had extremely low level of serum cortisol ADM. Continue intravenous hydrocortisone and levothyroxine. Noticeably, her TSH was high. Growth hormone is in lab. Prolactin was also high. I will follow up MRI brain to evaluate her pituitary gland. 3. Metastatic colon cancer with lung and liver metastasis with resultant coagulopathy, thrombocytopenia and anemia due to bone marrow suppression. She is on FOLFOX and the Erbitux with stable to improve disease. I will give her 1 unit of packed red blood cells and will transfuse with a goal of keeping hemoglobin more than 7 and platelet more than 10,000 unless she bleeds. She is status post 6 L of paracentesis for her ascites. She also received intravenous albumin on January 12. 4. Others continue levothyroxine for hypothyroidism, intravenous Clinimix for nutrition until her oral intake improves for severe protein energy malnutrition, dronabinol for anorexia and follow-up aldosterone level considering her low bicarbonate. No chemical DVT prophylaxis due to thromocytopenia. DISPOSITION: I will continue to monitor patient inside the hospital. Plan of care discussed with the patient. All of her questions were answered. My goal is to wean off norepinephrine today, continue intravenous hydrocortisone. I will continue monitor in ICU. TIME SPENT: More than 30 minutes of critical care time was spent in care of this patient. ADDENDUM: MRI and CAT scan head report reviewed. I will follow up with repeat CAT scans of head to see if the subdural hematoma progresses. She doesn't have any midline shift or focal deficits. cc: Flash Roy MD MTDKenneth
--- NOTE | 2019-01-13 13:34 | Diag Imaging Result Doc PS360 ---
MRI BRAIN W/WO CONTRAST - 01/13/2019 INDICATION: Evaluate for pituitary hemorrhage/adenoma COMPARISON: None FINDINGS: There are small to moderate bilateral subdural collections. These measure about 6.6 mm on the right and 10 mm on the left. These are hyperintense on the T2 and FLAIR weighted images. These are isodense on the T1-weighted image. There is diffuse, severe, irregular nodular enhancement of the dura mater. The pituitary enhances normally. There is a small amount of blooming artifact primarily at the left dura mater. Midline structures are overall unremarkable. IMPRESSION: Bilateral complicated subdural collections left greater than right. These may represent recent subdural hemorrhages or meningitis. A head CT is recommended. Electronically signed by Rupert Barron 01/13/2019 1:31 PM
--- NOTE | 2019-01-13 15:57 | GASTROENTEROLOGY PROGRESS NOTE ---
DATE: 01/13/2019 At the time of my evaluation, patient was resting, asleep in no acute distress. Family was at the bedside. Cytology report from paracentesis showed atypical cells. OBJECTIVE: Vital Signs: Temperature 99.0 degrees, pulse 67, respirations 16, blood pressure 101/51. General: Patient is asleep in no acute distress. LABORATORY: Hematology: WBC 4.33, hemoglobin 6.6, hematocrit 20.8, MCV 110.6, platelets 17,000. Chemistry: Sodium 131, potassium 5.6, chloride 104, CO2 18. BUN 41, creatinine 0.6, glucose 135, total bilirubin 5.22, AST 36, ALT 19, alkaline phosphatase 275. Patient had an MRI of the brain to evaluate for pituitary hemorrhage/adenoma. Findings showed bilateral complicated subdural collections, left greater than right, possibly representing recent subdural hemorrhages or meningitis. ASSESSMENT AND PLAN: 1. Hypovolemic shock. The patient has received resuscitation. She is on low-dose Levophed. They are working on titrating that off if able. 2. Questionable hypopituitarism. Has had recent MRI of the brain, hospitalist following. 3. Metastatic colon cancer with metastasis to the liver and lung. Patient has had recent paracentesis with 6 L of fluid removed. Patient is receiving antibiotics. PLAN: Continue current management per medical team. Unfortunately not much GI can offer. We will continue to follow peripherally. Please re-consult as needed. I have discussed the case with Dr. Skinner. Dictated by DANAE Hoffmann for Westley Skinner MD cc: DANAE Colin MD
[2019-01-13] MEDS ORDERED: ALBUTEROL 0.5% INH CONC FOR HYPERKALEMIA INH ONE (16:20)
[2019-01-13] MEDS ORDERED: HUMULIN R IV ONE (16:21)
[2019-01-13] MEDS ORDERED: D50W SYRINGE IV ONE (16:21)
[2019-01-13] MEDS ORDERED: ALBUMIN 25% IV ONE (16:47)
--- NOTE | 2019-01-13 17:23 | Diag Imaging Result Doc PS360 ---
CT HEAD W/O CONTRAST - 01/13/2019 INDICATION: Evaluate for Subdural hematoma found on MRI brain. COMPARISON: None FINDINGS: There are bilateral hypodense subdural fluid collections. This is just slightly greater than CSF density. No other changes. The skull is intact. The sinuses are clear. IMPRESSION: Bilateral hypodense subdural fluid collections. Compatible with either chronic subdural hematomas or subdural effusions. Correlate clinically. This exam was performed using automated exposure control, adjustment of mA or kV according to patient size, and/or use of iterative reconstruction technique Electronically signed by Rupert Barron 01/13/2019 5:21 PM
[2019-01-13] MEDS: DULCOLAX PR SCH (20:34)
[2019-01-14 00:50] LABS: HEMATOCRIT 22.5 % (37.0-47.0); HEMOGLOBIN 7.3 g/dL (12.0-16.0); MCH 33.3 PG (27-31); MCHC 32.4 g/dL (33-37); MCV 102.7 FL (81-99); MPV 11.9 FL (7.4-10.4); RBC 2.19 XMIL (4.2-5.4); RDW 28.6 % (11.5-14.5); WBC 6.54 X1000 (4.8-10.8)
[2019-01-14] MEDS: SOLU-CORTEF IV SCH ×4 (01:40→20:10)
[2019-01-14 07:12] LABS: HEMOGLOBIN 7.1 g/dL (12.0-16.0); IMM GRAN# 0.04 X1000 (0.0-0.04); IMM GRAN% 0.6 % (0.0-0.5); LYMPH# 0.47 X1000 (1.2-3.4); LYMPH% 7.4 % (20.5-51.1); MCH 33.2 PG (27-31); MCHC 32.3 g/dL (33-37); MCV 102.8 FL (81-99); MONO# 0.52 X1000 (0.11-0.59); MONO% 8.2 % (1.7-9.3); MPV 12.1 FL (7.4-10.4); NEUT# 5.35 X1000 (1.4-6.5); NEUT% 83.8 % (42.2-75.2); PLT 55 X1000 (130-400); RBC 2.14 XMIL (4.2-5.4); RDW 28.7 % (11.5-14.5); WBC 6.38 X1000 (4.8-10.8)
--- NOTE | 2019-01-14 07:56 | Diag Imaging Result Doc PS360 ---
CT HEAD W/O CONTRAST - 01/14/2019 INDICATION: F/up subdural fluid collections. Stable vs worse. COMPARISON: 01/13/2019 4:57 PM FINDINGS: There is no change from prior. IMPRESSION: No change from prior. This exam was performed using automated exposure control, adjustment of mA or kV according to patient size, and/or use of iterative reconstruction technique Electronically signed by Rupert Barron 01/14/2019 7:53 AM
[2019-01-14] MEDS: MARINOL PO SCH ×2 (08:20→20:10)
[2019-01-14] MEDS: SODIUM BICARBONATE PO SCH ×2 (08:20→22:04)
[2019-01-14] MEDS: FLORINEF PO SCH ×2 (08:21→20:10)
[2019-01-14] MEDS: SYNTHROID PO SCH (08:21)
[2019-01-14] MEDS: PRILOSEC PO SCH (08:21)
[2019-01-14] MEDS: SENOKOT PO SCH ×2 (08:21→20:10)
[2019-01-14] MEDS: MIRALAX PO SCH ×2 (08:21→20:11)
[2019-01-14 09:49] LABS: AGAP 11; BUN 45 mg/dL (8-22); CALCIUM 9.6 mg/dL (8.8-10.2); CHLORIDE 103 mmol/L (98-107); COSMO 280; CREATININE 0.7 mg/dL (0.5-0.9); ESTIMATED GFR > 60; GLUCOSE 132 mg/dL (70-104); POTASSIUM 5.4 mmol/L (3.5-5.1); SODIUM 133 mmol/L (136-145); TCO2 19 mmol/L (25-35)
[2019-01-14] MEDS ORDERED: NS 1,000 ML IV SCH (10:30)
--- NOTE | 2019-01-14 10:42 | PROGRESS NOTE ---
DATE: 01/14/2019 INTERVAL HISTORY: She got MRI of brain yesterday which had essentially normal pituitary. She, however, was detected to have bilateral subdural effusion versus hematoma. She also got a CT scan of her head, which detected probably chronic subdural hematoma. SUBJECTIVE: In the morning time, she is denying any new complaints. She had a bowel movement. She states she is eating better. VITALS: She had a temperature of 99.9 degrees, pulse 95, respiratory 23, and blood pressure 102/58. She is saturating 100% on room air. PHYSICAL EXAMINATION: General: Not in any acute distress. Her mucositis is better. Lungs: Air entry bilaterally equal. No wheeze or rhonchi. She does have mild crackles at inframammary region. Cardiovascular: S1, S2 normal. No murmur or gallop. Abdomen: Soft nontender. Dullness to percussion on flanks. Active bowel sounds. Extremities: Bilateral lower extremity edema. She has urine catheter. Input and output suggests she had 1500 mL urine yesterday, and 770 so far today. LABORATORY AND DIAGNOSTIC: Suggestive of hemoglobin of 7.1 and platelet of 55,000. Her potassium improved to 5.1 overnight. Her blood sugar is 173. No microbiology or imaging. No new microbiological data. Head CT in the morning time does not have any change from prior. Yesterday, head CT had bilateral hypodense subdural fluid collection compatible with either chronic subdural hematoma or subdural effusions. Brain MRI had bilateral complicated subdural collections, left was greater than the right. There may be recent subdural hemorrhages and meningitis. ASSESSMENT AND PLAN: 1. Shock, combination of hypovolemia, suspected sepsis as well as adrenal insufficiency, status post intravascular fluid resuscitation and intravenous antibiotics. Culture data including blood, urine, and peritoneal fluid did not grow any bacteria. Continue intravenous hydrocortisone. She has been off norepinephrine since 01/13. 2. Hypopituitarism. Continue intravenous hydrocortisone. I will have a discussion with Oncology if there is a suspicion of meningeal involvement with her colorectal cancer which could explain her nodularity in dura matter and effusions and subdural. 3. Metastatic colon cancer with lung and liver metastasis with coagulopathy, thrombocytopenia, and anemia related to FOLFOX and Erbitux therapy with stable to improve disease. Continue to transfuse her as needed. 4. Bilateral subdural effusions. This could be chronic subdural hematoma. It could be related to her thrombocytopenia. However, I am concerned about dura matter involvement due to metastatic disease, especially considering her hypopituitarism which could happen if there is metastatic involvement of the pituitary. I appreciate Oncology's recommendations. 5. Others: Continue levothyroxine for hypothyroidism, oral intake, physical therapy, dronabinol for anorexia, and mechanical DVT prophylaxis due to thrombocytopenia. 6. Disposition: Her condition is critical. 7. More than 30 minutes of critical care time was spent taking care of this patient. Plan of care was discussed with her. Her questions were answered. cc: Flash Roy MD ADDENDUM: I went to the bedside. Updated patient's about her course, risks of hospital acquired infection, guarded prognosis, subdural hematoma and adrenal insufficiency and answered his questions. EVELYNE
[2019-01-14] MEDS: DULCOLAX PR SCH (20:02)
[2019-01-15] MEDS: SOLU-CORTEF IV SCH ×4 (01:46→21:11)
[2019-01-15 06:28] LABS: AGAP 10; BUN 44 mg/dL (8-22); CALCIUM 8.8 mg/dL (8.8-10.2); CHLORIDE 104 mmol/L (98-107); COSMO 283; CREATININE 0.6 mg/dL (0.5-0.9); ESTIMATED GFR > 60; GLUCOSE 128 mg/dL (70-104); POTASSIUM 5.2 mmol/L (3.5-5.1); SODIUM 135 mmol/L (136-145); TCO2 21 mmol/L (25-35)
[2019-01-15 06:38] LABS: HEMATOCRIT 22.2 % (37.0-47.0); HEMOGLOBIN 7.1 g/dL (12.0-16.0); IMM GRAN# 0.03 X1000 (0.0-0.04); IMM GRAN% 0.6 % (0.0-0.5); LYMPH% 10.7 % (20.5-51.1); MCV 103.3 FL (81-99); MONO# 0.39 X1000 (0.11-0.59); MONO% 8.4 % (1.7-9.3); NEUT# 3.75 X1000 (1.4-6.5); NEUT% 80.3 % (42.2-75.2); RBC 2.15 XMIL (4.2-5.4); RDW 28.2 % (11.5-14.5); WBC 4.67 X1000 (4.8-10.8)
[2019-01-15 06:41] LABS: PLT 24 X1000 (130-400)
[2019-01-15 07:07] LABS: LYMPHS 6 % (21-51); SEGS 86 % (42-75)
[2019-01-15] MEDS: FLORINEF PO SCH ×2 (08:31→21:12)
[2019-01-15] MEDS: PRILOSEC PO SCH (08:31)
[2019-01-15] MEDS: SYNTHROID PO SCH (08:31)
[2019-01-15] MEDS: SODIUM BICARBONATE PO SCH ×2 (08:31→21:12)
[2019-01-15] MEDS: MARINOL PO SCH ×2 (08:35→21:12)
--- NOTE | 2019-01-15 09:10 | PROGRESS NOTE ---
DATE: 01/15/2019 INTERVAL HISTORY: I had a discussion with the oncologist about the patient's prognosis and MRI finding and I was informed that metastasis to dural matter of pituitary or brain is very, very rare in colorectal cancer. In looking at her health condition, I was suggested that probably palliative care could be a better option for the patient. Yesterday, I had gone to the bedside and answered all of the patient's and her 's questions. Her platelet count is low. She is getting 1 unit of transfusion. SUBJECTIVE: She is denying any complaints. She is appearing a little confused. She still has persistently poor intake. OBJECTIVE: Vitals: Current temperature 99.6 degrees, pulse 67, respiratory 17, blood pressure 95/57. She is saturating 97% room air. General: Dry skin. Appears lethargic, easily arousable to verbal stimuli. HEENT: Oral cavity is dry and mucositis which is improving. Lungs: Air entry bilaterally equal. No wheeze, rhonchi. However, she does have mild crackles in inframammary region. Cardiovascular: S1, S2 normal. No murmur, rub, or gallop. Regular. Abdomen: Soft, nontender. Active bowel sounds. She just had a bowel movement. : She has urine catheter. Extremities: She has bilateral lower extremity edema. Neuro: She is alert. She is oriented to herself, not entirely with the situation. She has intermittent confusion now. LABS: Suggestive of macrocytic anemia, thrombocytopenia. She does have hyponatremia, hyperkalemia, elevated BUN. Microbiology with no positive data. Urine culture previously had yeast. IMAGING: No new imaging today. ASSESSMENT AND PLAN: 1. Shock, combination of hypovolemic shock, suspected septic shock as well as adrenal insufficiency, status post intravenous fluid resuscitation, intravenous antibiotics and intravenous norepinephrine. Culture data has been negative. Continue intravenous hydrocortisone and try to taper it down with eventual plan of transitioning to oral. 2. Hypopituitarism considering undetectable ACTH and extremely low FSH and LH, though her prolactin growth hormone and TSH are normal. Continue intravenous hydrocortisone. 3. Metastatic colon cancer with lung and liver metastasis on FOLFOX and Erbitux with stable to improved disease but resultant thrombocytopenia. We will transfuse her with the goal of more than 10,000 to 20,000. She does have chronic appearing bilateral subdural hemorrhage without any midline shift. I will consider head CT as needed but currently conservative management has been recommended by oncology team. Metastatic involvement in dural matter is unlikely as per Oncology. 4. Others: Continue levothyroxine for hypothyroidism, dronabinol for anorexia, mechanical DVT prophylaxis considering her thrombocytopenia. DISPOSITION: She has decreasing urine output, persistent thrombocytopenia and need for recurrent IV fluids. She has not really improved in terms of her physical condition despite almost 2 weeks of hospitalization. The palliative care team is on board and my goal is to bring up home with hospice to the patient's team and to the patient's family. Plan of care discussed with the patient. Her questions were answered. I will try and keep her informed. ADDENDUM: I updated patient's about her clinical course and poor prognosis. I explained to him that considering her progressive decline, hospice could be an option for her. He wanted more information on hospice, so I will convey this to the palliative team. cc: Flash Roy MD MTDD
[2019-01-15] MEDS: MIRALAX PO SCH ×2 (09:22→21:12)
[2019-01-15] MEDS: SENOKOT PO SCH ×2 (09:22→21:15)
[2019-01-15] MEDS: DULCOLAX PR SCH (21:11)
[2019-01-16] MEDS: SOLU-CORTEF IV SCH ×4 (03:03→21:43)
[2019-01-16 06:51] LABS: HEMATOCRIT 23.3 % (37.0-47.0); HEMOGLOBIN 7.5 g/dL (12.0-16.0); IMM GRAN# 0.02 X1000 (0.0-0.04); IMM GRAN% 0.4 % (0.0-0.5); LYMPH# 0.53 X1000 (1.2-3.4); LYMPH% 11.9 % (20.5-51.1); MCH 33.5 PG (27-31); MCHC 32.2 g/dL (33-37); MONO# 0.36 X1000 (0.11-0.59); MONO% 8.1 % (1.7-9.3); NEUT# 3.54 X1000 (1.4-6.5); NEUT% 79.6 % (42.2-75.2); PLT 49 X1000 (130-400); RBC 2.24 XMIL (4.2-5.4); RDW 28.1 % (11.5-14.5); WBC 4.45 X1000 (4.8-10.8)
[2019-01-16 06:56] LABS: AGAP 10; BUN 47 mg/dL (8-22); CALCIUM 9.2 mg/dL (8.8-10.2); CHLORIDE 105 mmol/L (98-107); COSMO 287; CREATININE 0.7 mg/dL (0.5-0.9); ESTIMATED GFR > 60; GLUCOSE 122 mg/dL (70-104); POTASSIUM 5.5 mmol/L (3.5-5.1); SODIUM 137 mmol/L (136-145); TCO2 22 mmol/L (25-35)
[2019-01-16 07:13] LABS: ALB/GLOB RATIO 1.3; ALBUMIN 2.9 g/dL (3.5-5.0); DIRECT BILIRUBIN 2.1 mg/dL (0.00-0.20); TOTAL BILIRUBIN 5.59 mg/dL (0.20-1.00); TOTAL PROTEIN 5.2 g/dL (6.3-8.3)
[2019-01-16] MEDS: SYNTHROID PO SCH (08:04)
[2019-01-16] MEDS: MARINOL PO SCH ×2 (08:04→21:45)
[2019-01-16] MEDS: SODIUM BICARBONATE PO SCH ×2 (08:04→21:45)
[2019-01-16] MEDS: FLORINEF PO SCH ×2 (08:04→21:45)
[2019-01-16] MEDS: PRILOSEC PO SCH (08:04)
[2019-01-16] MEDS: MIRALAX PO SCH ×2 (08:25→21:40)
[2019-01-16] MEDS: SENOKOT PO SCH ×2 (08:25→21:42)
--- NOTE | 2019-01-16 08:55 | PROGRESS NOTE ---
DATE: 01/16/2019 INTERVAL HISTORY: No acute events overnight. SUBJECTIVE: The patient is alert, but confused, not engaging in any current meaningful clinical encounter. She is not able to remember the hospice discussion we had with her and her yesterday. VITALS: Temperature 98 degrees, pulse 62, respiratory rate 16, blood pressure 103/47. She is saturating 97% on room air. PHYSICAL EXAMINATION: General: Not in acute distress. Oral cavity: Dry. Respiratory: Air entry bilaterally equal. No wheeze, rhonchi, or crackles. Cardiovascular: S1, S2 normal. No murmur, rub or gallop. Regular. Abdomen: Soft, now distended. Tympanic to percussion and dullness on the flanks. Extremities: She has bilateral lower extremity edema. Neurologic: She is alert, oriented to herself, not entirely with the situation. LABS: Suggestive of anemia, thrombocytopenia which improved after platelet transfusion, hyperkalemia, normal kidney function, persistent abnormality in liver function test. ASSESSMENT: 1. Hypovolemic shock. 2. Septic shock. 3. 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 4. Bilateral chronic subdural hematoma. 5. Metastatic colon cancer with lung and liver metastasis. 6. Hypothyroidism. 7. Significant anorexia and physical deconditioning. 8. Thrombocytopenia likely in the setting of chemotherapy of FOLFOX and Erbitux. PLAN: I will continue patient on current treatment of intravenous steroids and fludrocortisone for her hypotension. I will also keep her on levothyroxine. She has been requiring intermittent IV fluids to match her intake. However, she has not been able to keep up the oral intake. Hospice team and palliative team has evaluated. Plan is to discharge her to home hospice whenever arrangements are made, hopefully in the near future. I will transfer patient to medical floor. I will consult surgery team to see if ascitic fluid drain for palliative purposes could be an option for her. cc: Flash Roy MD MTDD
--- NOTE | 2019-01-16 13:46 | GENERAL SURGERY CONSULTATION ---
DATE: 01/16/2019 REASON FOR CONSULTATION: Malignant ascites. SURGEON CONSULT: Dr. Alexis Celaya. HISTORY OF PRESENT ILLNESS: This is a 58-year-old female with metastatic colon cancer who has been treated by Dr. Jena Chadwick and Dr. Skinner. She has undergone chemotherapy now for over a year. She has also had significant ascites requiring paracentesis almost every 2 weeks removing multiple liters of fluid each time. She has symptoms of abdominal fullness, pressure, nausea and decreased oral intake when she gets full. PAST MEDICAL HISTORY: Metastatic colon cancer with liver and lung metastasis, gastroesophageal reflux disease, hypothyroidism. PAST SURGICAL HISTORY: Laparoscopic cholecystectomy, appendectomy, hysterectomy, tonsillectomy. ALLERGIES: No known drug allergies. HOME MEDICATIONS: Zyrtec, Lomotil, dronabinol, fludrocortisone, Synthroid, Prilosec, Zofran, Zantac, spironolactone. SOCIAL HISTORY: No tobacco, alcohol or illicit or illicit drug use. FAMILY HISTORY: Positive for cirrhosis in her father, lymphoma in the mother, heart disease, hypertension. REVIEW OF SYSTEMS: General: She feels weak and deconditioned. GI: She has fullness, some nausea, mild pain but not severe. Respiratory: She does have some shortness of breath. Ten systems were otherwise reviewed and negative except as above. PHYSICAL EXAMINATION: Vital Signs: Temperature 98 degrees, pulse 62, respirations 16, blood pressure 103/47, O2 saturation 97%. General: Somewhat malnourished appearing, chronically ill female in no acute distress. Skin: She is jaundiced with some scleral icterus. HEENT: Normocephalic, atraumatic. Extraocular muscles intact. Pupils equal, round, reactive to light. The sclerae are icteric. Neck: Supple. No thyromegaly. CV: Regular rate and rhythm. Respiratory: Bilateral breath sounds. No work of breathing. GI: Soft, distended. Fluid wave is present. Nontender. Hypoactive bowel sounds. Extremities: No clubbing, cyanosis, or edema. Skin: Warm and dry. No rash. Musculoskeletal: Moves all extremities equally and well. LABORATORY: White blood cell count 4.4, hemoglobin 7.5, hematocrit 23, platelet count 49,000. Electrolytes reviewed and notable for potassium of 5.5, total bilirubin 5.6. ASSESSMENT AND PLAN: A 58-year-old female with metastatic colon cancer and severe recurrent ascites. I discussed with her placement of a peritoneal drain for home use to palliate her symptoms of the ascites. This may help reduce her frequent trips to the hospital for paracentesis. We went over the risks and benefits including bleeding, infection, injury to the bowel and other imponderables. She understands and is considering this. We will talk with her other physicians and we could consider doing this next week prior to discharge. cc: Alexis Celaya MD
[2019-01-16] MEDS: NORCO-5 PO PRN (18:38)
[2019-01-16] MEDS: DULCOLAX PR SCH (21:43)
[2019-01-17] MEDS: SOLU-CORTEF IV SCH ×4 (01:46→20:38)
[2019-01-17 07:13] LABS: ESTIMATED GFR > 60
[2019-01-17 07:15] LABS: AGAP 11; BUN 51 mg/dL (8-22); CALCIUM 8.5 mg/dL (8.8-10.2); CHLORIDE 101 mmol/L (98-107); COSMO 284; CREATININE 0.7 mg/dL (0.5-0.9); GLUCOSE 131 mg/dL (70-104); POTASSIUM 5.4 mmol/L (3.5-5.1); SODIUM 134 mmol/L (136-145); TCO2 22 mmol/L (25-35)
[2019-01-17 07:44] LABS: HEMATOCRIT 25.4 % (37.0-47.0); IMM GRAN# 0.03 X1000 (0.0-0.04); IMM GRAN% 0.7 % (0.0-0.5); LYMPH# 0.46 X1000 (1.2-3.4); LYMPH% 10.6 % (20.5-51.1); MCH 33.6 PG (27-31); MCHC 31.5 g/dL (33-37); MCV 106.7 FL (81-99); MONO# 0.24 X1000 (0.11-0.59); MONO% 5.5 % (1.7-9.3); MPV 12.5 FL (7.4-10.4); NEUT# 3.61 X1000 (1.4-6.5); NEUT% 83.2 % (42.2-75.2); PLT 32 X1000 (130-400); RBC 2.38 XMIL (4.2-5.4); RDW 28.9 % (11.5-14.5); WBC 4.34 X1000 (4.8-10.8)
[2019-01-17] MEDS: MARINOL PO SCH ×2 (09:25→20:38)
[2019-01-17] MEDS: SENOKOT PO SCH ×2 (09:25→20:38)
[2019-01-17] MEDS: SODIUM BICARBONATE PO SCH ×2 (09:25→20:37)
[2019-01-17] MEDS: SYNTHROID PO SCH (09:25)
[2019-01-17] MEDS: PRILOSEC PO SCH (09:25)
[2019-01-17] MEDS: FLORINEF PO SCH ×2 (09:25→20:37)
[2019-01-17] MEDS: MIRALAX PO SCH (09:32)
--- NOTE | 2019-01-17 14:49 | PROGRESS NOTE ---
DATE: 01/17/2019 INTERVAL HISTORY: I had discussion with the hospice team and patient's family had agreed to go to the hospice. I was informed that the patient's son may not have an adequate understanding about the patient's medical course. I went to the bedside. However, the son was not available. Previously, I had discussion with her about her clinical condition. Surgical team had evaluated the patient and currently ongoing discussion with oncology team about the need for intra- abdominal drain. VITALS: Temperature 98.5 degrees, pulse 58, respiratory rate 16, blood pressure 97/62. She is saturating 99% on room air. PHYSICAL EXAMINATION: She has not been able to eat well. Her skin is dry. Oral cavity has mucositis. Air entry bilaterally equal. No wheeze, rhonchi, or crackles. S1, S2 normal. No murmur, rub, or gallop. Abdomen is soft, nontender. There is dullness to percussion, bilateral flanks. She is alert and oriented to herself. She is not oriented with the situation. She has bilateral lower extremity edema. LABS: Suggestive of platelet count of 32,000, hemoglobin of 8, and WBC of 4.3. She does have acceptable range of electrolytes. ASSESSMENT: 1. Hypovolemic shock. 2. Septic shock. 3. 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 4. Bilateral chronic subdural hematoma. 5. Metastatic colon cancer with lung and liver metastases. 6. Hypothyroidism. 7. Significant anorexia and physical deconditioning. 8. Thrombocytopenia in the setting of chemotherapy of FOLFOX and Erbitux. PLAN: I will continue her on fludrocortisone and intravenous hydrocortisone while she is in the hospital and transition her to oral hydrocortisone at the time of discharge. I will continue her on dronabinol for appetite stimulation. Hospice team has evaluated the patient. Plan is for her to go to home on home hospice. However, currently, she could not be discharged as ascitic fluid drain placement is pending. I will await further surgery recommendations. cc: Flash Roy MD
--- NOTE | 2019-01-17 18:09 | PROGRESS NOTE ---
DATE: 01/17/2019 I went to the bedside to update the family. However, patient's son and are not there. Some of the other family members are present. I updated them that I wanted to have a discussion with son and about possible sciatic fluid drain tube placement. I got her 's number and I called her son, however, no one picked up and have left a voice message. cc: Flash Roy MD
--- NOTE | 2019-01-17 18:33 | GENERAL SURGERY PROGRESS NOTE ---
DATE: 01/17/2019 SUBJECTIVE: The patient has had no new events overnight. Her abdomen is not bothering her at this time. OBJECTIVE: Vitals: She is afebrile. Vital signs are stable. General: She is chronically ill- appearing female in no distress. Gastrointestinal: Soft, nondistended, nontender. LABORATORY: Platelet counts are noted at 32,000. White blood cell count 4.3. ASSESSMENT/PLAN: 58-year-old female with metastatic colon cancer and recurrent ascites. We are consider placement of a peritoneal drain for palliation. She is not ready to commit at this time and wants me to discuss with Dr. Rousseau which we will do tomorrow. cc: Alexis Celaya MD
[2019-01-18] MEDS: SOLU-CORTEF IV SCH ×4 (03:23→23:45)
[2019-01-18] MEDS: NORCO-5 PO PRN ×3 (03:29→23:43)
[2019-01-18] MEDS: ZOFRAN IV PRN ×2 (03:29→09:45)
[2019-01-18 07:39] LABS: HEMATOCRIT 26.3 % (37.0-47.0); HEMOGLOBIN 8.5 g/dL (12.0-16.0); IMM GRAN# 0.03 X1000 (0.0-0.04); IMM GRAN% 0.6 % (0.0-0.5); LYMPH# 0.41 X1000 (1.2-3.4); LYMPH% 7.5 % (20.5-51.1); MCH 34.7 PG (27-31); MCHC 32.3 g/dL (33-37); MCV 107.3 FL (81-99); MONO# 0.38 X1000 (0.11-0.59); MPV 12.3 FL (7.4-10.4); NEUT# 4.62 X1000 (1.4-6.5); NEUT% 84.9 % (42.2-75.2); PLT 40 X1000 (130-400); RBC 2.45 XMIL (4.2-5.4); RDW 29.7 % (11.5-14.5); WBC 5.44 X1000 (4.8-10.8)
[2019-01-18] MEDS: SODIUM BICARBONATE PO SCH ×2 (09:32→23:44)
[2019-01-18] MEDS: SENOKOT PO SCH ×2 (09:32→23:45)
[2019-01-18] MEDS: MARINOL PO SCH ×2 (09:32→23:45)
[2019-01-18] MEDS: FLORINEF PO SCH ×2 (09:32→23:45)
[2019-01-18] MEDS: SYNTHROID PO SCH (09:32)
[2019-01-18] MEDS: PRILOSEC PO SCH (09:32)
--- NOTE | 2019-01-18 17:12 | PROGRESS NOTE ---
DATE: 01/18/2019 INTERVAL HISTORY: No acute events overnight. I just had a discussion with her primary oncologist, Dr. Rousseau about the need for ascitic fluid drain. He thinks that the patient might benefit from that drain before discharge. SUBJECTIVE: Patient denies any complaints. Patient's family members including and son, and [id number] are at bedside. I discussed with them about the plan. VITALS: Currently, temperature of 98.6 degrees, pulse 66, respiratory rate 14, blood pressure 90/60, and saturating 96% on room air. PHYSICAL EXAMINATION: General: Not in acute distress. HEENT: Oral cavity is dry. Her mucositis is improving. Lungs: Air entry bilaterally equal. No wheeze, rhonchi, or crackles. Cardiovascular: S1, S2 normal. No murmur or gallop. Abdomen: Distended. Soft. Nontender, except mild tenderness over the flanks with dullness to percussion bilateral flanks. Extremities: Bilateral lower extremity edema. Neurologic: She is alert. She is oriented to herself. She has had intermittent episodes of confusion though during encounter. She mumbles something which may not make any sense. Examination otherwise nonfocal. LABORATORY: Labs are suggestive of WBC of 5000. Stable anemia. Stable platelet count. No BMP today. MICROBIOLOGY: No positive data. No new imaging. ASSESSMENT AND PLAN: 1. Hypovolemic shock. 2. Septic shock. 3. 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 4. Bilateral chronic appearing subdural hematoma. 5. Metastatic colon cancer with lung and liver mets and malignant ascites. 6. Significant anorexia physical deconditioning related to cancer. 7. Thrombocytopenia in the setting of chemotherapy of FOLFOX and Erbitux. PLAN: 1. I will continue patient on regular diet. She can eat to her preference. I will keep her on intravenous steroids for adrenal insufficiency, and change it to the oral steroid regimen of Hydrocortisone 15 mg at nighttime and 10 mg in the morning time at the time of discharge. 2. The patient's family is awaiting discussion with primary oncologist before making a final decision to allow the ascitic fluid drain placement for palliative purposes. 3. Disposition: Once ascitic fluid drainage tube has been placed for palliative purpose, the patient can be discharged home with home hospice. Hospice Team has accepted the patient, and arrangements were made to go home as soon as the drain is placed. If family decides not to pursue the drain placement, then patient could be discharged to hospice tomorrow after possibly one time paracentesis. Oncology evaluation and recs are pending regarding this. 4. Plan of care discussed with the patient, her , her son. Their questions have been answered. cc: Flash Roy MD MTDD
[2019-01-19] MEDS: SOLU-CORTEF IV SCH ×3 (03:48→14:50)
[2019-01-19] MEDS: NORCO-5 PO PRN ×4 (03:52→15:50)
[2019-01-19 06:42] LABS: HEMATOCRIT 27.9 % (37.0-47.0); HEMOGLOBIN 8.7 g/dL (12.0-16.0); MCH 34.3 PG (27-31); MCHC 31.2 g/dL (33-37); MCV 109.8 FL (81-99); MPV 12.4 FL (7.4-10.4); RBC 2.54 XMIL (4.2-5.4); RDW 29.9 % (11.5-14.5); WBC 5.38 X1000 (4.8-10.8)
[2019-01-19 06:43] LABS: INR 1.33; PROTIME 16.7 Seconds (11.0-16.0); PTT 27.8 Seconds (22.3-41.8)
[2019-01-19] MEDS: SODIUM BICARBONATE PO SCH (09:42)
[2019-01-19] MEDS: PRILOSEC PO SCH (09:43)
[2019-01-19] MEDS: FLORINEF PO SCH (09:43)
[2019-01-19] MEDS: MARINOL PO SCH (09:43)
[2019-01-19] MEDS: SYNTHROID PO SCH (09:44)
[2019-01-19] MEDS: SENOKOT PO SCH (09:44)
--- NOTE | 2019-01-19 14:26 | Diag Imaging Result Doc PS360 ---
EXAM: US ABD PARACENTESIS W S/I 01/19/2019 HISTORY: Ascitis TECHNIQUE: Ultrasound-guided paracentesis COMMENT: The risks and benefits of the procedure including the possibility of bleeding, infection, puncture of hollow viscus or reaction to lidocaine was discussed with the patient and she agreed to the procedure. Following sterile preparation the skin anterolaterally in the upper right abdomen and administration of 1% lidocaine to the skin and deeper soft tissues, the paracentesis catheter was placed and subsequently 3 L of dark derick fluid was drained. IMPRESSION: Successful ultrasound-guided paracentesis. Electronically signed by Jacob Dya 01/19/2019 2:24 PM
[2019-01-19 14:49] VITALS: BP 100/57
[2019-01-19] MEDS ORDERED: SALINE LOCK IV FLUID XX ONE (15:40)
--- NOTE | 2019-01-19 16:17 | DISCHARGE SUMMARY ---
ADMISSION DATE: 01/04/2019 DISCHARGE DATE: DISCHARGE DIAGNOSES: 1. Hypovolemic shock. 2. Septic shock. 3. 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 4. Bilateral chronic appearing subdural hematoma. 5. Metastatic colon cancer with lung and liver metastases and significant malignant ascites. 6. Significant anorexia, physical deconditioning related to cancer. 7. Thrombocytopenia in the setting of chemotherapy. PROCEDURES PERFORMED: 1. Chest x-ray dated 01/04/2019. Impression: Stable chest. 2. Echocardiogram dated 01/04/2019. Impression: Ejection fraction 55 to 60%. 3. Abdomen and pelvis CT scan dated 01/04/2019. Impression: Severe constipation, ascites, body wall edema, advanced hepatic atrophy. 4. Chest x-ray dated 01/05/2019. Impression: Poor inspiration. 5. Abdominal ultrasound dated 01/06/2019. Impression: Calcified masses in the liver most likely representing treated metastasis, massive ascites, the possibility of medical renal disease is suggested. 6. Extremity venous ultrasound dated 01/06/2019. Interpretation: No evidence of acute DVT or superficial venous thrombosis of the bilateral lower extremities. 7. Abdomen x-ray dated 01/07/2019. Impression: Critically low lung volumes, nonspecific bowel- gas pattern. 8. Chest x-ray dated 01/08/2019. Impression: Poor inspiration. 9. Chest CT dated 01/08/2019. Impression: No significant interval change. 10. Ultrasound guided paracentesis dated 01/11/2019, 6.2 L were withdrawn without difficulty. 11. Brain MRI dated 01/13/2019. Impression: Bilateral complicated subdural collections, left greater than right. This may represent recent subdural hemorrhage or meningitis. CT is recommended. 12. Head CT dated 01/13/2019. Impression: Bilateral hypodense subdural fluid collections compatible with either chronic subdural hematomas or subdural effusions. 13. Head CT dated 01/14/2019. Impression: No change from prior. 14. Ultrasound paracentesis dated 01/19/2019. Impression: Successful ultrasound-guided paracenteses where 3 L of dark derick fluid was drained. CONSULTS: Hematology/Oncology Department, Dr. Jena Chadwick/Dr. Foreign Rousseau. Gastroenterology Department, Dr. Skinner. HOSPITAL COURSE: A 58-year-old female unfortunately with a history of stage IV metastatic colorectal adenocarcinoma involving liver, lungs, presented and admitted on 01/04/2019 with a chief complaint of weakness and poor oral intake for about a couple weeks' of duration. Last chemotherapy was 1 week before admission. She went to see Dr. Rousseau in the office and was found to be extremely hypotensive and she was sent over to the emergency room. Her blood pressure was 70/40. She received IV fluids and the hospitalist team was consulted. Apparently, she has not been able to eat anything by mouth for a couple of weeks. She has been having intermittent diarrhea and watery stools. No fever. No chills. No nausea. No vomiting. No cough. She was upgraded due to hypovolemic shock, electrolyte imbalance. Like I said, she receive IV fluids. She was found to have some adrenal insufficiency and she was started on hydrocortisone. She was diagnosed with septic shock versus hypovolemic shock. She was placed on Levophed and antibiotics. She has been coagulopathic. She received vitamin K and we followed this progression closely. Gastroenterology Department and Hematology/Oncology Department were consulted, but she seems to be declining on a daily basis. We basically did a paracenteses during this hospitalization twice. In 1 of them 6 L of fluid were removed and the other 1 done today 3 L were removed. Palliative Care was consulted as well as hospice. It has been recommended to go home with hospice and they accepted that. It looks like her condition and prognosis is extremely poor. Today after the procedure we have send this patient home. They seem to understand, her at the bedside and the patient was completely alert and oriented x3. PHYSICAL EXAMINATION: Vital signs: Temperature 99.3 degrees, pulse 60, respiratory rate 16, blood pressure 100/57, oxygen saturation 94% on room air. HEENT: Head normocephalic. No trauma. PERRLA. Neck: Supple. No JVD. No masses. Central trachea. Lungs: Some crepitus at the bases. Abdomen: Distended. It is soft but generalized tenderness to palpation, mostly on the flanks. Extremities: Bilateral lower extremity edema. Neurological: This patient is alert and she is oriented to herself. She has been having some episodes of confusion, but today she is able to recognize family members at the bedside and say her date of . LABORATORY: WBC 5.3, hemoglobin 8.7, hematocrit 27.9, platelets 56,000. Glucose 140. PT 16.7, INR 1.3, PTT 27.8. DISCHARGE MEDICATIONS: This patient will be discharged home with hospice. They will take care of her medications, but I have recommended to continue with Zyrtec 10 mg p.o. daily, diphenoxylate atropine tablets 2.5/0.025 p.o. t.i.d. as needed, dronabinol 1 capsule p.o. b.i.d., fludrocortisone 0.1 mg p.o. b.i.d., Fletcher 5 one tablet p.o. q.4 hours as needed, hydrocortisone 10 mg p.o. q.a.m. and 15 mg p.o. q.p.m., Synthroid 50 mcg p.o. daily, omeprazole 20 mg p.o. daily, Zofran 4 mg p.o. q.6 hours as needed for nausea and vomiting, Senokot 1 tablet p.o. b.i.d., sodium bicarbonate 13 mg p.o. b.i.d. spironolactone 25 mg p.o. daily as needed. DISPOSITION: This patient will be discharged home with hospice. She does have an extremely poor prognosis. Case has been discussed with Dr. Rousseau, Hematology/Oncology Department, which has suggested to do a paracentesis and send this patient home. TIME SPENT: Time discharging this patient and discussing the case with the family, around 35 minutes. cc: Mario Navas MD
== END 2019-01-19 16:06 | disposition hospice, home (50) | DRG 871 ==
LOC: SUPCPDRO → ED 10:03 → ICU 15:55 → SUATTDRO 15:55 → 3N 01-16 11:51
PROVIDERS: ATTEND Internal Medicine